=== PATIENT | female | born 1960 | race Caucasian/White ===

== ENCOUNTER → 2017-06-07 | Outpatient (CLI) | payer OTHER | LOC: FIMAGING 18:48 | PROVIDERS: ATTEND Psychiatry & Neurology Neurology | DX: R20.2 Paresthesia of skin (principal) ==

== ENCOUNTER 2017-09-16 11:00 | Day surgery (SDC) | payer OTHER ==
[2017-09-16 11:41] VITALS: PULSE 96
[2017-09-16] MEDS ORDERED: LR 1,000 ML IV ONE (11:52)
--- NOTE | 2017-09-16 12:06 | PDANEPAE ---
ANE History of Present Illness h/o polyps, diarrhea, here for colonoscopy ANE Past Medical History - Cardiovascular History Hx Hypertension: No Hx Arrhythmias: No Hx Chest Pain: No Hx Coronary Artery / Peripheral Vascular Disease: No Hx CHF / Valvular Disease: No Hx Palpitations: No - Pulmonary History Hx COPD: No Hx Asthma/Reactive Airway Disease: No Hx Recent Upper Respiratory Infection: No Hx Oxygen in Use at Home: No Hx Sleep Apnea: No Sleep Apnea Screening Result - Last Documented: Positive Pulmonary History Comment: PRONE TO BRONCHITIS WITH URIs - Neurologic History Hx Cerebrovascular Accident: No Hx Seizures: No Hx Dementia: No Neurologic History Comment: MIGRAINES OCCAS - Endocrine History Hx Diabetes: No Hypothyroid: Yes Obesity: moderate Endocrine History Comment: HYPOTHYROID - Renal History Hx Renal Disorders: No - Liver History Hx Hepatic Disorders: No Hepatic History Comment: CHOLECYSTECTOMY - Neurological & Psychiatric Hx Hx Neurological and Psychiatric Disorders: Yes Neurological / Psychiatric History Comment: CYMBALTA - Cancer History Hx Cancer: No - Congenital Disorder History Hx Congenital Disorders: No - GI History Hx Gastrointestinal Disorders: Yes Gastrointestinal History Comment: DIARRHEA. BLOOD TINGED. CRAMPING - Other Health History Other Health History: NEG. DRY SKIN W/OCCAS HIVES - Chronic Pain History Chronic Pain: Yes (L KNEE PAIN) - Surgical History Prior Surgeries: CHOLECYSTECTOMY 1998 ANE Review of Systems Review of Systems: - Exercise capacity Exercise capacity: >=4 METS ANE Patient History - Allergies Allergies/Adverse Reactions: aspirin Allergy (Verified 09/15/17 16:29) iodine Allergy (Verified 09/15/17 16:29) SOB FOLLOWING AN MRI W/CONTRAST NSAIDS (Non-Steroidal Anti-Inflamma Allergy (Verified 09/15/17 16:29) - Home Medications Home Medications: Clobetasol 0.05% 09/15/17 [Last Taken 1 Week Ago ~09/09/17] Cymbalta 09/15/17 [Last Taken 09/15/17] Hydrocodon-Acetaminophen 5-500 09/15/17 [Last Taken 1 Week Ago ~09/09/17] Imodium 2 mg (*) 09/15/17 [Last Taken Unknown] Lamotrigine 09/15/17 [Last Taken 09/15/17] Levothyroxine 09/15/17 [Last Taken 09/16/17] Zyrtec 09/15/17 [Last Taken 09/15/17] - NPO status NPO Status: no food or drink >8 hours NPO Since - Liquids (Date): 09/15/17 NPO Since - Liquids (Time): 11:30 NPO Since - Solids (Date): 09/15/17 NPO Since - Solids (Time): 11:30 - Anes Hx Anes Hx: post operative nausea - Smoking Hx Smoking Status: Never smoked - Alcohol Use Alcohol Use: Rarely - Family Anes Hx Family Anes Hx: none Family Hx Anesthesia Complications: NEG ANE Labs/Vital Signs - Vital Signs Blood Pressure: 138/86 Heart Rate: 96 Respiratory Rate: 16 O2 Sat (%): 94 Height: 162.56 cm Weight: 108.862 kg ANE Physical Exam - Airway Neck exam: FROM Mallampati Score: Class 2 Mouth exam: normal dental/mouth exam - Pulmonary Pulmonary: no respiratory distress, clear to auscultation - Cardiovascular Cardiovascular: regular rate and rhythym, no murmur, rub, or gallop - ASA Status ASA Status: III ANE Anesthesia Plan Anesthesia Plan: GA with mask Total IV Anesthesia: Yes
[2017-09-16] MEDS ORDERED: PROPOFOL/EMULSION 500 MG/50 ML BOTTLE IV ONE ×2 (12:09→12:34)
--- NOTE | 2017-09-16 12:14 | PDGENHP ---
History & Physical Chief Complaint: hematochezia, hx polyps, diarrhea History of Present Illness: see above Pertinent Past, Social, Family History: reviewed Relevant Physical Exam: nad Cardiorespiratory Assessment: RRR. ctab
[2017-09-16] MEDS ORDERED: ONDANSETRON 4 MG/2 ML VIAL IVP PRN (12:46)
[2017-09-16] MEDS ORDERED: ACETAMINOPHEN 500 MG TAB PO PRN (12:46)
[2017-09-16] MEDS ORDERED: NALOXONE HCL 0.4 MG/ML INJ IVP PRN (12:46)
--- NOTE | 2017-09-16 12:46 | POSTANESTH ---
Post Anesthetic Evaluation Cardiovascular Status: Normal, Stable, Similar to Pre-Op Cond Respiratory Status: Normal, Stable, Similar to Pre-op Cond. Level of Consciousness/Mental Status: Mildly Sleepy, Arousable Pain Control: Adequate, Prn Tx Ordered Nausea/Vomiting Control: Adequate, Prn Tx Ordered Complications Possibly Related to Anesthesia: None Noted
--- NOTE | 2017-09-16 12:46 | GIREPORT ---
[facility] Surgical Services - Endoscopy Department Patient Name: Lorena Darling Procedure Date: 09/16/2017 11:43 AM Patient Type: Outpatient Attending MD/ ER Physician: Lavelle Zabala MD Procedure: Colonoscopy Indications: Clinically significant diarrhea of unexplained origin, Hematochezia Providers: Lavelle Zabala MD Medicines: Propofol per Anesthesia Complications: No immediate complications. Description of Procedure: After obtaining informed consent, the scope was passed under direct vis ion. Throughout the procedure, the patient's blood pressure, pulse, and oxyg en saturations were monitored continuously. The Colonoscope with irrigatio n channel was introduced through the anus and advanced to the terminal il eum, with identification of the appendiceal orifice and IC valve. The colono scopy was performed without difficulty. The patient tolerated the procedure w ell. The quality of the bowel preparation was good. The terminal ileum, ileo cecal valve, appendiceal orifice, and rectum were photographed. Findings: The terminal ileum appeared normal. Normal mucosa was found in the entire colon. Biopsies for histology wer e taken with a cold forceps from the right colon, left colon and rectum f or evaluation of microscopic colitis. Many small and large-mouthed diverticula were found in the sigmoid colo n. Internal hemorrhoids were found. The hemorrhoids were small. Estimated Blood Loss: Estimated blood loss: none. Post Op Diagnosis: - No source of diarrhea was seen, pending biopsies for microscopic coli tis. Bleeding likely from hemorrhoids, and if continues could consider offic e visit to assess for banding. - The examined portion of the ileum was normal. - Normal mucosa in the entire examined colon. Biopsied. - Diverticulosis in the sigmoid colon. - Internal hemorrhoids. Recommendation: - Patient has a contact number available for emergencies. The signs and symptoms of potential delayed complications were discussed with the pat ient. Return to normal activities tomorrow. Written discharge instructions we re provided to the patient. - Resume previous diet. - Continue present medications. - Repeat colonoscopy in 5 years for surveillance. - Await pathology results. - Return to GI office in 1 month. - Thank you for allowing me to participate in the care of this patient. Attending Participation: I personally performed the entire procedure. I personally performed the entire procedure without the assistance of a fellow, resident or instructor adjunct surgical technician. Lavelle Zabala MD Lavelle Zabala MD 09/16/2017 12:45:24 PM This report has been signed electronicallyLavelle Zabala MD Number of Addenda: 0 Note Initiated On: 09/16/2017 11:43 AM Total Procedure Duration Time 0 hours 19 minutes 38 seconds [email or web address]
[2017-09-16 13:11] VITALS: RESP 13
[2017-09-16 14:34] VITALS: BP 140/91; O2SAT 94
[2017-09-16 14:36] VITALS: TEMP 97.9
== END 2017-09-16 14:40 | disposition home or self-care (01) ==
LOC: FSGY 11:00
PROVIDERS: ATTEND Internal Medicine Gastroenterology
PROC: 0DBE8ZX Excision of Large Intestine, Via Natural or Artificial Opening Endoscopic, Diagnostic (ICD-10-PCS; principal; 2017-09-16 12:45)
DX: K64.8 Other hemorrhoids (principal); K92.1 Melena; K57.30 Diverticulosis of large intestine without perforation or abscess without bleeding; E03.9 Hypothyroidism, unspecified; E66.9 Obesity, unspecified; Z86.010 Personal history of colon polyps
CPT/HCPCS: J2704

== ENCOUNTER 2018-02-12 11:28 | Emergency (ER) | payer OTHER ==
--- NOTE | 2018-02-12 12:15 | EDPHY ---
H & P Time Seen by Provider: 02/12/18 11:42 HPI/ROS: CHIEF COMPLAINT: Back pain HISTORY OF PRESENT ILLNESS: This is a 57-year-old female who reports injuring her back on Wednesday, 5 days ago. She did this while she was bending and trying to assist a large dog that was getting into her car. She has had persistent low back pain since that time. The pain is at the level of her waist and spreads bilaterally. She has no pain radiating into her buttocks or her legs. She denies numbness or tingling in her legs. She has not had lower extremity weakness. She denies bowel or bladder problems. She is allergic to NSAIDs and has been taking Tylenol along with an occasional Vicodin. She has had some pain relief, but continues with significant discomfort. She rates her pain as "9/10". This injury while she was working and she has been unable to see her workman's comp physician. REVIEW OF SYSTEMS: A ten point review of systems was performed and is negative with the exception of the items mentioned in the HPI. In addition, she notes that she had a prolonged cough last year, now resolved. Past medical history: 1. Currently on hypertension medication 2. Hypothyroid 3. Depression and anxiety 4. 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 Macular surgery on [id number] 2. 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 She does not use tobacco products. She drinks alcohol occasionally. She lives alone. General Appearance: Alert. Vital signs reviewed. Eyes: Pupils equal and round, no conjunctival injection, no discharge. Anicteric. Respiratory: Lungs are clear to auscultation; no wheezes, rales, or rhonchi. Cardiovascular: Regular rate and rhythm; no murmur, rub, or gallop. Gastrointestinal: Abdomen is obese, soft and nontender, no masses or organomegaly, bowel sounds normal. Skin: Warm and dry, no rashes on exposed skin, normal color. Back: Nontender to palpation over the thoracolumbar spine. No CVAT. No appreciable muscle spasm. Extremities: No lower extremity edema, no calf tenderness or swelling. Neurological: Alert and oriented. Moving all four extremities easily and equally. Strength is 5 over 5 bilaterally with testing of all major motor groups. Sensation is intact to light touch over all 4 extremities. Deep tendon reflexes are 2+ in the biceps and knees bilaterally. Gait is normal. Psychiatric: Normal affect. - Medical/Surgical History Hx Diabetes: No - Social History Smoking Status: Never smoked Constitutional: Initial Vital Signs Temperature (C) 37.1 C 02/12/18 11:35 Heart Rate 94 02/12/18 11:35 Respiratory Rate 16 02/12/18 11:35 Blood Pressure 115/83 H 02/12/18 11:35 O2 Sat (%) 95 02/12/18 11:35 O2 Delivery Mode Room Air Allergies/Adverse Reactions: aspirin Allergy (Verified 02/12/18 11:41) iodine Allergy (Verified 02/12/18 11:41) SOB FOLLOWING AN MRI W/CONTRAST NSAIDS (Non-Steroidal Anti-Inflamma Allergy (Verified 02/12/18 11:41) Home Medications: Medication Instructions Recorded Clobetasol 0.05% 09/15/17 Cymbalta 09/15/17 Lamotrigine 09/15/17 Levothyroxine 09/15/17 Zyrtec 09/15/17 2 Bp Meds? 02/12/18 Cyclobenzaprine [Flexeril 10 MG 10 mg PO TID #10 tab 02/12/18 (*)] Hydrocodone/APAP 5/325 [[place] 1 - 2 tab PO Q4 PRN #10 tab 02/12/18 5/325 (RX)] Multivitamins 02/12/18 methylPREDNISolone [Medrol Dose 4 mg PO DAILY #1 ea 02/12/18 Aravind] Medical Decision Making ED Course/Re-evaluation: Low back pain that began while bending and lifting. No neurologic findings on exam. I do not feel that imaging is warranted at this point in time. She is unable to take any NSAIDs due to allergy. She has taken Medrol in the past and a Medrol Dosepak as prescribed. In addition I am recommending lidocaine patches, which were applied in the emergency department. She will continue with Tylenol and with Vicodin for more severe pain. She understands that she should not take more than 3000 mg of Tylenol in a 24 hr time period and she also understands that Vicodin contains 325 mg of Tylenol per pill. She has also been given a prescription for Flexeril, along with precautions. She will follow-up with workman's compensation. We reviewed the neurologic danger signs that should prompt her to be re-evaluated immediately. She has no urinary complaints and I did not suspect urinary tract infection or pyelonephritis. There is no evidence of infection such as diskitis. She has had no trauma and I do not suspect fracture. She does not have abdominal pain. Differential Diagnosis: Back pain including but not limited to muscular pain, herniated disc, spine fracture, intra-abdominal causes and urinary tract infection. - Data Points Medications Given: Discontinued Medications Miscellaneous Medication (Icy Hot Lidocaine/Menthol 4%/1% Patch) 1 patch TD EDNOW ONE Stop: 02/12/18 12:24 Last Admin: 02/12/18 12:31 Dose: 1 patch Departure - Departure Disposition: Home, Routine, Self-Care Clinical Impression: Lumbar strain Qualifiers: Encounter type: initial encounter Qualified Code(s): S39.012A - Strain of muscle, fascia and tendon of lower back, initial encounter Condition: Good Instructions: Low Back Strain (ED), Lower Back Exercises (ED) Additional Instructions: Follow-up with workman's compensation as per your employer. Take the Medrol Dosepak as prescribed. I recommend that you continue taking Tylenol every 4-6 hours, take it on a regular basis. Remember that Vicodin has 325 mg of Tylenol in each dose. You can also continue with your Vicodin but do not take more than 3000 mg of Tylenol in a 24 hr time period. I am also prescribing Flexeril, a muscle relaxant to see if this will help. You can take this every 8 hours as needed. The Vicodin and the Flexeril will make you woozy and possibly off balance, sleepy and sometimes a bit confused. As you know, you cannot drive or work on these medications. In addition, you should use lidocaine patches as prescribed. You can buy 4% Lidocaine patches over the counter (any brand is fine). Use them according to the instructions on the packaging--ask the pharmacist about appropriate disposal of the patches. Referrals: Meeta Aponte MD [Primary Care Provider] - As per Instructions Stand Alone Forms: Narcotic Guidelines, Work Excuse Prescriptions: Cyclobenzaprine [Flexeril 10 MG (*)] 10 mg PO TID #10 tab Hydrocodone/APAP 5/325 [[place] 5/325 (RX)] 1 - 2 tab PO Q4 PRN #10 tab PRN Reason: pain methylPREDNISolone [Medrol Dose Aravind] 4 mg PO DAILY #1 ea
[2018-02-12] MEDS ORDERED: LIDOCAINE 4%/MENTHOL 1% PATCH TD ONE (12:23)
[2018-02-12] MEDS ORDERED: ACETAMINOPHEN 325 MG TAB PO ONE (12:33)
[2018-02-12] MEDS ORDERED: CYCLOBENZAPRINE 10 MG TAB PO ONE (12:52)
[2018-02-12] MEDS: predniSONE 20 MG TAB PO ONE ×2 (13:02→13:03)
[2018-02-12 13:11] VITALS: BP 131/83
[2018-02-12] MEDS ORDERED: PATCH REMOVAL 1 EA PATCH TD SCH (21:00)
== END 2018-02-12 13:08 | disposition home or self-care (01) ==
LOC: CED 11:28
DX: S39.012A Strain of muscle, fascia and tendon of lower back, initial encounter (principal); I10 Essential (primary) hypertension; X58.XXXA Exposure to other specified factors, initial encounter; Y92.69 Other specified industrial and construction area as the place of occurrence of the external cause; Y99.0 Civilian activity done for income or pay; Y93.89 Activity, other specified
CPT/HCPCS: J7512

== ENCOUNTER 2018-02-21 07:45 | Inpatient (IN) | payer OTHER ==
--- NOTE | 2018-02-21 08:33 | EDPHY ---
H & P Time Seen by Provider: 02/21/18 08:14 HPI/ROS: CHIEF COMPLAINT: Back pain HISTORY OF PRESENT ILLNESS: The patient is a 57-year-old female who returns to the emergency department ongoing back pain. Patient was seen in the emergency department on 01/26/2018 for an injury sustained at work 5 days earlier. 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 She was prescribed with NSAIDs, lidocaine patches and a Medrol Dosepak. Patient has subsequently followed up with her workman's Comp physician on . She finished her Medrol Dosepak. She is currently taking Vicodin and Flexeril. She states her pain is worsening. It is her lower back right greater than left. It radiates into her right buttock and her right posterior leg. She feels mild weakness in her right leg. She reports that her right leg gives out upon standing. No incontinence of urine or stool. No fevers or chills. Patient feels dehydrated because she is unable to take care of herself at home due to the pain. REVIEW OF SYSTEMS: My complete review of systems is negative except as mentioned in the HPI. 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 She drinks occasionally. Smoking Status: Never smoked Physical Exam: Vitals noted GENERAL: Mild acute distress, alert. HEENT: Eyes normal to inspection, normal pharynx, no signs of dehydration. NECK: [No thyromegaly, no lymphadenopathy, supple. RESPIRATORY: Clear to auscultation bilaterally, no rales, rhonchi or wheezing. CVS: Regular rate and rhythm, no rubs, murmurs, or gallops. ABDOMEN: Soft, nontender, nondistended, no organomegaly. BACK: Normal to inspection, no CVA tenderness. No rash. No spinal tenderness. The patient does have tenderness palpation over her right SI joint. Positive leg raise on the right. SKIN: Normal color, no rash, warm, dry. No pallor. EXTREMITIES: No pedal edema, no calf tenderness, no Homans sign or cords, no joint swelling. NEURO/PSYCH: Alert and oriented, normal mood and affect, normal motor sensory exam. Constitutional: Initial Vital Signs Temperature (C) 36.7 C 02/21/18 07:52 Heart Rate 130 H 02/21/18 07:52 Respiratory Rate 24 H 02/21/18 07:52 Blood Pressure 106/92 H 02/21/18 07:52 O2 Sat (%) 96 02/21/18 07:52 O2 Delivery Mode Room Air Allergies/Adverse Reactions: aspirin Allergy (Verified 02/21/18 07:50) iodine Allergy (Verified 02/21/18 07:50) SOB FOLLOWING AN MRI W/CONTRAST NSAIDS (Non-Steroidal Anti-Inflamma Allergy (Verified 02/21/18 07:50) Home Medications: Medication Instructions Recorded Cymbalta 09/15/17 Lamotrigine 09/15/17 Levothyroxine 09/15/17 Zyrtec 09/15/17 2 Bp Meds? 02/12/18 Cyclobenzaprine [Flexeril 10 MG 10 mg PO TID #10 tab 02/12/18 (*)] Hydrocodone/APAP 5/325 [[place] 1 - 2 tab PO Q4 PRN #10 tab 02/12/18 5/325 (RX)] Multivitamins 02/12/18 Medical Decision Making - Diagnostics Imaging Results: Imaging Impressions Lumbar Spine MRI 02/21/18 08:34 Impression: 1. Acute extruded right paracentral disk herniation at L4-L5 associated with an annular tear. There is also a mild compression deformity of the superior endplate of the L5 vertebral body with bone marrow edema. 2. Subacute mild compression deformity of L2 vertebral body with probable underlying hemangioma. 3. Left neural foraminal stenosis at L5-S1 secondary to broad-based left foraminal disk protrusion. Results called to Dr. Jewell Bustamante at 10:30 a.m. ED Course/Re-evaluation: In the emergency department I discussed possible etiologies with the patient. I answered all her questions. An IV was placed. Laboratory studies were obtained. Patient was given Solu-Medrol 125 mg IV, Valium 5 mg IV and morphine 4 mg IV MRI: Please refer the dictated report by the radiologist. The patient has noted stenosis and disc herniation. I discussed the results with Neurosurgery. I also admitted the patient to the hospitalist service. Dr. Beltre will admit. 1100: I discussed the case with Dr. Tello who was in the emergency department evaluated the patient. Differential Diagnosis: My differential includes but is not limited to musculoskeletal strain, disc herniation, ligamentous injury, mass, malignancy, cauda equina syndrome - Data Points Medications Given: Discontinued Medications Diazepam (Valium) 2.5 mg IVP EDNOW ONE Stop: 02/21/18 08:36 Last Admin: 02/21/18 09:00 Dose: 2.5 mg Hydromorphone HCl (Dilaudid) 0.5 mg IVP EDNOW ONE Stop: 02/21/18 08:36 Last Admin: 02/21/18 08:59 Dose: Not Given Sodium Chloride (Ns) 1,000 mls @ 0 mls/hr IV EDNOW ONE; Wide Open PRN Reason: Protocol Stop: 02/21/18 08:36 Last Admin: 02/21/18 09:00 Dose: 1,000 mls Methylprednisolone Sodium Succinate (Solu-Medrol) 125 mg IVP EDNOW ONE Stop: 02/21/18 08:37 Last Admin: 02/21/18 08:59 Dose: 125 mg Morphine Sulfate (Morphine) 4 mg IVP EDNOW ONE Stop: 02/21/18 09:03 Last Admin: 02/21/18 09:05 Dose: 4 mg Departure - Departure Disposition: Home, Routine, Self-Care Clinical Impression: Low back pain Qualifiers: Chronicity: acute Back pain laterality: bilateral Sciatica presence: with sciatica Sciatica laterality: sciatica of right side Qualified Code(s): M54.41 - Lumbago with sciatica, right side Condition: Good
[2018-02-21] MEDS ORDERED: HYDROmorphONE/DILAUDID 2 MG/ML INJ IVP ONE (08:35)
[2018-02-21] MEDS ORDERED: DIAZEPAM 5 MG/ML 1 ML SYR IVP ONE (08:35)
[2018-02-21] MEDS ORDERED: NS 1,000 ML IV ONE (08:35)
[2018-02-21] MEDS ORDERED: methylPREDNISolone SOD SUCC 125 MG/2 ML VIAL IVP ONE (08:36)
[2018-02-21 10:55] LABS: PLATELET COUNT 398 10^3/uL (150-400)
[2018-02-21] MEDS ORDERED: CARBOXYMETHYLCELLULOSE 1% 0.4 ML DROPERETTE EACHEYE PRN (12:33)
[2018-02-21] MEDS ORDERED: ONDANSETRON DISINTEGRATING 4 MG TAB PO PRN (12:49)
[2018-02-21] MEDS ORDERED: ONDANSETRON 4 MG/2 ML VIAL IVP PRN (12:49)
--- NOTE | 2018-02-21 13:14 | GCON ---
[f rep st] CONSULTATION DATE OF CONSULTATION: 02/21/2018 REASON FOR CONSULTATION: Low back pain with right lower extremity radiculopathy and weakness. HISTORY OF PRESENT ILLNESS: Ms. Darling is an otherwise fairly healthy 57- year-old woman who presents back to the emergency department today for progressive right lower extremity radiculopathy and weakness, as well as increasing low back pain. The patient states that she was lifting an approximately [id number]-phkoe dog from the ground into a car on January 21, 2018. At that time, she presented to the [facility] emergency department on January 26, 2018, at which point she was prescribed NSAIDs, lidocaine patches and Medrol dose pack. She was subsequently followed up with her Workman's Comp physician at [facility]. The patient finished her Medrol Dosepak just a few days ago and was also taking Vicodin and Flexeril and noted that her low back pain and right lower extremity pain were worsening, as well as some right hip flexion weakness. The pain is located into the right lower extremity with almost no left lower extremity radiculopathy. The pain goes in the right buttock, right posterior leg into her calf and foot. No loss of bowel or bladder function or incontinence. She does have a history of IBS, but denies any perineal or saddle anesthesia. Because of the inability to take care of herself, she presents emergency department today for further evaluation and management. MRI was completed, which demonstrated a large right-sided L4-5 disk herniation for which a neurosurgical consultation was requested. REVIEW OF SYSTEMS: A complete 10-point review of systems from the patient intake form were reviewed by myself, significant only for those noted above in the HPI. PAST SURGICAL HISTORY: 1. Cholecystectomy. 2. History of macular surgery. PAST MEDICAL HISTORY: 1. Depression. 2. Anxiety. 3. Hypothyroidism. 4. Hypertension. 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 She denies tobacco use or illicit drug use, but does utilize alcohol socially. ALLERGIES: 1. Aspirin. 2. Iodine. 3. NSAIDs. MEDICATIONS: 1. Cymbalta. 2. Lamotrigine. 3. Levothyroxine. 4. Zyrtec. 5. Cyclobenzaprine. 6. [place] 5/325. 7. Multivitamin. FAMILY HISTORY: Negative for any aneurysms or brain tumors. PHYSICAL EXAMINATION: VITAL SIGNS: Blood pressure 123/65, heart rate 89, O2 saturation 94% on room air, temperature 37.2. GENERAL: The patient is lying in gurney on her lateral side and appears to be somewhat uncomfortable, but in no acute distress. She is quite pleasant and cooperative with the examination. Affect appears to be appropriate. HEENT: Head is atraumatic, normocephalic. Pupils are normal to inspection, anicteric. Sclerae are clear. CARDIOVASCULAR : Deferred. PULMONARY: Deferred. MOTOR: Shows 5/5 strength with bilateral batch blender strength biceps, triceps, deltoid, left sided hip flexion, knee flexion, extensor, plantar dorsiflexion. Right hip flexor is 5-/5 and appears to be somewhat pain and effort limited. SENSORY: Shows intact sensation throughout all major dermatomes of the bilateral upper and lower extremities throughout. OTHER: Negative Forman's, negative Babinski. REFLEXES: 1+ reflexes at the bilateral brachioradialis and patellae. NEUROLOGIC: CN II-XII intact: PERRLS, face symmetric, tongue protrudes midline, uvula and palate elevate symmetrically , facial sensation is intact to light touch, shoulder shrug symmetric, intact hearing to light finger scratch, EOMI. MEDICAL DECISION MAKING: Patient underwent MRI of the lumbar spine without contrast completed at [facility] and reviewed by myself on the PACS system. There is an acute extruded right paracentral disc herniation L4- L5 associated with an annular tear. There is also a mild compression deformity of the superior endplate of the L5 vertebral body with bone marrow edema. There is subacute mild compression deformity of L2 with probable underlying hemangioma. There is left neural foraminal stenosis L5-S1 secondary to broad- based left foraminal disc extrusion ASSESSMENT/PLAN: Ms Darling is a 57-year-old woman who suffered acute onset of low back pain with right lower extremity radiculopathy which has progressed to right sided hip flexion weakness since a lifting injury on approximately January 21, 2018. The patient has been treated with Lidoderm patches, pain medications including oral steroids. I discussed with the patient her treatment options moving forward and reviewed her MRI scan with her in the emergency department today. I explained to her that this point her weakness was somewhat concerning to myself in that given the extruded fragment and herniation with the weakness, surgery would be indicated. Her other treatment options would include a possible spinal injection with PT to work on strengthening after her pain control. Discussed the pros and cons of these options and she at this time, would like to try a steroid injection for pain control. We will try to get this completed in the hospital and I have placed an order for IR to complete this during this hospitalization. I did explain to her that if she does not improve with any further interventions or develops worsening weakness or any red flag signs or symptoms, that she is going to require surgical intervention in the way of a right-sided L4-5 diskectomy with lateral recess decompression. She expressed understanding. I discussed this with the ER room physician as well as Dr. Beltre, who were in agreement. She will be admitted to the medicine service for pain control. Please note, the patient was seen in the emergency department at approximately 11:00 am on February 21, 2018. /[id number]/MODL MTDD
--- NOTE | 2018-02-21 13:14 | GHP ---
[f rep st] HISTORY AND PHYSICAL DATE OF ADMISSION: 02/21/2018 The patient is a 57-year-old female with a history of depression, anxiety, and recent eye surgery, wh o presents with a couple weeks of low back pain. 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 She has had lower extremity pain and weakness since then. Apparently, there was some relationship of this injury to work and going through her company's channels delayed her care, but she presents to the emergency department this morning with excruciating pain. She has not had fifi wel or bladder incontinence. She did have diarrhea this morning. She has had some subjective weakne ss in her leg. She has not fallen. She has not had fever, chills, cough, sputum, nausea, or vomitin g. She is able to walk 5 miles with her dogs without chest pain or other exertional symptoms. REVIEW OF SYSTEMS: Complete 10-point review of systems conducted, negative except as noted in the HP I. PAST MEDICAL HISTORY: 1. Depression. 2. Anxiety. 3. Irritable bowel syndrome. 4. Hypothyroidism. 5. Recent eye surgery. She was placed on antihypertensives in the postoperative period. ALLERGIES: Aspirin, iodine, NSAIDs. HOME MEDICATIONS: Amlodipine, Toponas, triamterene/hydrochlorothiazide, Refresh eye tears, cetirizine, cyclobenzaprine, duloxetine, lamotrigine, levothyroxine, loperamide. SOCIAL HISTORY: No tobacco. Occasional alcohol. FAMILY HISTORY: Mother had primary biliary cirrhosis and of that. PHYSICAL EXAMINATION: VITAL SIGNS: Temp 37, blood pressure 123/65, pulse 89, breathing 18 times a m inute, 94% on room air. GENERAL: No acute distress. HEENT: Sclerae anicteric. Oropharynx clear. Mucous membranes moist. NECK: Supple without lymphadenopathy or JVD. LUNGS: Clear to auscultatio n bilaterally. HEART: S1, S2. ABDOMEN: Soft, nontender, nondistended. LOWER EXTREMITIES: Without edema. Calves nontender. SKIN: Without rash. NEUROLOGIC: Lower extremity neurologic exam is not performed, given the patient's level of pain. DIAGNOSTICS: I discussed the case Dr. Austin Gusman. Lower extremity MRI shows acute disk herniation at L4-L5 associated with an annular tear, as well as mild compression deformity of the superior endplate. ASSESSMENT/PLAN: This 57-year-old female presents with severe lower extremity pain secondary to acut e L4-L5 disk tear. 1. L4-L5 disk tear. The patient is seen by Neurosurgery, offered surgery. She wishes to try an epi dural steroid injection first. I did discuss with the patient that an acute injury like this typical ly responds well to surgery. I have attempted to order an epidural steroid injection. 2. Low back pain with muscle spasm. She takes a muscle relaxant at home. I put her on Valium, oxyc odone, and steroids. 3. Depression. Will continue her medicines. 4. Anxiety. Will continue her Lamictal and Cymbalta. 5. Diarrhea. Will follow. 6. Prophylaxis. The patient is a candidate for pharmacologic venous thromboembolism prophylaxis. Jamel fernando, given need for upcoming spinal procedures, will hold and provide sequential compression devic es. 7. Disposition. Inpatient status. /[id number]/MODL
[2018-02-21] MEDS: oxyCODONE IR 5 MG TAB PO PRN (14:06)
[2018-02-21] MEDS: DIAZEPAM 5 MG TAB PO PRN (14:06)
[2018-02-21] MEDS: ACETAMINOPHEN 500 MG TAB PO SCH ×2 (14:07→22:51)
[2018-02-21] MEDS: NS 1,000 ML IV SCH (14:12)
[2018-02-21] MEDS: methylPREDNISolone SOD SUCC 125 MG/2 ML VIAL IVP SCH ×3 (14:15→22:52)
[2018-02-21] MEDS: lamoTRIgine 100 MG TAB PO SCH (14:20)
--- NOTE | 2018-02-21 14:32 | PDMN ---
Medical Necessity Medical necessity: Pt meets inpt criteria per MD order and MCG M-63, Back Pain, A-1 day. Pt admitted w/increasing lower back pain and progressive RLE radiculopathy, weakness, difficulty w/ADL's from L4-L5 disk tear, will have steroid injection for pain control with possibility of surgery if no improvement , med nec for on going inpt treatment and monitoring.
[2018-02-21] MEDS ORDERED: IOPAMIDOL (ISOVUE-M 300) 15 ML VIAL ONE (15:33)
[2018-02-21] MEDS ORDERED: TRIAMCINOLONE ACETONIDE 200 MG/5 ML MDV IM ONE (15:33)
[2018-02-21] MEDS ORDERED: LIDOCAINE 1% 300 MG/30 ML SDV ONE (15:34)
[2018-02-21] MEDS: CYCLOBENZAPRINE 10 MG TAB PO SCH ×2 (16:27→22:51)
[2018-02-21] MEDS: LOPERAMIDE HCL 2 MG CAP PO PRN (19:57)
[2018-02-22] MEDS: oxyCODONE IR 5 MG TAB PO PRN ×4 (04:36→21:25)
[2018-02-22 05:05] LABS: PLATELET COUNT 442 10^3/uL (150-400)
[2018-02-22 05:12] LABS: INR 1.02 (0.83-1.16); PROTIME(PATIENT) 13.6 SEC (12.0-15.0)
[2018-02-22] MEDS: LEVOTHYROXINE 200 MCG TAB PO SCH (05:23)
[2018-02-22] MEDS: ACETAMINOPHEN 500 MG TAB PO SCH ×3 (05:23→22:54)
[2018-02-22] MEDS: methylPREDNISolone SOD SUCC 125 MG/2 ML VIAL IVP SCH ×4 (05:23→23:49)
--- NOTE | 2018-02-22 07:12 | NEUSURGPN ---
Assessment/Plan: Assessment: 57 yo female that is admitted to with lower back pain and RLE pain that has a right sided HNP at L4/5 Plan: -right sided HNP at L4/5: pt underwent an injection yesterday and is better but not "100%", she has noticed some improvements -strength is better -PT/OT pending this am -pt will work with RN/PT/OT today and see how she does-if she is better we can dc and have her follow up in the office in 2-3 weeks for a recheck -if she is not improved to a satisfactory point and if not cleared from PT/OT then we can talk about surgery -if surgery indicated she will need a right L4/5 CYNTHIA -please call with any questions or concerns -warning signs given -pt understands and agrees -d/w Dr Gusman Subjective: Awake and alert. NAD. Eating/drinking and voiding. No f/c/n/v/d. No combs/neck/ chest/abd or gu complaints. Objective: AAO x 3, PERRLA/EOMI no droop CN 2-12 grossly intact +lt touch 5/5 BUE/BLE = Neuro Check Frequency: per routine Urinary Catheter in Place: No - Physician Discussed Patient with : Nase[facility] Neurosurgery Physical Exam - Vitals, I&O, Labs I and O 02/21/18 02/22/18 02/23/18 05:59 05:59 05:59 Intake Total 1400 Output Total 1200 Balance 200 Weight 97.522 kg Intake: Oral (ml) 400 IV Infused (ml) 1000 Output: Urine (ml) 1200 Toilet 1200 Other: Output Comment Toilet Diarrhea Number of Voids 1 Toilet 1 Vital Signs Temp Pulse Resp BP Pulse Ox 36.6 C 68 17 123/61 H 95 02/22/18 04:00 02/22/18 04:00 02/22/18 04:00 02/22/18 04:00 02/22/18 04:00 Laboratory Results 02/22/18 04:28 02/22/18 04:28 ICD10 Worksheet Patient Problems: Problems Problem Status Onset Low back pain Acute
[2018-02-22] MEDS: CETIRIZINE 10 MG TAB PO SCH (07:22)
[2018-02-22] MEDS: CYCLOBENZAPRINE 10 MG TAB PO SCH ×3 (07:23→22:54)
[2018-02-22] MEDS: lamoTRIgine 100 MG TAB PO SCH (07:23)
[2018-02-22] MEDS: DULoxetine 60 MG CAP PO SCH (07:23)
--- NOTE | 2018-02-22 08:45 | HOSPPROG ---
Hospitalist Progress Note Assessment/Plan: Patient is a 57-year-old female with history of depression, anxiety and recent eye surgery. She presented the emergency room with ongoing back pain for the past couple weeks. 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 She subsequently had a injection yesterday at L4-5. Today is my 1st encounter with the patient. Chart reviewed. * acute back pain, L4-L5 disc tear -status post injection -pain is slightly better -if she does not improve she will need surgery * depression and anxiety -home medications continued * diarrhea -no further complaints *leukocytosis -secondary to steroids *Obesity with a BMI of 36.9 -likely impacting the above -she's motivated to take better care of herself overall *Plan: suspect she will need surgery, pain is minimally controlled during my evaluation. To get evaluated by PT and OT. Subjective: Lorena says her pain is ongoing in the back and going down her leg. Objective: Vital Signs Temp Pulse Resp BP Pulse Ox 36.6 C 64 18 125/73 H 99 02/22/18 07:21 02/22/18 07:21 02/22/18 07:21 02/22/18 07:21 02/22/18 07:21 Laboratory Results 02/22/18 04:28 02/22/18 04:28 02/21/18 02/22/18 02/23/18 05:59 05:59 05:59 Intake Total 1400 Output Total 1200 Balance 200 PT 13.6 SEC (12.0-15.0) 02/22/18 04:28 INR 1.02 (0.83-1.16) 02/22/18 04:28 - Physical Exam Constitutional: appears nourished, obese, uncomfortable, No not in pain Eyes: PERRL Ears, Nose, Mouth, Throat: hearing normal Cardiovascular: regular rate and rhythym Respiratory: no respiratory distress Skin: warm Musculoskeletal: muscular tenderness Neurologic: AAOx3 Psychiatric: interacting appropriately ICD10 Worksheet Patient Problems: Problems Problem Status Onset Low back pain Acute
[2018-02-22] MEDS ORDERED: Herbals/Supplements -Info Only PO SCH (09:00)
[2018-02-22] MEDS: DIAZEPAM 5 MG TAB PO PRN (10:55)
--- NOTE | 2018-02-22 14:40 | ASMTCMCOM ---
CM Note CM Note Notes: Reviewed patient's chart for d/c planning purposes. Patient admitted with Lower Back Pain. Discussed with RN, patient scheduled for surgery tomorrow. Patient's d/c plan to be determined at this time. CM will follow-up post surgery. Current Plan: TBD Date Signed: 02/22/2018 02:39 PM Electronically Signed By:Liv Honeycutt RN
[2018-02-23] MEDS: LEVOTHYROXINE 200 MCG TAB PO SCH (05:18)
[2018-02-23] MEDS: methylPREDNISolone SOD SUCC 125 MG/2 ML VIAL IVP SCH ×2 (05:18→12:51)
[2018-02-23] MEDS: ACETAMINOPHEN 500 MG TAB PO SCH ×3 (05:18→22:15)
--- NOTE | 2018-02-23 06:07 | POSTANESTH ---
Post Anesthetic Evaluation Cardiovascular Status: Normal, Stable Respiratory Status: Requires Airway Assist Level of Consciousness/Mental Status: Moderately Sleepy Pain Control: Adequate, Prn Tx Ordered Nausea/Vomiting Control: Adequate, Prn Tx Ordered Complications Possibly Related to Anesthesia: None Noted
--- NOTE | 2018-02-23 06:10 | PDANEPAE ---
ANE History of Present Illness 57 you female with acute back injury about two weeks ago for L 4/5 CYNTHIA today. ANE Past Medical History - Cardiovascular History Hx Hypertension: Yes Hx Arrhythmias: No Hx Chest Pain: No Hx Coronary Artery / Peripheral Vascular Disease: No Hx CHF / Valvular Disease: No Hx Palpitations: No Cardiovascular History Comment: pt reports she was on diuretic and Ca channel katherine for macular detachment, not HTN. Unclear if she has HTN. - Pulmonary History Hx COPD: No Hx Asthma/Reactive Airway Disease: No Hx Recent Upper Respiratory Infection: No Hx Oxygen in Use at Home: No Hx Sleep Apnea: No Sleep Apnea Screening Result - Last Documented: Positive Pulmonary History Comment: PRONE TO BRONCHITIS WITH URIs - Neurologic History Hx Cerebrovascular Accident: No Hx Seizures: No Hx Dementia: No Neurologic History Comment: MIGRAINES OCCAS - Endocrine History Hx Diabetes: No Hypothyroid: Yes Obesity: moderate - Renal History Hx Renal Disorders: No - Liver History Hx Hepatic Disorders: No Hepatic History Comment: CHOLECYSTECTOMY - 1998 - PONV - Neurological & Psychiatric Hx Hx Neurological and Psychiatric Disorders: Yes Neurological / Psychiatric History Comment: anxiety/depression - on CYMBALTA - Cancer History Hx Cancer: No - Congenital Disorder History Hx Congenital Disorders: No - GI History Hx Gastrointestinal Disorders: Yes Gastrointestinal History Comment: DIARRHEA. BLOOD TINGED. CRAMPING - Other Health History Other Health History: dry eyes. DRY SKIN W/OCCAS HIVES - Chronic Pain History Chronic Pain: Yes (L KNEE PAIN) - Surgical History Prior Surgeries: CHOLECYSTECTOMY 1998 ANE Review of Systems Review of Systems: - Systems Cardiac: Reports: no symptoms Respiratory: Reports: no symptoms Muscolosketal: Reports: back pain ANE Patient History - Allergies Allergies/Adverse Reactions: aspirin Allergy (Verified 02/21/18 07:50) iodine Allergy (Verified 02/21/18 07:50) SOB FOLLOWING AN MRI W/CONTRAST NSAIDS (Non-Steroidal Anti-Inflamma Allergy (Verified 02/21/18 07:50) - Home Medications Home Medications: Acetaminophen [Tylenol 325mg (*)] 325 mg PO Q6 PRN 02/21/18 [Last Taken 02/20/18 ] Carboxymethylcellulose 1% [Refresh Celluvisc (*)] 1 drop EACHEYE PRN PRN [Last Taken 02/20/18] Cetirizine [ZyrTEC 10 mg (*)] 10 mg PO DAILY 02/21/18 [Last Taken 02/20/18] Duloxetine HCl [Duloxetine HCl] 60 mg PO DAILY 02/21/18 [Last Taken 02/21/18] Herbals/Supplements -Info Only 1 ea PO DAILY 02/21/18 [Last Taken Unknown] Levothyroxine Sodium [Levothyroxine Sodium] 200 mcg PO DAILY@06 02/21/18 [Last Taken 02/21/18] Loperamide HCl [Imodium 2 mg (*)] 2 mg PO PRN PRN 02/21/18 [Last Taken 02/20/18] Triamterene/Hctz 75/50 [Maxzide 75-50 mg Tab (*)] 1 tab PO DAILY 02/21/18 [Last Taken 02/17/18] amLODIPine BESYLATE [Amlodipine Besylate] 5 mg PO DAILY 02/21/18 [Last Taken 12/31] lamoTRIgine [Lamotrigine] 200 mg PO DAILY 02/21/18 [Last Taken 02/21/18] - NPO status NPO Since - Liquids (Date): 02/23/18 NPO Since - Liquids (Time): 00:00 NPO Since - Solids (Date): 02/23/18 NPO Since - Solids (Time): 00:00 - Anes Hx Anes Hx: post operative nausea and vomiting - Smoking Hx Smoking Status: Never smoked - Family Anes Hx Family Anes Hx: neg - N/A Family Hx Anesthesia Complications: NEG ANE Labs/Vital Signs - Labs Result Diagrams: 02/22/18 04:28 02/22/18 04:28 - Vital Signs Blood Pressure: 121/68 Heart Rate: 63 Respiratory Rate: 17 O2 Sat (%): 98 Height: 162.56 cm Weight: 97.522 kg ANE Physical Exam - Airway Neck exam: FROM Mallampati Score: Class 2 - Pulmonary Pulmonary: clear to auscultation - Cardiovascular Cardiovascular: regular rate and rhythym - ASA Status ASA Status: II ANE Anesthesia Plan Anesthesia Plan: general endotracheal anesthesia
[2018-02-23] MEDS ORDERED: LR 1,000 ML IV ONE (06:43)
[2018-02-23] MEDS ORDERED: CEFAZOLIN 2 GM/DEXTROSE/100 ML BAG IV ONE (06:44)
--- NOTE | 2018-02-23 06:45 | PDHPUP ---
History & Physical Update H&P update statement: This history and physical update is based on an assessment of the patient which was completed after admission or registration (within 24 hours), but prior to the surgery/procedure. H&P update: H&P reviewed & patient examined, changes noted (Patient has an improvement in her symptoms following the BRYANT but is still having issues with ambulation and transfer. Right hip flexor with 5-/5 everything else 5/5. Reviewed the risks and benefits with her and she wishes to proceed with surgery. Consents have been signed and site marked. All questions answered.)
[2018-02-23] MEDS ORDERED: EPINEPHrine 1 MG/ML INJ ONE (06:48)
[2018-02-23] MEDS ORDERED: THROMBIN (BOVINE) 20,000 UNIT VIAL TP ONE (06:48)
[2018-02-23] MEDS ORDERED: BUPIVACAINE 0.25% 30 ML SDV ONE (06:48)
[2018-02-23] MEDS ORDERED: CHLORHEXIDINE GLUC HIBICLENS 118 ML BTL TP ONE (06:48)
[2018-02-23] MEDS ORDERED: BACITRACIN 50,000 UNITS/10 ML SYR IRR ONE (06:49)
[2018-02-23] MEDS: DIAZEPAM 5 MG TAB PO PRN ×2 (06:55→22:15)
[2018-02-23] MEDS ORDERED: PROPOFOL/EMULSION 500 MG/50 ML BOTTLE IV ONE ×2 (07:03→08:32)
[2018-02-23] MEDS ORDERED: ROCURONIUM 50 MG/5 ML VIAL ONE (07:03)
[2018-02-23] MEDS ORDERED: LIDOCAINE 2% 5 ML SDV ONE (07:03)
[2018-02-23] MEDS ORDERED: DEXAMETHASONE 4 MG/ML VIAL ONE (07:03)
[2018-02-23] MEDS ORDERED: fentaNYL 250 MCG/5 ML INJ ONE (07:03)
[2018-02-23] MEDS ORDERED: PROPOFOL 200 MG/20 ML VIAL ONE (08:05)
[2018-02-23] MEDS ORDERED: ONDANSETRON 4 MG/2 ML VIAL ONE (08:42)
[2018-02-23] MEDS ORDERED: NALOXONE HCL 0.4 MG/ML INJ IVP PRN ×2 (08:45→10:06)
[2018-02-23] MEDS ORDERED: fentaNYL 100 MCG/2 ML INJ IVP PRN (08:45)
[2018-02-23] MEDS ORDERED: LR 500 ML IV PRN (08:45)
[2018-02-23] MEDS ORDERED: ALBUTEROL 3 ML DEYVIAL IH PRN (08:45)
[2018-02-23] MEDS ORDERED: oxyCODONE IR 5 MG TAB PO PRN (08:45)
[2018-02-23] MEDS ORDERED: PROMETHAZINE HCL 25 MG/ML INJ IVP PRN (08:45)
[2018-02-23] MEDS ORDERED: CYCLOBENZAPRINE 10 MG TAB PO ONE (09:00)
[2018-02-23] MEDS: CYCLOBENZAPRINE 10 MG TAB PO SCH ×3 (09:42→22:15)
[2018-02-23] MEDS: CETIRIZINE 10 MG TAB PO SCH (09:42)
--- NOTE | 2018-02-23 09:56 | POSTOPPROG ---
Post Op Note Date of Operation: 02/23/18 Surgeon: Austin Gusman Shipping Specialist: So Anesthesiologist: Marcelo Anesthesia: GET(General Endotracheal), Local (Specify) Pre-op Diagnosis: HNP right L4/5 Post-op Diagnosis: S/P CYNTHIA with LD placement for preexisting CSF leak discovered at surgery Indication: Lumbar stenosis Procedure: right sided L4/5 CYNTHIA, LD placement Findings: CSF leak noted Inf/Abcess present in the surg proc area at time of surgery?: Yes Depth: Deep Incisional (Fascial) EBL: 50-100 Total fluids administered: see anesthesia record Drains: Other (LD open continuous at 10-15 cc hr) Specimen(s): cultures sent for analysis surgery showed ?purulence vs steroid mixed with CSF fluid
--- NOTE | 2018-02-23 10:05 | SOAPPROG ---
SOAP Progress Note Assessment/Plan: Post Op Visit: S: Awake and alert. NAD. Pt with some expected lower back pain, RLE feels a bit better but tough to tell per pt as was present with ambulation as well. O: AFVSS/PERRLA/EOMI no droop CN 2-12 grossly intact +lt touch 5/5 BUE/BLE = with some continue right HF weakness at 5-/5 due to pain CDI LD in place and open at 10-15 cc/hr A/P: 57 yo female that is admitted to IM with lower back pain and RLE pain that has a right sided HNP at L4/5. Pt is s/p right L4/5 CYNTHIA with LD placement. CSF leak discovered during exposure prior to any contact with Dura by Dr Gusman (please see op note for details and further description). ?injection related or disc herniation related. Cloudy dc noted in CSF and will test for infection vs steroid from BRYANT. BC x 2 ordered -call with any questions or concerns -take medications as directed -d/w Pt the plan and need for lying flat/LD and reardon-she is in agreement -all questions and concerns answered -d/w Dr Gusman and update given Objective: Vital Signs Temp Pulse Resp BP Pulse Ox 36.4 C 64 20 132/67 H 100 02/23/18 09:00 02/23/18 09:45 02/23/18 09:45 02/23/18 09:45 02/23/18 09:45 Laboratory Results 02/22/18 04:28 02/22/18 04:28 02/22/18 02/23/18 02/24/18 05:59 05:59 05:59 Intake Total 1400 Output Total 1200 2200 Balance 200 -2200 PT 13.6 SEC (12.0-15.0) 02/22/18 04:28 INR 1.02 (0.83-1.16) 02/22/18 04:28 ICD10 Worksheet Patient Problems: Problems Problem Status Onset CSF leak Acute Herniated intervertebral disc of lumbar spine Acute Low back pain Acute Lumbar radicular pain Acute - ICD10 Problem Qualifiers (1) Herniated intervertebral disc of lumbar spine (2) CSF leak (3) Lumbar radicular pain
[2018-02-23] MEDS ORDERED: LACTULOSE 20 GM/30 ML UDCUP PO PRN (10:06)
[2018-02-23] MEDS ORDERED: POLYETHYLENE GLYCOL 3350 17 GM PKT PO PRN (10:06)
[2018-02-23] MEDS ORDERED: NS 500 ML IV PRN (10:06)
[2018-02-23] MEDS ORDERED: HYDROmorphONE/DILAUDID 6 MG/30 ML PCA IV PRN (10:06)
[2018-02-23] MEDS ORDERED: ZOLPIDEM TARTRATE 5 MG TAB PO PRN (10:06)
[2018-02-23] MEDS ORDERED: HYDROCODONE/APAP 5/325 TAB PO PRN (10:06)
[2018-02-23] MEDS ORDERED: HYDROmorphONE/DILAUDID 1 MG/ML INJ IVP PRN (10:06)
[2018-02-23] MEDS ORDERED: MAGNESIUM HYDROXIDE 30 ML UDCUP PO PRN (10:06)
[2018-02-23] MEDS ORDERED: BISACODYL 10 MG SUPP PR PRN (10:06)
[2018-02-23] MEDS ORDERED: DEXMEDETOMIDINE HCL 400 MCG in NS 100 ML IV SCH (10:30)
[2018-02-23] MEDS ORDERED: VANCOMYCIN 1.25 GM in D5W 250 ML IV SCH (10:30)
[2018-02-23] MEDS: NS 1,000 ML IV SCH (11:04)
--- NOTE | 2018-02-23 11:18 | GOP ---
[f rep st] OPERATIVE REPORT DATE OF OPERATION: 02/23/2018 SURGEON: Austin Gusman MD BEAM BUILDER HELPER: Wilfred Rizzo PA-C. PREOPERATIVE DIAGNOSIS: 1. Herniated nucleus pulposus with spinal stenosis, right side L4-L5, with progressive low back pain, right lower extremity radiculopathy and weakness. 2. Treatment refractory to nonoperative intervention. POSTOPERATIVE DIAGNOSIS: Lumbar spinal stenosis and radiculopathy with weakness secondary to lumbar spinal epidural abscess. PROCEDURE PERFORMED: 1. Right-sided L4-L5 hemilaminotomy with mesial facetectomy, microdiskectomy and evacuation of epidural abscess. 2. Use of intraoperative fluoroscopy, less than 1 hour physician time. 3. Use of operating microscope. 4. Lumbar drain placement. 5. Use of intraoperative neuromonitoring. FINDINGS: there was ventral epidural abscess with a ventral dural tear and CSF leak remote from our hemilaminotomy SPECIMENS: Cultures were sent to Microbiology from the epidural fluid collection. INDICATIONS: The patient is a 57-year-old woman who unfortunately suffered low back pain with right lower extremity radiculopathy after lifting a heavy dog 4 or 5 weeks prior to admission to the hospital. The patient presented for the second time to the emergency department with progressive right lower extremity weakness and progressive low back pain. Imaging demonstrated a right L4-L5 disk herniation with a ventral epidural fluid collection which was thought to be secondary to a hematoma. The patient underwent an injection but failed nonoperative management. At this point, we decided to proceed forth with surgical intervention. DESCRIPTION OF PROCEDURE: The patient was brought to the operating theater and underwent general endotracheal anesthesia without complications. She had Venodynes, HEATHER hose, and appropriate lines placed by Anesthesia. She was flipped prone on the Adrian frame, and all bony processes were inspected and padded. The lower lumbar region was then prepped and draped in usual sterile surgical fashion. A time-out was completed per protocol, and the patient received antibiotics within 1 hour of incision. Using lateral fluoroscopy and a spinal needle, we picked our entry point to the L4-L5 level. This was marked as a vertical incision at this level. The incision was infiltrated with Marcaine with epinephrine. The incision was taken down with the scalpel blade and then, using monopolar, taken down to the right side of the L4-L5 interlaminar space. Deep retractors were placed to maintain exposure, and we confirmed our level using lateral fluoroscopy. The microscope was brought in the field to assist with microscopic dissection and to maintain illumination and magnification. Using a combination of the bur tip on the drill and Kerrison punches, we completed right-sided L4-L5 hemilaminotomy with mesial facetectomy and lateral recess decompression. I then resected the ligamentum flavum. When I retracted the thecal sac and nerve root medially, she had immediate egress of cloudy-appearing purulent material from the ventral epidural space. I immediately cultured this material and sent it for stat Gram stain. Using the angled nerve hooks, I lifted up the nerve root and dura and noted that the purulent material was then followed by clear fluid which was suspicious for a CSF leak. It was not clear to me where this was emanating as this appeared to be on the ventral aspect of the thecal sac and more cranial and remote to where our surgical approach was. I then reached up more cranially and pulled out more purulent material and some disk material. We completed diskectomy at this level. I Valsalva'd the patient twice to 40 mmHg and she continued to have clear fluid emanating from the space , which appeared to be more suspicious for a CSF leak. I could not repair the leak primarily because I did not know where the leak was coming from. At this point I consulted Dr Vallecillo, my partner, who provided an intraoperative consult. We decided placement of a lumbar drain would be appropriate. Once I felt that everything was well decompressed, I irrigated and then closed this surgical wound in multiple layers, including Vicryl sutures for the deep layers and a running nylon stitch for the skin. I then took a large gauge needle and moved cranial to our incision and to approach the spinal canal at the L3-4 level, at which point we placed a lumbar drain at this level. There appeared to be slightly more cloudy fluid from the lumbar drain CSF that was emanating from the drain itself. We secured this to a drainage bag system. The patient's wounds were dressed sterilely. She was then flipped supine onto the transfer cart. She was awakened, extubated, and taken to the recovery room in stable condition. Please note, neuromonitoring improved from the beginning to the end of the case. COMPLICATIONS: A small CSF leak was identified and a lumbar drain placed. /[id number]/MODL MTDD
[2018-02-23] MEDS: oxyCODONE IR 5 MG TAB PO PRN ×2 (11:34→20:44)
[2018-02-23] MEDS: lamoTRIgine 100 MG TAB PO SCH (11:34)
--- NOTE | 2018-02-23 11:50 | HOSPPROG ---
Hospitalist Progress Note Assessment/Plan: Patient is a 57-year-old female with history of depression, anxiety and recent eye surgery. She presented to the emergency room with ongoing back pain for the past couple weeks. 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 She subsequently had a injection yesterday at L4-5 without improvement. Today she went to surgery and underwent a CYNTHIA with lumbar drain placement for a CSF leak identified during surgery. There was possible purulence in the epidural space and the patient was placed on Vancomycin. She was then transferred to ICU post operatively. Reviewed her care with Donte MCLEAN with neurosurgery and Dr Edmond. Appreciate both of their involvement. * Discitis, acute back pain, L4-L5 disc tear -s/p right L4/5 CYNTHIA -had positive CSF leak, concern for infection, blood cx ordered -will need to be in the ICU with a lumbar drain in place -started on vancomycin -dc steroids *pain due to the above -overall pain is well managed when I saw her today -does best with morphine (this is ordered, dc the IV Dilaudid) * depression and anxiety -home medications continued * diarrhea -no further complaints -takes Imodium prn at home *leukocytosis -secondary to steroids *Obesity with a BMI of 36.9 -likely impacting the above -she's motivated to take better care of herself overall *HTN -will hold on her diuretic therapy, will resume Amlodipine *Plan: continue iv fluids since taking in less intake, repeat labs in a.m.; resume Amlodipine Subjective: Misti is not having significant pain lying flat. Objective: Vital Signs Temp Pulse Resp BP Pulse Ox 36.4 C 61 20 152/79 H 98 02/23/18 09:00 02/23/18 11:00 02/23/18 11:00 02/23/18 11:00 02/23/18 11:00 Microbiology 02/23/18 08:16 Gram Stain - Final Vertebral Disc 02/23/18 08:16 Gram Stain - Final Other - Eswab Laboratory Results 02/22/18 04:28 02/22/18 04:28 02/22/18 02/23/18 02/24/18 05:59 05:59 05:59 Intake Total 1400 Output Total 1200 2200 39 Balance 200 -2200 -39 PT 13.6 SEC (12.0-15.0) 02/22/18 04:28 INR 1.02 (0.83-1.16) 02/22/18 04:28 - Physical Exam Constitutional: appears nourished, not in pain, obese Eyes: PERRL Ears, Nose, Mouth, Throat: hearing normal Cardiovascular: regular rate and rhythym Respiratory: no respiratory distress Gastrointestinal: normoactive bowel sounds Genitourinary: reardon in urethra Skin: warm Neurologic: AAOx3 Psychiatric: interacting appropriately ICD10 Worksheet Patient Problems: Problems Problem Status Onset Low back pain Acute Herniated intervertebral disc of lumbar spine Acute CSF leak Acute Lumbar radicular pain Acute
--- NOTE | 2018-02-23 12:08 | GCON ---
[f rep st] CONSULTATION INFECTIOUS DISEASE CONSULTATION DATE OF CONSULTATION: 02/23/2018 Provider requesting consultation is Wilfred Rizzo, and physician, Austin Gusman. REASON FOR CONSULTATION: Diskitis and epidural space infection. HISTORY OF PRESENT ILLNESS: A 57-year-old woman with minimal past medical problems, whose problems date back to February 08, when as a part of her job, she picked up 100 pound dog and strained her back. This patient was initially evaluated by ER then worker's compensation and was started on NSAIDs, lidocaine patches, and Medrol Dosepak. She finished her Dosepak a couple of days prior to admission and had increasing back pain with radiation down her right thigh. Therefore, she presented to the emergency room for further evaluation. She denied any loss of bowel or bladder function, and she had no fevers, chills, or night sweats. After admission, the patient had an non contrasted MRI of her back which showed a right paracentral disk herniation at L4-L5 with annular tear and L5 vertebral body edema. Patient underwent IR steroid injection at this level, but the symptoms were progressive and patient went to the OR today. In the OR, she underwent an CYNTHIA with LD placement for preexisting CSF leak identified during surgery. In addition, there was possible purulence at that site and samples were sent, both from the epidural space and L4-L5 disk, which were positive for GPCs. ID was consulted for management of infectious process and antibiotic management. Postoperatively, patient reports increased back pain and ongoing right groin pain. As above, a lumbar drain was left in place due to CSF leak and this fluid is clear in the drainage bag. PAST MEDICAL HISTORY: Positive for depression and anxiety, hypothyroidism, hypertension, and some macular process. PAST SURGICAL HISTORY: The patient recently had right eye surgery for repair of a tear and a cholecystectomy in 1998. ALLERGIES: iodine, ASA &NSAIDs (urticaria/throat swelling), erythromycin, azithromycin caused diarrhea. 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 She is originally from [place] but moved to [place] 30 years ago. Occasional alcohol and she has multiple dogs. No children. MEDICATIONS: The patient was given perioperative cefazolin and she is on Zyrtec , Flexeril, Valium, Benadryl, Cymbalta 60 mg daily, Neurontin 300 mg p.o. q.8 hours, Dilaudid as needed, lactulose, Lamictal, Synthroid, milk of magnesia, Robaxin, Solu-Medrol 60 mg IV q.6 hours, morphine, Narcan, Zofran, MiraLAX, oxycodone, Senokot. FAMILY HISTORY: Reviewed and noncontributory. REVIEW OF SYSTEMS: A complete 10-point review of systems was performed and is negative except as mentioned in the HPI. PHYSICAL EXAM: VITAL SIGNS: The patient has been afebrile throughout her hospitalization. T-max is 37.3, T current 36.4. Weight is 97 kg. GENERAL: This is a pleasant woman lying flat in bed in mild distress secondary to pain. HEENT: Her pupils are dilated but reactive. No conjunctival hemorrhages. Fair dentition. Dry mucous membranes. NECK: Supple. No lymphadenopathy. CARDIOVASCULAR: Distant heart sounds. Regular rate. No murmur. CHEST: Clear to auscultation bilaterally. ABDOMEN: Obese, soft, nontender. Bowel sounds are present. EXTREMITIES: Patient is able to move both lower extremities bilaterally. She has a lumbar drain in place with clear CSF fluid. She has a peripheral IV in her right antecubital. SKIN: Patient has multiple excoriations of her upper extremity, which she reports is chronic due to her underlying anxiety. LABORATORY: Initial white count 15.6, today 18.3; hematocrit 40; platelets of 442; 88% neutrophils; 8% lymphocytes. INR 1. Creatinine 0.7. Blood cultures were collected today, 02/23/2018, and are pending. OR Gram stain: As per HPI. Imaging: As per HPI. ASSESSMENT AND PLAN: 57-year-old woman who sustained a back injury on February 08 with progressive symptoms. She is admitted to the hospital on the , underwent a steroid injection, and still had progressive symptoms and went to the OR today for management of this, but in the OR unexpected finding of evidence of infection with a positive Gram stain at L4-L5, both with the epidural space and disk. Suspect spontaneous infection of the epidural space of L4-5 and steroid injection had nothing to do with infection. The patient has already undergone debridement and drainage. With Gram-positive cocci on Gram stain, would recommend IV vancomycin until further information. Will load patient with 1.25 g x1, then start the patient on continuous infusion, 35 mg/kg IV continuous infusion, or 3500 mg IV continuous infusion,. Will check a level with a goal between 20 and 30. Would recommend adding CRP and LFTs onto existing labs. Once blood cultures are negative for 48 hours, okay to place PICC line. Already discussed with patient, she will need prolonged IV antibiotic therapy. IF blood cultures are positive would also evaluate for endocarditis, although no peripheral stigmata. /[id number]/MODL MTDD
[2018-02-23] MEDS: D5W IV SCH (12:15)
[2018-02-23] MEDS: VANCOMYCIN IV SCH (12:15)
[2018-02-23] MEDS ORDERED: EUCERIN/HYDROCERIN CREAM 120GM JAR TP PRN (12:40)
[2018-02-23] MEDS: GABAPENTIN 300 MG CAP PO SCH ×2 (13:37→22:15)
[2018-02-23] MEDS: DULoxetine 60 MG CAP PO SCH (13:37)
--- NOTE | 2018-02-23 13:59 | GCON ---
[f rep st] CONSULTATION A PULMONARY/CRITICAL CARE CONSULTATION DATE OF CONSULTATION: 02/23/2018 REFERRING PHYSICIAN: Austin Gusman MD REASON FOR REFERRAL: Evaluation and management of back pain and diskitis. HISTORY OF PRESENT ILLNESS: The patient is a 57-year-old woman who was in her usual state of good he alth when about a month ago, she picked up 100 pounds, again strained her lower back. She was seen i n the emergency department at that time and started on NSAIDs, lidocaine patches, and Medrol. Despit e this therapy, she had increased back pain with radiation down her thigh. She presented to the [facility] on 02/21, with these symptoms. She had an MRI that showed a disk herniation at L4-5 and an cuate lar tear and some vertebral body edema. She underwent an IR steroid injection, but the symptoms pers isted, and she went to the OR this morning. Upon exposure, she was found to have a pre-existing CSF leak with some purulence. A lumbar drain was placed. Postoperatively, the patient reports significa nt back and groin pain. She denies other symptoms of nausea, vomiting, dyspnea, chest pain. PAST MEDICAL HISTORY: 1. Anxiety/depression. 2. Hypothyroid. 3. Hypertension. MEDICATIONS: At time of admission include Flexeril, [place], lamotrigine, levothyroxine, duloxetine, a mlodipine, cetirizine, and Maxzide. ALLERGIES: Aspirin, iodine, and nonsteroidals. 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 She drinks alcohol occasionally. FAMILY HISTORY: Unremarkable. REVIEW OF SYSTEMS: A 10-point review of systems adds nothing to the History of Present Illness. PHYSICAL EXAMINATION: GENERAL: The patient is awake, lying flat in bed, and in moderate pain. SHAMIR L SIGNS: Her blood pressure is 151/78 with a heart rate of 72. She is afebrile. Oxygen saturations are 98% on 2 L. HEENT: Normocephalic and atraumatic. No icterus. NECK: No adenopathy. Trachea is midline. CHEST: Clear to auscultation. CARDIAC: Regular rate and rhythm without murmur. ABDOM EN: Soft, nontender. Bowel sounds are present. EXTREMITIES: No clubbing, cyanosis, or edema. OSVALDO RO: She has symmetric motor strength in all extremities with no gross deficits. LABORATORY/IMAGING DATA: White blood count is 18.9, up from 15.6. Hemoglobin is 13.4. Platelet cou nt is 442. Chemistry group is normal. A C-reactive protein is 190.7. An MRI of the spine from 9 shows right paracentral disk herniation at L4-L5 with an annular tear and some compression deformit y to the superior endplate of L5 with bone marrow edema. There is some left foraminal stenosis at L5 -S1. Images reviewed by me. A Gram stain from today shows gram-positive cocci. ASSESSMENT: Diskitis with epidural space infection. The patient is growing gram-positive cocci. It is unclear if this was a hematogenous spread from another source, perhaps skin from some mild excori ations, or was from another source. The patient had been started empirically on cefazolin, which has now been discontinued, and she has been started on vancomycin. 1. Hypertension. This is likely related to the patient's pain, which is currently suboptimally cont rolled. Additionally, the patient has underlying hypertension for which she takes Maxzide. 2. Continue antibiotics as per Infectious Disease. 3. For pain management the patient will be started on patient-controlled analgesia Dilaudid. Preced ex can be started if she is continuing to have ongoing pain. 4. Will follow her blood pressure for now, possibly instituting oral antihypertensive therapy if she remains hypertensive despite improved pain control. 5. Await cultures. 6. The patient will be in the ICU for at least several days, lying flat due to the placement of a yosvany mbar drain. /[id number]/MODL
[2018-02-23] MEDS ORDERED: ceFAZolin 2 GM/DEXTROSE 100 ML IV ONE (14:00)
[2018-02-23] MEDS: FAMOTIDINE 20 MG TAB PO SCH (20:44)
[2018-02-23] MEDS: SENNOSIDES/DOCUSATE SODIUM TAB PO SCH (20:44)
[2018-02-24 05:30] LABS: PLATELET COUNT 415 10^3/uL (150-400)
[2018-02-24] MEDS: NS 1,000 ML IV SCH (05:40)
[2018-02-24] MEDS: GABAPENTIN 300 MG CAP PO SCH ×3 (05:41→22:09)
[2018-02-24] MEDS: oxyCODONE IR 5 MG TAB PO PRN ×4 (05:41→22:08)
[2018-02-24] MEDS: LEVOTHYROXINE 200 MCG TAB PO SCH (05:41)
[2018-02-24] MEDS: ACETAMINOPHEN 500 MG TAB PO SCH ×3 (06:00→22:09)
--- NOTE | 2018-02-24 08:07 | NEUSURGPN ---
Assessment/Plan: A/P: 57 yo female that is admitted to IM with lower back pain and RLE pain that has a right sided HNP at L4/5. Pt is s/p right L4/5 CYNTHIA with LD placement. CSF leak discovered during exposure prior to any contact with Dura by Dr Gusman (please see op note for details and further description). ?injection related or disc herniation related. Cloudy dc noted in CSF and will test for infection vs steroid from [facility]. BC x 2 ordered -Pain management -Send new CSF cultures today -Wound with gram + cocci - appreciate ID following -Blood cx pending -Continue lying flat/LD drain at 10-15cc/hr -Ruiz d/t immobility -all questions and concerns answered -d/w Dr Gusman. Pt seen by Dr Gusman as well this am. Subjective: Pt resting in bed, pain well managed and doing ok Objective: AAOx3 NAD VSS MAEx4 Motor 5/[address] +LT Urinary Catheter in Place: Yes Urinary Catheter Indication: Surgical Requirement Catheter Insertion Date: 02/23/18 - Physician Discussed Patient with : Naseem Patient Seen by : Naseem Neurosurgery Physical Exam - Vitals, I&O, Labs I and O 02/23/18 02/24/18 02/25/18 05:59 05:59 05:59 Intake Total 1996 Output Total 2199 2449 Balance -2200 -452 Weight 97.522 kg Intake: Oral (ml) 400 IV Infused (ml) 1597 Ns 1,000 ml @ 40 mls/hr 450 IV CONT ARAVIND Rx#: [id number] Vancomycin 3.5 gm In D5w 1147 500 ml @ 20.833 mls/hr IV DAILY@1200 [facility] Rx#: [id number] Output: Urine (ml) 2200 2300 Catheter 2300 Toilet 2200 CSF Drainage Amount 149 Lumbar Drain 149 Other: Intake Quantity Yes Sufficient Number of Voids Toilet 1 Microbiology 02/23/18 08:16 Mycobacterial Smear ([place]) - Final Vertebral Disc 02/23/18 08:16 Gram Stain - Final Vertebral Disc 02/23/18 08:16 Gram Stain - Final Other - Eswab Vital Signs Temp Pulse Resp BP Pulse Ox 36.8 C 86 16 156/74 H 98 02/24/18 05:00 02/24/18 06:00 02/24/18 06:00 02/24/18 06:00 02/24/18 06:00 Laboratory Results 02/24/18 05:00 02/24/18 05:00 ICD10 Worksheet Patient Problems: Problems Problem Status Onset CSF leak Acute Herniated intervertebral disc of lumbar spine Acute Low back pain Acute Lumbar radicular pain Acute
[2018-02-24] MEDS: lamoTRIgine 100 MG TAB PO SCH (08:44)
[2018-02-24] MEDS: DULoxetine 60 MG CAP PO SCH (08:44)
[2018-02-24] MEDS: FAMOTIDINE 20 MG TAB PO SCH ×2 (08:44→21:01)
[2018-02-24] MEDS: CYCLOBENZAPRINE 10 MG TAB PO SCH ×3 (08:45→22:09)
[2018-02-24] MEDS: CETIRIZINE 10 MG TAB PO SCH (08:45)
[2018-02-24] MEDS: SENNOSIDES/DOCUSATE SODIUM TAB PO SCH ×2 (08:45→21:01)
[2018-02-24] MEDS: amLODIPine BESYLATE 5 MG TAB PO SCH (08:45)
--- NOTE | 2018-02-24 11:54 | PCMIDPN ---
Assessment/Plan: # MSSA epidural abscess and L4-5 discitis s/p right right-sided L4-L5 tika laminotomy with mesial facetectomy and epidural abscess evacuation with LD placement following back injury. Source of infection of unclear, but patient with chronic skin trauma. Unlikely introduced by spinal injection. Initial MRI was performed w/o contrast therefore epidural abscess may not have been visible. CRP expectedly elevated at 190 --vancomycin level good and Cr normal today, but now with MSSA. Will switch to nafcillin 2gm IV [id number] for COPY HOLDER penetration. Tiny elevation ALT, will monitor when on nafcillin --PICC line when blood cultures negative 48hours Meds Vancomycin 3.5 gm IV continuous infusion #1 Microbiology 02/23/18 08:16 Vertebral Disc Staphylococcus Aureus 02/23/18 08:16 Other - Eswab of epidural space Staphylococcus Aureus 02/23/18 blood cx (2) pending Subjective: patients back pain is stable worried about constipation Objective: Vital Signs Temp Pulse Resp BP Pulse Ox 36.7 C 68 11 L 110/54 L 99 02/24/18 08:00 02/24/18 11:00 02/24/18 11:00 02/24/18 11:00 02/24/18 11:00 Microbiology 02/23/18 08:16 Gram Stain - Final Other - Eswab 02/23/18 08:16 Gram Stain - Final Vertebral Disc 02/24/18 08:17 Gram Stain - Final Cerebral Spinal Fluid 02/23/18 08:16 Mycobacterial Smear ([place]) - Final Vertebral Disc Laboratory Results 02/24/18 05:00 02/24/18 05:00 02/23/18 02/24/18 02/25/18 05:59 05:59 05:59 Intake Total 1996 Output Total 2200 2449 89 Balance -2200 -452 -89 C-Reactive Protein 190.7 mg/L (<10.0) H 02/23/18 04:28 - Physical Exam General Appearance: alert, no apparent distress, obese EENT: No scleral icterus, No thrush Respiratory: lungs clear, No accessory muscle use Neck: supple Cardiac/Chest: regular rate, rhythm Abdomen: non-tender, soft Skin: No rash Neuro/Psych: alert, normal mood/affect, oriented x 3 - Time Spent With Patient Time Spent with Patient: greater than 35 minutes (reviewed lab results and likely need for 8 weeks of IV therapy, PICC line risks and benefits) Time Spent with Patient: Greater than 35 minutes spent on this patients care, greater than 50% of time spent counseling, educating, and coordinating care regarding the above mentioned plan. ICD10 Worksheet Patient Problems: Problems Problem Status Onset CSF leak Acute Herniated intervertebral disc of lumbar spine Acute Low back pain Acute Lumbar radicular pain Acute
[2018-02-24] MEDS: VANCOMYCIN IV SCH (11:55)
[2018-02-24] MEDS: D5W IV SCH (11:55)
[2018-02-24] MEDS ORDERED: ALTEPLASE 2 MG VIAL IVP PRN (14:13)
--- NOTE | 2018-02-24 15:02 | HOSPPROG ---
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 Old records reviewed/summarized as above. Care plan reviewed with Dr. Vitale. High risk requiring ICU level care Subjective: no significant overnight events, patient somnolent this am but apin controlled Objective: Vital Signs Temp Pulse Resp BP Pulse Ox 36.7 C 72 17 140/69 H 97 02/24/18 12:00 02/24/18 13:00 02/24/18 13:00 02/24/18 13:00 02/24/18 13:00 Microbiology 02/23/18 08:16 Gram Stain - Final Vertebral Disc 02/23/18 08:16 Mycobacterial Smear ([place]) - Final Vertebral Disc 02/23/18 08:16 Gram Stain - Final Other - Eswab 02/24/18 08:17 Gram Stain - Final Cerebral Spinal Fluid Laboratory Results 02/24/18 05:00 02/24/18 05:00 02/23/18 02/24/18 02/25/18 05:59 05:59 05:59 Intake Total 1997 Output Total 2200 2449 1063 Balance -2200 -452 -1063 PT 13.6 SEC (12.0-15.0) 02/22/18 04:28 INR 1.02 (0.83-1.16) 02/22/18 04:28 somnolet arousable nad anicteric op clear rrr no rg cta b soft nt nd no cce warm dry well perfused somnolent ICD10 Worksheet Patient Problems: Problems Problem Status Onset CSF leak Acute Herniated intervertebral disc of lumbar spine Acute Low back pain Acute Lumbar radicular pain Acute
[2018-02-24] MEDS: DIAZEPAM 5 MG TAB PO PRN ×2 (15:26→22:09)
--- NOTE | 2018-02-24 16:27 | PDINTPN ---
Director Of Oncology Progress Note Assessment/Plan: Assessment: L4-5 discitis/epidural infection. Culture now with MSSA. Changed to nafcillin. 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 WBC falling, afebrile. Lumbar drain in place HTN: Hithgher 02/23? due to pain. Improved. On amlodipine, which she's on as an outpatient. Hyperkalemia:Mild Elevated AST. Mild Plan: Follow CBC, LFTs, K+. Pain control with dilaudid TOY MECHANIC, Precedex PRN. Continue lumbar drain per NS. 02/24/18 16:27 Objective: Vital Signs Temp Pulse Resp BP Pulse Ox 36.7 C 75 20 127/64 H 96 02/24/18 12:00 02/24/18 15:00 02/24/18 15:00 02/24/18 15:00 02/24/18 15:00 Microbiology 02/23/18 08:16 Gram Stain - Final Vertebral Disc 02/23/18 08:16 Mycobacterial Smear (BERNADETTE) - Final Vertebral Disc 02/23/18 08:16 Gram Stain - Final Other - Eswab 02/24/18 08:17 Gram Stain - Final Cerebral Spinal Fluid Laboratory Results 02/24/18 05:00 02/24/18 05:00 02/23/18 02/24/18 02/25/18 05:59 05:59 05:59 Intake Total 1996 Output Total 2204 2440 1089 Balance -2200 -452 -1089 PT 13.6 SEC (12.0-15.0) 02/22/18 04:28 INR 1.02 (0.83-1.16) 02/22/18 04:28 ICD10 Worksheet Patient Problems: Problems Problem Status Onset CSF leak Acute Herniated intervertebral disc of lumbar spine Acute Low back pain Acute Lumbar radicular pain Acute
--- NOTE | 2018-02-24 16:46 | ASMTCMCOM ---
CM Note CM Note Notes: Met with patient who is distressed about her circumstances. She states she has worked for [employer] for 16 years and they have not supported her getting treatment. Patient is worried about if her FMLA has been initiated and whether or not she will get the paid leave she is entitled to. Patient signed a release so CM can follow up with Ruth Ann. Patient also expressed concerns about worker's comp paying for her medical bills, since the injury happened at work. CM will request financial services visit with patient tomorrow to answer her questions. Patient states she does not have any family here. Both of her parents are . Patient has 3 sisters but is estranged from 2 of them. She has created distance as a result of one sister being a drug addict and one sister taking all of her father's estate instead of distributing it according to his wishes. The remaining sister lives in [place] and is 16 years older than she is. They are not close but she may contact her in her current circumstances. Patient does need emotional support and assist with whatever we might be able to help with. Patient did say she thinks her cat will be ok until Wednesday when her friend returns. Becca will be able to feed and check on the cat at that time. Patient spoke to her vet about it and patient has left enough food and water out to last the pet until Wednesday. CM will follow. Date Signed: 02/24/2018 04:46 PM Electronically Signed By:Naomi Johnson LCSW
[2018-02-24] MEDS: NAFCILLIN SODIUM 2 GM in D5W 100 ML IV SCH ×2 (18:25→22:07)
[2018-02-25] MEDS: NAFCILLIN SODIUM 2 GM in D5W 100 ML IV SCH ×6 (02:30→21:49)
[2018-02-25] MEDS: GABAPENTIN 300 MG CAP PO SCH ×3 (05:41→21:03)
[2018-02-25] MEDS: LEVOTHYROXINE 200 MCG TAB PO SCH (05:41)
[2018-02-25] MEDS: ACETAMINOPHEN 500 MG TAB PO SCH ×3 (06:00→22:17)
[2018-02-25] MEDS: DULoxetine 60 MG CAP PO SCH (08:23)
[2018-02-25] MEDS: oxyCODONE IR 5 MG TAB PO PRN ×4 (08:23→22:17)
[2018-02-25] MEDS: lamoTRIgine 100 MG TAB PO SCH (08:23)
[2018-02-25] MEDS: FAMOTIDINE 20 MG TAB PO SCH ×2 (08:23→21:03)
[2018-02-25] MEDS: CETIRIZINE 10 MG TAB PO SCH (08:23)
[2018-02-25] MEDS: SENNOSIDES/DOCUSATE SODIUM TAB PO SCH ×2 (08:23→21:03)
[2018-02-25] MEDS: DIAZEPAM 5 MG TAB PO PRN ×3 (08:23→22:16)
[2018-02-25] MEDS: amLODIPine BESYLATE 5 MG TAB PO SCH (08:24)
[2018-02-25] MEDS: CYCLOBENZAPRINE 10 MG TAB PO SCH ×3 (08:26→21:03)
--- NOTE | 2018-02-25 08:59 | NEUSURGPN ---
Assessment/Plan: A/P: 57 yo female that is admitted to IM with lower back pain and RLE pain that has a right sided HNP at L4/5. Pt is s/p right L4/5 CYNTHIA with LD placement. CSF leak discovered during exposure prior to any contact with Dura by Dr Gusman (please see op note for details and further description). ?injection related or disc herniation related. Cloudy dc noted in CSF and will test for infection vs steroid from [facility]. BC x 2 ordered -Pain management -CSF cultures from 02/24 are + for gram + cocci. Will send a new sample tomorrow for culture. -Wound with gram + cocci - appreciate ID following -Blood cx + for staph -Continue lying flat/LD drain at 10-15cc/hr -Ruiz d/t immobility -Call NS with any issues -d/w Dr Gusman. Subjective: Pt resting in bed, pain well managed at this time. C/o right groin pain that comes/goes. Objective: AAOx3 NAD VSS MAEx4 Motor 5/5 BLE Incision dressed CDI and LD site CDI straw colored fluid in LD bag Urinary Catheter in Place: Yes Urinary Catheter Indication: Surgical Requirement Catheter Insertion Date: 02/23/18 - Physician Discussed Patient with : Naseem Neurosurgery Physical Exam - Vitals, I&O, Labs I and O 02/24/18 02/25/18 02/26/18 05:59 05:59 05:59 Intake Total 1996 3517 Output Total 6 4213 27 Balance -452 -695 -27 Weight 97.522 kg Intake: Oral (ml) 400 2050 IV Infused (ml) 1597 1468 Ns 1,000 ml @ 40 mls/hr 450 1253 IV CONT [facility] Rx#: [id number] Vancomycin 3.5 gm In D5w 1147 215 500 ml @ 20.833 mls/hr IV DAILY@1200 [facility] Rx#: [id number] Output: Urine (ml) 2300 3900 Catheter 2300 3900 CSF Drainage Amount 149 313 27 Lumbar Drain 149 313 27 Other: Intake Quantity Yes Sufficient Microbiology 02/23/18 08:16 Gram Stain - Final Vertebral Disc 02/23/18 10:50 Blood Panel (PCR) - Final Blood S.aureus Methicillin Suscept. 02/23/18 08:16 Mycobacterial Smear (BERNA[place]TE) - Final Vertebral Disc 02/23/18 08:16 Gram Stain - Final Other - Eswab 02/24/18 08:17 Gram Stain - Final Cerebral Spinal Fluid Vital Signs Temp Pulse Resp BP Pulse Ox 37.3 C 79 16 116/58 L 94 02/25/18 08:00 02/25/18 08:00 02/25/18 08:00 02/25/18 08:24 02/25/18 08:00 Laboratory Results 02/24/18 05:00 02/24/18 05:00 ICD10 Worksheet Patient Problems: Problems Problem Status Onset CSF leak Acute Herniated intervertebral disc of lumbar spine Acute Low back pain Acute Lumbar radicular pain Acute
--- NOTE | 2018-02-25 11:38 | PDINTPN ---
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 Culture now with MSSA, growing from wound, blood, and CSF. On nafcillin. 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 WBC falling, afebrile. Lumbar drain in place HTN: Now normotensive on amlodipine, which she's on as an outpatient. Hyperkalemia:Mild Elevated AST. Mild Plan: Follow CBC, LFTs, K+. Pain control with dilaudid PUBLIC AREA ATTENDANT, Precedex PRN. Continue lumbar drain per NS. 02/25/18 11:38 Subjective: Slept well last night after being given medications for leg pain. Pain control improved today. Eating OK. Objective: Vital Signs Temp Pulse Resp BP Pulse Ox 37.3 C 69 10 L 110/55 L 94 02/25/18 08:00 02/25/18 11:00 02/25/18 11:00 02/25/18 11:00 02/25/18 11:00 Microbiology 02/23/18 08:16 Gram Stain - Final Other - Eswab 02/23/18 08:16 Gram Stain - Final Vertebral Disc 02/24/18 08:17 Gram Stain - Final Cerebral Spinal Fluid 02/23/18 10:50 Blood Panel (PCR) - Final Blood S.aureus Methicillin Suscept. 02/23/18 08:16 Mycobacterial Smear (BERNADETTE) - Final Vertebral Disc Laboratory Results 02/24/18 05:00 02/24/18 05:00 02/24/18 02/25/18 02/26/18 05:59 05:59 05:59 Intake Total 1996 2064 1000 Output Total 7466 4217 960 Balance -452 -695 40 PT 13.6 SEC (12.0-15.0) 02/22/18 04:28 INR 1.02 (0.83-1.16) 02/22/18 04:28 Physical Exam - Physical Exam General Appearance: alert, no apparent distress EENT: normal ENT inspection Neck: normal inspection Respiratory: lungs clear, normal breath sounds Cardiac/Chest: regular rate, rhythm, No edema Abdomen: normal bowel sounds, non-tender Skin: normal color, warm/dry Extremities: normal inspection Neuro/Psych: alert, normal mood/affect, oriented x 3 ICD10 Worksheet Patient Problems: Problems Problem Status Onset CSF leak Acute Herniated intervertebral disc of lumbar spine Acute Low back pain Acute Lumbar radicular pain Acute
[2018-02-25 12:11] LABS: PLATELET COUNT 387 10^3/uL (150-400)
--- NOTE | 2018-02-25 12:32 | ECHO ---
[email or web address] [address] [address] Main: [phone] Fax: Transthoracic Echocardiogram Name: RICK SYKES MR#: [id number] Study Date: 02/25/2018 Study Time: 08:21 AM Date of : 1960 Age: 57 year(s) Height: 162.6 cm (64 in.) Weight: 97.52 kg (215 lb.) BSA: 2.02 m2 Gender: Female Examination: Echo Indication: MSSA Bacteremia Image Quality: Contrast: Requested by: Petra Edmond BP: 116 mmHg/58 mmHg Heart Rate: Rhythm: Normal sinus rhythm Indication: MSSA Bacteremia Procedure Staff Director Translation: Moe Cee RDCS Reading Physician: Rosas Davidson MD Requesting Provider: Measurements: Chambers Valvular Assessment AV/MV Valvular Assessment TV/PV Normal Normal Normal Name Value Range Name Value Range Name Value Range Ao Dasha (MM): 3.0 cm (2.2 cm-3.7 AV Vmax: 1.56 m/s (1 m/s-1.7 PV Vmax: 1.15 m/s (0.6 m/s-0.9 cm) m/s) m/s) IVSd (2D): 1.0 cm (0.6 cm-1.1 AV maxP mmHg ( - ) PV PGmax: 5 mmHg ( - ) cm) LVOT Vmax: 1.15 m/s (0.7 m/s-1.1 LVDd (2D): 4.9 cm (3.9 cm-5.3 m/s) cm) AR (PHT): 468 ms ( - ) LVDs (2D): 3.0 cm (2.1 cm-4 MV E Vmax: 0.93 m/s ( - ) cm) MV A Vmax: 1.24 m/s ( - ) LVPWd (2D): 1.1 cm ( - ) MV E/A: 0.75 ( - ) LVEF (2D): 69 (>=54 %) Continued Measurements: Chambers Valvular Assessment AV/MV Name Value Name Value LADs Lon.2 cm MV E' Septal: 0.06 m/s LA Area: 16.2 cm2 MV E/E' Septal: 15.70 MV E/E' Lateral: 15.70 AR Vmax: 4.14 cm/s Findings: Left Ventricle: Normal size left ventricle. No LV hypertrophy. Normal global systolic LV function. EF is 69 %. No regional wall motion abnormality. Diastolic dysfunction is present. . Right Ventricle: Patient: RICK SYKES Study Date: 02/25/2018 Page 1 of 2 08:21 AM Normal size right ventricle. Normal RV function. Left Atrium: The left atrium is normal in size. Right Atrium: The right atrium is normal in size. Mitral Valve: The mitral valve is normal in appearance and function. Trivial mitral valve regurgitation. There is no mitral valve vegetation. Aortic Valve: The aortic valve is tri-leaflet. Trivial to mild aortic valve regurgitation. There is no aortic valve vegetation. Tricuspid Valve: The tricuspid valve appears normal. Trivial tricuspid valve regurgitation. The pulmonary artery pressure is normal. Pulmonic Valve: The pulmonic valve is normal in appearance and function. Aorta: The aorta is normal. Pericardium: Trivial pericardial effusion. Exam Comments: There is no obvious valve vegetation noted.. (No Signature Object) Patient: RICK SYKES Study Date: 02/25/2018 Page 2 of 2 08:21 AM [id number]
--- NOTE | 2018-02-25 14:26 | PCMIDPN ---
Assessment/Plan: Assessment: MSSA bacteremia with epidural abscess. Patient is status post epidural abscess debridement. Currently she is in good spirits and resting comfortably in her hospital bed. Awaiting PICC line placement to redraw blood cultures. In the meantime patient will continue on IV nafcillin. Will continue to watch the creatinine levels as we treat. Plan: 1. Continue IV nafcillin at present dose. 2. Monitor laboratories. 3. Follow up on blood cultures to be drawn later today. 02/25/18 14:24 Subjective: Patient is resting in her hospital bed. She has no new complaints. Her pain is well controlled. She denies any fevers or chills. Objective: Nafcillin # 1 Vital Signs Temp Pulse Resp BP Pulse Ox 37.0 C 78 11 L 122/66 H 94 02/25/18 12:00 02/25/18 12:00 02/25/18 12:00 02/25/18 12:00 02/25/18 12:00 Microbiology 02/24/18 08:17 Gram Stain - Final Cerebral Spinal Fluid 02/23/18 08:16 Gram Stain - Final Other - Eswab 02/23/18 08:16 Gram Stain - Final Vertebral Disc 02/23/18 10:50 Blood Panel (PCR) - Final Blood S.aureus Methicillin Suscept. 02/23/18 08:16 Mycobacterial Smear (BERNAEDTTE) - Final Vertebral Disc Laboratory Results 02/25/18 12:00 02/25/18 12:00 02/24/18 02/25/18 02/26/18 05:59 05:59 05:59 Intake Total 1996 3517 1000 Output Total 5259 4213 973 [facility]577 -057 27 C-Reactive Protein 190.7 mg/L (<10.0) H 02/23/18 04:28 - Physical Exam General Appearance: WD/WN, alert, no apparent distress, non-toxic Respiratory: lungs clear, normal breath sounds, No respiratory distress Cardiac/Chest: regular rate, rhythm, No tachycardia Skin: normal color, warm/dry, rash (Chronic upper extremities) Neuro/Psych: alert, normal mood/affect, oriented x 3 ICD10 Worksheet Patient Problems: Problems Problem Status Onset CSF leak Acute Herniated intervertebral disc of lumbar spine Acute Low back pain Acute Lumbar radicular pain Acute
[2018-02-25] MEDS: METHOCARBAMOL 750 MG TAB PO PRN (14:47)
--- NOTE | 2018-02-25 15:59 | ASMTCMCOM ---
CM Note CM Note Notes: Met with patient and gave her the name and number of the worker's comp field automobile adjuster who can confirm payment for her medical bills. (Breanna [phone]) Awaiting a call back from [employer] regarding confirmation of patient's FMLA. Patient got a PICC line today. D/C plan TBD. CM will follow. Date Signed: 02/25/2018 03:58 PM Electronically Signed By:Naomi Johnson LCSW
--- NOTE | 2018-02-25 16:08 | HOSPPROG ---
Hospitalist Progress Note Assessment/Plan: Patient is a 57-year-old female with history of depression, anxiety and recent eye surgery presenting with acute back pain and found to have csf leak, discitis # Discitis, L4-L5 disc tear, MSSA epidural abscess -s/p right L4/5 CYNTHIA with spontaneous csf leak now with lumbar drain in place -appreciate ID input, continue nafcillin -source of infection unclear, echo without vegetation -pain control improved and patient more alert today # MSSA bacteremia: as above, cultures positive from 02/23, repeat from 02/25 with ngtd # depression and anxiety -home medications continued # diarrhea -no further complaints -takes Imodium prn at home # leukocytosis -secondary to steroids and acute infection, stable # Obesity with a BMI of 36.9 -likely impacting the above -she's motivated to take better care of herself overall # HTN - Amlodipine, reasonably well controlled IP status Care plan reviewed with Dr. Vitale. High risk requiring ICU level care Subjective: no significant overnight events, patient currently feeling better, pain is controlled, doing well with the lying flat Objective: Vital Signs Temp Pulse Resp BP Pulse Ox 37.0 C 88 22 H 127/65 H 98 02/25/18 12:00 02/25/18 15:00 02/25/18 14:00 02/25/18 14:00 02/25/18 14:00 Microbiology 02/24/18 08:17 Gram Stain - Final Cerebral Spinal Fluid 02/23/18 08:16 Gram Stain - Final Other - Eswab 02/23/18 08:16 Gram Stain - Final Vertebral Disc 02/23/18 10:50 Blood Panel (PCR) - Final Blood S.aureus Methicillin Suscept. 02/23/18 08:16 Mycobacterial Smear (BERNADETTE) - Final Vertebral Disc Laboratory Results 02/25/18 12:00 02/25/18 12:00 02/24/18 02/25/18 02/26/18 05:59 05:59 05:59 Intake Total 1996 3518 1000 Output Total 8662 4213 1006 Balance -452 -695 -6 PT 13.6 SEC (12.0-15.0) 02/22/18 04:28 INR 1.02 (0.83-1.16) 02/22/18 04:28 awake alert nad anicteric op clear rrr no rg cta b soft nt nd no cce warm dry well perfused ICD10 Worksheet Patient Problems: Problems Problem Status Onset CSF leak Acute Herniated intervertebral disc of lumbar spine Acute Low back pain Acute Lumbar radicular pain Acute
[2018-02-26] MEDS: METHOCARBAMOL 750 MG TAB PO PRN (02:15)
[2018-02-26] MEDS: NAFCILLIN SODIUM 2 GM in D5W 100 ML IV SCH ×6 (02:15→21:15)
[2018-02-26] MEDS: oxyCODONE IR 5 MG TAB PO PRN ×4 (02:15→18:38)
[2018-02-26] MEDS: ACETAMINOPHEN 500 MG TAB PO SCH ×3 (06:20→22:28)
[2018-02-26] MEDS: LEVOTHYROXINE 200 MCG TAB PO SCH (06:20)
[2018-02-26] MEDS: GABAPENTIN 300 MG CAP PO SCH (06:21)
--- NOTE | 2018-02-26 07:36 | NEUSURGPN ---
Assessment/Plan: A/P: 57 yo female that is admitted to IM with lower back pain and RLE pain that has a right sided HNP at L4/5. Pt is s/p right L4/5 CYNTHIA with LD placement. CSF leak discovered during exposure prior to any contact with Dura by Dr Gusman (please see op note for details and further description). -Pain management - will increase gabapentin for right groin pain. resume precedex -CSF cultures from today + for gram + cocci. Will check cell count. -MRI L spine w/wo ordered for Wednesday per Dr Gusman -Wound with gram + cocci - appreciate ID following -Blood cx + for staph, cultures taken yesterday are still pending -Continue lying flat/LD drain at 10-15cc/hr -Ruiz d/t immobility -Call NS with any issues -d/w Dr Gusman. Subjective: Pt resting in bed, pain currently well managed Objective: AAOx3 NAD VSS MAEx4 Motor 5/5 BLE +LT Incisoin dressed cdi LD with straw colored drainage in bag Urinary Catheter in Place: Yes Urinary Catheter Indication: Surgical Requirement Catheter Insertion Date: 02/23/18 - Physician Discussed Patient with : Naseem Neurosurgery Physical Exam - Vitals, I&O, Labs I and O 02/25/18 02/26/18 02/27/18 05:59 05:59 05:59 Intake Total 3518 3692 Output Total 4216 4589 14 Balance -695 -897 -14 Intake: Oral (ml) 2050 3000 IV Intake (ml) 492 IV Infused (ml) 1468 200 Nafcillin Sodium 2 gm In 200 D5w 100 ml @ 100 mls/hr IV Q4HRS [facility] Rx#: [id number] Ns 1,000 ml @ 40 mls/hr 1253 IV CONT ARAVIND Rx#: [id number] Vancomycin 3.5 gm In D5w 215 500 ml @ 20.833 mls/hr IV DAILY@1200 [facility] Rx#: [id number] Output: Urine (ml) 3900 4300 Catheter 3900 4300 CSF Drainage Amount 313 289 14 Lumbar Drain 313 289 14 Other: Intake Quantity Yes Sufficient Microbiology 02/26/18 06:30 Gram Stain - Final Cerebral Spinal Fluid 02/24/18 08:17 Gram Stain - Final Cerebral Spinal Fluid 02/23/18 08:16 Gram Stain - Final Other - Eswab 02/23/18 08:16 Gram Stain - Final Vertebral Disc 02/23/18 10:50 Blood Panel (PCR) - Final Blood S.aureus Methicillin Suscept. Vital Signs Temp Pulse Resp BP Pulse Ox 37.2 C 70 20 151/78 H 100 02/26/18 04:00 02/26/18 06:00 02/26/18 06:00 02/26/18 06:00 02/26/18 06:00 Laboratory Results 02/25/18 12:00 02/25/18 12:00 ICD10 Worksheet Patient Problems: Problems Problem Status Onset CSF leak Acute Herniated intervertebral disc of lumbar spine Acute Low back pain Acute Lumbar radicular pain Acute
[2018-02-26] MEDS ORDERED: DEXMEDETOMIDINE HCL 400 MCG in NS 100 ML IV SCH (09:00)
[2018-02-26] MEDS: FAMOTIDINE 20 MG TAB PO SCH ×2 (09:13→21:13)
[2018-02-26] MEDS: CETIRIZINE 10 MG TAB PO SCH (09:13)
[2018-02-26] MEDS: DULoxetine 60 MG CAP PO SCH (09:13)
[2018-02-26] MEDS: lamoTRIgine 100 MG TAB PO SCH (09:13)
[2018-02-26] MEDS: GABAPENTIN 400 MG CAP PO SCH ×3 (09:13→21:14)
[2018-02-26] MEDS: amLODIPine BESYLATE 5 MG TAB PO SCH (09:14)
[2018-02-26] MEDS: CYCLOBENZAPRINE 10 MG TAB PO SCH ×3 (09:14→21:14)
[2018-02-26] MEDS: SENNOSIDES/DOCUSATE SODIUM TAB PO SCH ×2 (09:14→21:13)
--- NOTE | 2018-02-26 10:02 | HOSPPROG ---
Hospitalist Progress Note Assessment/Plan: #MSSA bacteremia with epidural abscess -LD drain in place; must be flat until it comes out -blood culture 02/25 NGTD -nafcillin gtt #Right groin pain: increase gabapentin, valium. Spoke with NSGY and pain not c/ w level of herniation. Check MRI #Depression/anxiety: cont home meds #Constipation: no BM since Wednesday, bowel regimen #Obesity #HTN: home meds #Leukocytosis: trending down #Diet: regular #DVT ppx: SCDs #Disp:cont inpatient admission for lumbar drain, IV abx Subjective: sharp 10/10 right groin Objective: Vital Signs Temp Pulse Resp BP Pulse Ox 36.4 C 80 21 H 149/75 H 100 02/26/18 07:00 02/26/18 09:00 02/26/18 09:00 02/26/18 09:14 02/26/18 09:00 Microbiology 02/24/18 08:17 Gram Stain - Final Cerebral Spinal Fluid 02/23/18 08:16 Gram Stain - Final Vertebral Disc 02/26/18 06:30 Gram Stain - Final Cerebral Spinal Fluid 02/23/18 08:16 Gram Stain - Final Other - Eswab 02/23/18 10:50 Blood Panel (PCR) - Final Blood S.aureus Methicillin Suscept. Laboratory Results 02/25/18 12:00 02/25/18 12:00 02/25/18 02/26/18 02/27/18 05:59 05:59 05:59 Intake Total 3518 3692 Output Total 4213 4589 54 Balance -695 -897 -54 PT 13.6 SEC (12.0-15.0) 02/22/18 04:28 INR 1.02 (0.83-1.16) 02/22/18 04:28 - Time Spent With Patient Time Spent with Patient: greater than 35 minutes Time Spent with Patient: Greater than 35 minutes spent on this patients care, greater than 50% of time spent counseling, educating, and coordinating care regarding the above mentioned plan. - Physical Exam Constitutional: uncomfortable Eyes: PERRL Ears, Nose, Mouth, Throat: moist mucous membranes, hearing normal Cardiovascular: regular rate and rhythym Gastrointestinal: normoactive bowel sounds Genitourinary: reardon in urethra Skin: warm Musculoskeletal: full muscle strength Neurologic: AAOx3, CN II-XII Intact Psychiatric: interacting appropriately ICD10 Worksheet Patient Problems: Problems Problem Status Onset CSF leak Acute Herniated intervertebral disc of lumbar spine Acute Low back pain Acute Lumbar radicular pain Acute
[2018-02-26] MEDS: ENOXAPARIN 40 MG/0.4 ML SYR SC SCH (12:03)
--- NOTE | 2018-02-26 12:16 | PCMIDPN ---
Assessment/Plan: Assessment: MSSA bacteremia with epidural abscess. Patient is status post epidural abscess debridement. She is being managed on IV nafcillin and appears to be tolerating the antibiotic without clinical issue. No labs available from today at present. Requested that a CBC and chemistry panel be sent presently. Plan: 1. Continue IV nafcillin at present dose. 2. Monitor laboratories. 3. Follow up on blood cultures. 02/25/18 14:24 02/26/18 12:10 Subjective: Patient is resting comfortably in her ICU bed. She relates that she is able to roll over without significant discomfort which is an improvement. She continues to have right groin pain which seems to be shooting down her right leg. No fevers or chills. Objective: Nafcillin # 2 Vital Signs Temp Pulse Resp BP Pulse Ox 36.6 C 69 11 L 102/64 98 02/26/18 12:00 02/26/18 12:00 02/26/18 12:00 02/26/18 12:00 02/26/18 12:00 Microbiology 02/24/18 08:17 Gram Stain - Final Cerebral Spinal Fluid 02/23/18 08:16 Gram Stain - Final Other - Eswab 02/23/18 08:16 Gram Stain - Final Vertebral Disc 02/23/18 10:50 Blood Panel (PCR) - Final Blood S.aureus Methicillin Suscept. 02/26/18 06:30 Gram Stain - Final Cerebral Spinal Fluid Laboratory Results 02/25/18 12:00 02/25/18 12:00 02/25/18 02/26/18 02/27/18 05:59 05:59 05:59 Intake Total 3514 9062 Output Total 1241 4586 87 Balance -695 -897 -87 C-Reactive Protein 190.7 mg/L (<10.0) H 02/23/18 04:28 - Physical Exam General Appearance: WD/WN, alert, no apparent distress, non-toxic Respiratory: lungs clear, normal breath sounds, No respiratory distress Cardiac/Chest: regular rate, rhythm, No tachycardia, No systolic murmur, No irregularly irregular Extremities: non-tender, normal inspection Skin: normal color, warm/dry, No rash Neuro/Psych: alert, normal mood/affect, oriented x 3 ICD10 Worksheet Patient Problems: Problems Problem Status Onset CSF leak Acute Herniated intervertebral disc of lumbar spine Acute Low back pain Acute Lumbar radicular pain Acute
--- NOTE | 2018-02-26 12:25 | PDINTPN ---
Manager Gyn Progress Note Assessment/Plan: Assessment: L4-5 discitis/epidural infection. Culture now with MSSA, growing from wound, blood, and CSF. Repeat blood Cx and CSF Pending. On nafcillin. WBC falling, afebrile. Lumbar drain in place HTN: Now normotensive on amlodipine, which she's on as an outpatient. Hyperkalemia: Normalized Elevated ALT. Mild Plan: Follow CBC, LFTs. Pain control with PRN narcotics PO and IV. Precedex and night PRN. Continue lumbar drain/lay flat per NS. 02/26/18 12:26 Subjective: Still with waxing and waning groin-leg pain, but controlled with narcotics PO and IV PRN. Appetite fairly good. Objective: Vital Signs Temp Pulse Resp BP Pulse Ox 36.6 C 69 11 L 102/64 98 02/26/18 12:00 02/26/18 12:00 02/26/18 12:00 02/26/18 12:00 02/26/18 12:00 Microbiology 02/24/18 08:17 Gram Stain - Final Cerebral Spinal Fluid 02/23/18 08:16 Gram Stain - Final Other - Eswab 02/23/18 08:16 Gram Stain - Final Vertebral Disc 02/23/18 10:50 Blood Panel (PCR) - Final Blood S.aureus Methicillin Suscept. 02/26/18 06:30 Gram Stain - Final Cerebral Spinal Fluid Laboratory Results 02/25/18 12:00 02/25/18 12:00 02/25/18 02/26/18 02/27/18 05:59 05:59 05:59 Intake Total 3518 3692 Output Total 6899 0849 87 Balance -695 -897 -87 PT 13.6 SEC (12.0-15.0) 02/22/18 04:28 INR 1.02 (0.83-1.16) 02/22/18 04:28 Microbiology 02/24/18 08:17 Cerebral Spinal Fluid Gram Stain - Final 02/24/18 08:17 Cerebral Spinal Fluid Gram Stain - Final 02/24/18 08:17 Cerebral Spinal Fluid CSF Culture - Preliminary Staphylococcus Aureus 02/24/18 08:17 Cerebral Spinal Fluid CSF Culture - Preliminary Staphylococcus Aureus 02/23/18 11:00 Blood Blood Culture - Preliminary Staphylococcus Aureus 02/23/18 11:00 Blood Blood Culture - Preliminary Gram Positive Cocci Clusters Physical Exam - Physical Exam General Appearance: alert, no apparent distress EENT: pharynx normal Neck: normal inspection Respiratory: lungs clear Cardiac/Chest: regular rate, rhythm, edema Abdomen: normal bowel sounds, non-tender Skin: normal color, warm/dry Extremities: normal inspection Neuro/Psych: alert, normal mood/affect ICD10 Worksheet Patient Problems: Problems Problem Status Onset CSF leak Acute Herniated intervertebral disc of lumbar spine Acute Low back pain Acute Lumbar radicular pain Acute
[2018-02-26] MEDS: DIAZEPAM 5 MG TAB PO PRN ×2 (13:37→19:28)
[2018-02-26] MEDS ORDERED: HYDROmorphONE/DILAUDID 1 MG/ML INJ IVP PRN (14:33)
[2018-02-26] MEDS ORDERED: GADOBUTROL 10 ML VIAL IVP ONE (15:09)
[2018-02-26] MEDS: DEXMEDETOMIDINE IN 0.9 % NACL 100 ML IV SCH (19:28)
[2018-02-27] MEDS: oxyCODONE IR 5 MG TAB PO PRN ×5 (01:06→21:04)
[2018-02-27] MEDS: NAFCILLIN SODIUM 2 GM in D5W 100 ML IV SCH ×6 (02:11→21:03)
[2018-02-27] MEDS: DEXMEDETOMIDINE IN 0.9 % NACL 100 ML IV SCH (04:56)
[2018-02-27] MEDS: DIAZEPAM 5 MG TAB PO PRN ×3 (04:59→19:54)
[2018-02-27] MEDS: LEVOTHYROXINE 200 MCG TAB PO SCH (06:03)
[2018-02-27] MEDS: ACETAMINOPHEN 500 MG TAB PO SCH ×3 (06:31→21:39)
--- NOTE | 2018-02-27 06:55 | NEUSURGPN ---
Assessment/Plan: A/P: 57 yo female that is admitted to IM with lower back pain and RLE pain that has a right sided HNP at L4/5. Pt is s/p right L4/5 CYNTHIA with LD placement. CSF leak discovered during exposure prior to any contact with Dura by Dr Gusman (please see op note for details and further description). -Pain management - increased gabapentin for right groin pain. resume precedex -MRI hip w/o joint involvement but shows myositis/fascitis which helps explain pt's right groin pain. Continue with pain management and muscle relaxants -CSF + for gram + cocci. WBC count in CSF very elevated as well. Will send new CSF sample for culture tomorrow. -MRI L spine w/wo ordered for Wednesday per Dr Gusman -Wound with gram + cocci - appreciate ID following -Blood cx + for staph, cultures from 02/25 are still pending -Continue lying flat/LD drain at 10-15cc/hr -Ruiz d/t immobility -Call NS with any issues -d/w Dr Gusman. Subjective: Pt resting in bed, states she was able to sleep all night. Had continued groin pain yesterday. Objective: AAOx3 NAD VSS MAEx4 Motor 5/5 BLE Incision dressed LD with clear/straw colored fluid in line +LT Urinary Catheter in Place: Yes Urinary Catheter Indication: Surgical Requirement Catheter Insertion Date: 02/23/18 - Physician Discussed Patient with Dr.: Gusman Neurosurgery Physical Exam - Vitals, I&O, Labs I and O 02/26/18 02/27/18 02/28/18 05:59 05:59 05:59 Intake Total 3692 3344.4 Output Total 4589 5179 15 Balance -897 -1834.6 -15 Intake: Oral (ml) 3000 2500 IV Intake (ml) 492 750 IV Infused (ml) 200 94.4 Dexmedetomidine HCl 400 94.4 mcg In Ns 100 ml @ Titrate IV CONT ARAVIND Rx#: [id number] Nafcillin Sodium 2 gm In 200 D5w 100 ml @ 100 mls/hr IV Q4HRS ARAVIND Rx#: [id number] Output: Urine (ml) 4300 4900 Catheter 4300 4900 CSF Drainage Amount 289 279 15 Lumbar Drain 289 279 15 Other: Intake Quantity Yes Sufficient Number of Stools Catheter 0 Microbiology 02/24/18 08:17 Gram Stain - Final Cerebral Spinal Fluid 02/23/18 08:16 Gram Stain - Final Other - Eswab 02/23/18 08:16 Gram Stain - Final Vertebral Disc 02/23/18 10:50 Blood Panel (PCR) - Final Blood S.aureus Methicillin Suscept. 02/26/18 06:30 Gram Stain - Final Cerebral Spinal Fluid Vital Signs Temp Pulse Resp BP Pulse Ox 36.8 C 61 12 139/82 H 93 02/27/18 05:00 02/27/18 06:00 02/27/18 06:00 02/27/18 06:00 02/27/18 06:00 Laboratory Results 02/26/18 12:17 02/26/18 12:17 ICD10 Worksheet Patient Problems: Problems Problem Status Onset CSF leak Acute Herniated intervertebral disc of lumbar spine Acute Low back pain Acute Lumbar radicular pain Acute
[2018-02-27] MEDS: GABAPENTIN 400 MG CAP PO SCH ×3 (08:08→21:03)
[2018-02-27] MEDS: CYCLOBENZAPRINE 10 MG TAB PO SCH ×3 (08:08→21:04)
[2018-02-27] MEDS: amLODIPine BESYLATE 5 MG TAB PO SCH (08:08)
[2018-02-27] MEDS: CETIRIZINE 10 MG TAB PO SCH (08:09)
[2018-02-27] MEDS: DULoxetine 60 MG CAP PO SCH (08:09)
[2018-02-27] MEDS: SENNOSIDES/DOCUSATE SODIUM TAB PO SCH ×2 (08:09→21:04)
[2018-02-27] MEDS: ENOXAPARIN 40 MG/0.4 ML SYR SC SCH (08:09)
[2018-02-27] MEDS: FAMOTIDINE 20 MG TAB PO SCH ×2 (08:09→21:39)
[2018-02-27] MEDS: lamoTRIgine 100 MG TAB PO SCH (08:09)
--- NOTE | 2018-02-27 11:19 | HOSPPROG ---
Hospitalist Progress Note Assessment/Plan: #MSSA bacteremia with epidural abscess -LD drain in place. Blood culture 02/25 MSSA positive. Spoke with Dr. Clark, who says hip not likely source. Re-image spine tomorrow to determine if repeat drainage needed. Repeat blood cultures today. Cont nafcillin gtt #Right groin pain: increase gabapentin, valium. Spoke with NSGY and pain not c/ w level of herniation. MRI shows myositis/fascitis rectus femoris, no abscess. Plan to cont IV abx. PRN Precedex at night #Depression/anxiety: cont home meds #Constipation: had BM. Cont bowel regimen #Obesity #HTN: home meds #Leukocytosis: trending down #Diet: regular #DVT ppx: SCDs #Disp:cont inpatient admission for lumbar drain, IV abx Subjective: had BM last night. Pain in right groin controlled Objective: Vital Signs Temp Pulse Resp BP Pulse Ox 36.6 C 72 10 L 125/67 H 100 02/27/18 08:00 02/27/18 11:00 02/27/18 11:00 02/27/18 11:00 02/27/18 11:00 Microbiology 02/26/18 06:30 Gram Stain - Final Cerebral Spinal Fluid 02/24/18 08:17 Gram Stain - Final Cerebral Spinal Fluid 02/23/18 10:50 Blood Panel (PCR) - Final Blood S.aureus Methicillin Suscept. 02/23/18 08:16 Gram Stain - Final Other - Eswab 02/23/18 08:16 Gram Stain - Final Vertebral Disc Laboratory Results 02/26/18 12:17 02/26/18 12:17 02/26/18 02/27/18 02/28/18 05:59 05:59 05:59 Intake Total 3692 3344.4 Output Total 4589 5179 70 Balance -897 -1834.6 -70 PT 13.6 SEC (12.0-15.0) 02/22/18 04:28 INR 1.02 (0.83-1.16) 02/22/18 04:28 - Time Spent With Patient Time Spent with Patient: greater than 35 minutes Time Spent with Patient: Greater than 35 minutes spent on this patients care, greater than 50% of time spent counseling, educating, and coordinating care regarding the above mentioned plan. - Physical Exam Constitutional: no apparent distress Eyes: PERRL Ears, Nose, Mouth, Throat: moist mucous membranes Cardiovascular: regular rate and rhythym Respiratory: no respiratory distress Gastrointestinal: normoactive bowel sounds Genitourinary: reardon in urethra Skin: warm Musculoskeletal: other (TTP right groin. No overlying erythema or swelling ) Psychiatric: interacting appropriately ICD10 Worksheet Patient Problems: Problems Problem Status Onset CSF leak Acute Herniated intervertebral disc of lumbar spine Acute Low back pain Acute Lumbar radicular pain Acute
--- NOTE | 2018-02-27 11:25 | PCMIDPN ---
Assessment/Plan: Assessment: MSSA bacteremia with epidural abscess. Patient is status post epidural abscess debridement. She is being managed on IV nafcillin and appears to be tolerating the antibiotic without clinical issue. Blood cultures from 2 days ago are continuing to grow MSSA. MRI imaging of the right lower extremity revealed mild myositis and mild focal fasciitis of the proximal rectus femoris. This was without drainable abscess or collection. At this point I think that this manifestation although likely due to MSSA is going to be taken care of in the course of treatment. I am anticipating the MRI of the lumbar spine in followup tomorrow to be instructive as to whether there are residual foci of infected collections within the epidural space that need to be addressed again surgically. Plan: 1. Continue IV nafcillin at present dose. 2. Monitor laboratories. 3. Follow up on blood cultures. 4. MRI of lumbar spine tomorrow. Subjective: Patient is resting comfortably in her hospital bed. Clinically she is stable. Objective: Nafcillin # 3 Vital Signs Temp Pulse Resp BP Pulse Ox 36.6 C 72 10 L 125/67 H 100 02/27/18 08:00 02/27/18 11:00 02/27/18 11:00 02/27/18 11:00 02/27/18 11:00 Microbiology 02/26/18 06:30 Gram Stain - Final Cerebral Spinal Fluid 02/24/18 08:17 Gram Stain - Final Cerebral Spinal Fluid 02/23/18 10:50 Blood Panel (PCR) - Final Blood S.aureus Methicillin Suscept. 02/23/18 08:16 Gram Stain - Final Other - Eswab 02/23/18 08:16 Gram Stain - Final Vertebral Disc Laboratory Results 02/26/18 12:17 02/26/18 12:17 02/26/18 02/27/18 02/28/18 05:59 05:59 05:59 Intake Total 3692 3344.4 Output Total 4589 5179 70 Balance -897 -1834.6 -70 C-Reactive Protein 190.7 mg/L (<10.0) H 02/23/18 04:28 - Physical Exam General Appearance: WD/WN, alert, no apparent distress, non-toxic Respiratory: lungs clear, normal breath sounds, No respiratory distress Cardiac/Chest: regular rate, rhythm, No tachycardia Skin: normal color, warm/dry, rash Neuro/Psych: alert ICD10 Worksheet Patient Problems: Problems Problem Status Onset CSF leak Acute Herniated intervertebral disc of lumbar spine Acute Low back pain Acute Lumbar radicular pain Acute
--- NOTE | 2018-02-27 12:45 | PDINTPN ---
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 MRI shows a non-adjacent area moyositis/ fasciitis right rectus femoris. Culture now with MSSA, growing from wound, blood , and CSF. Repeat blood Cx and CSF continue to grow MSSA. On nafcillin. WBC still mildly elevated, afebrile. Lumbar drain in place HTN: Now normotensive on amlodipine, which she's on as an outpatient. Hyperkalemia: Normalized Elevated ALT. Mild, persists Plan: Follow CBC, LFTs. Pain control with PRN narcotics PO and IV. Precedex and night PRN. Continue lumbar drain/lay flat per NS, nafcillin per ID. Repeat L-spine MRI tomorrow. 02/26/18 12:26 02/27/18 12:43 Subjective: Feels better after pain made sleep difficult last night. Pain control better today.+BM Objective: Vital Signs Temp Pulse Resp BP Pulse Ox 36.5 C 69 13 110/94 H 100 02/27/18 12:00 02/27/18 12:00 02/27/18 12:00 02/27/18 12:00 02/27/18 12:00 Microbiology 02/26/18 06:30 Gram Stain - Final Cerebral Spinal Fluid 02/24/18 08:17 Gram Stain - Final Cerebral Spinal Fluid 02/23/18 10:50 Blood Panel (PCR) - Final Blood S.aureus Methicillin Suscept. 02/23/18 08:16 Gram Stain - Final Other - Eswab 02/23/18 08:16 Gram Stain - Final Vertebral Disc Laboratory Results 02/26/18 12:17 02/26/18 12:17 02/26/18 02/27/18 02/28/18 05:59 05:59 05:59 Intake Total 3692 3344.4 Output Total 4589 5179 1658 Balance -897 -1834.6 -1658 PT 13.6 SEC (12.0-15.0) 02/22/18 04:28 INR 1.02 (0.83-1.16) 02/22/18 04:28 MRI: Myositis right rectus femoris. Images reviiewed by me. Microbiology 02/26/18 06:30 Cerebral Spinal Fluid Gram Stain - Final 02/26/18 06:30 Cerebral Spinal Fluid CSF Culture - Preliminary Staphylococcus Aureus 02/25/18 16:12 Blood Blood Culture - Preliminary Gram Positive Cocci Clusters Physical Exam - Physical Exam General Appearance: alert, no apparent distress EENT: normal ENT inspection Neck: normal inspection Respiratory: lungs clear, normal breath sounds Cardiac/Chest: regular rate, rhythm, edema Abdomen: normal bowel sounds, non-tender Skin: normal color, warm/dry Extremities: normal inspection Neuro/Psych: alert, normal mood/affect, oriented x 3 ICD10 Worksheet Patient Problems: Problems Problem Status Onset CSF leak Acute Herniated intervertebral disc of lumbar spine Acute Low back pain Acute Lumbar radicular pain Acute
[2018-02-28] MEDS: NAFCILLIN SODIUM 2 GM in D5W 100 ML IV SCH ×6 (01:49→20:53)
[2018-02-28] MEDS: LEVOTHYROXINE 200 MCG TAB PO SCH (05:29)
[2018-02-28] MEDS: DEXMEDETOMIDINE IN 0.9 % NACL 100 ML IV SCH ×2 (05:30→08:09)
[2018-02-28] MEDS: ACETAMINOPHEN 500 MG TAB PO SCH ×3 (05:30→22:17)
--- NOTE | 2018-02-28 07:50 | NEUSURGPN ---
Date of Surgery: 02/23/18 Post Op Day: 5 Assessment/Plan: A/P: 57 yo female that is admitted to IM with lower back pain and RLE pain that has a right sided HNP at L4/5. Pt is s/p right L4/5 CYNTHIA with LD placement. CSF leak discovered during exposure prior to any contact with Dura by Dr Gusman (please see op note for details and further description). -Pain management - increased gabapentin for right groin pain. resume precedex- patient states she was comfortable last night with current regimen -MRI hip w/o joint involvement but shows myositis/fascitis which helps explain pt's right groin pain. Continue with pain management and muscle relaxants -CSF + for gram + cocci. WBC count in CSF elevated as well. Will send new CSF fluid for culture this am -MRI L spine w/wo today -Wound with gram + cocci - appreciate ID following -Blood cx + for staph, cultures from 02/25 are still pending -Continue lying flat/LD drain at 10-15cc/hr -Ruiz d/t immobility -Please call neurosurgery with any questions/concerns -Discussed patient with Dr Gusman. Subjective: Patient is comfortable, understands the plan Objective: AxO x3 MAEx4 5/5 BLE Incision dressed LD with clear/straw colored fluid in line Sensation intact to light touch BLE Neuro Check Frequency: per routine Urinary Catheter Indication: Other (Use Comment) (Not ambulating, laying flat with lumbar drain) Catheter Insertion Date: 02/23/18 - Physician Discussed Patient with Dr.: Gusman Neurosurgery Physical Exam - Vitals, I&O, Labs I and O 02/27/18 02/28/18 03/01/18 05:59 05:59 05:59 Intake Total 3344.4 4549 Output Total 5179 4925 16 Balance -1834.6 -376 -16 Intake: Oral (ml) 2500 3700 IV Intake (ml) 750 649 IV Infused (ml) 94.4 200 Dexmedetomidine HCl 400 94.4 200 mcg In Ns 100 ml @ Titrate IV CONT ARAVIND Rx#: [id number] Output: Urine (ml) 4900 4625 Catheter 4900 4625 CSF Drainage Amount 279 300 16 Lumbar Drain 279 300 16 Other: Intake Quantity Yes Yes Sufficient Number of Stools Catheter 0 1 Microbiology 02/26/18 06:30 Gram Stain - Final Cerebral Spinal Fluid 02/24/18 08:17 Gram Stain - Final Cerebral Spinal Fluid CSF Culture - Final Staphylococcus Aureus 02/23/18 10:50 Blood Panel (PCR) - Final Blood S.aureus Methicillin Suscept. Vital Signs Temp Pulse Resp BP Pulse Ox 37.0 C 63 17 103/67 97 02/28/18 04:00 02/28/18 07:00 02/28/18 07:00 02/28/18 07:00 02/28/18 07:00 Laboratory Results 02/28/18 04:20 02/28/18 04:20 ICD10 Worksheet Patient Problems: Problems Problem Status Onset CSF leak Acute Herniated intervertebral disc of lumbar spine Acute Low back pain Acute Lumbar radicular pain Acute
[2018-02-28] MEDS: DULoxetine 60 MG CAP PO SCH (09:04)
[2018-02-28] MEDS: lamoTRIgine 100 MG TAB PO SCH (09:04)
[2018-02-28] MEDS: GABAPENTIN 400 MG CAP PO SCH ×3 (09:05→20:51)
[2018-02-28] MEDS: SENNOSIDES/DOCUSATE SODIUM TAB PO SCH ×2 (09:05→20:50)
[2018-02-28] MEDS: CETIRIZINE 10 MG TAB PO SCH (09:05)
[2018-02-28] MEDS: FAMOTIDINE 20 MG TAB PO SCH ×2 (09:05→20:51)
[2018-02-28] MEDS: CYCLOBENZAPRINE 10 MG TAB PO SCH ×3 (09:05→20:51)
[2018-02-28] MEDS: ENOXAPARIN 40 MG/0.4 ML SYR SC SCH (09:05)
[2018-02-28] MEDS: amLODIPine BESYLATE 5 MG TAB PO SCH (09:05)
--- NOTE | 2018-02-28 09:40 | PDINTPN ---
Exceptional Needs Teacher Progress Note Assessment/Plan: Assessment/plan: * L4-5 discitis/epidural infection. MRI shows a non-adjacent area myositis/ fasciitis right rectus femoris. Culture now with MSSA, growing from wound, blood , and CSF. Repeat blood Cx and CSF continue to grow MSSA. On nafcillin. WBC still mildly elevated, afebrile. Lumbar drain in place * HTN: Now normotensive on amlodipine, which she's on as an outpatient. * Hyperkalemia: Normalized * Pain-well controlled * Elevated ALT. Mild, persists * VT prophylaxis * Stress ulcer prophylaxis * Nutrition-adequate * PT/OT-on hold Subjective: Lying flat. Pain well controlled. In good spirits. Objective: Vital Signs Temp Pulse Resp BP Pulse Ox 36.6 C 73 20 120/62 97 02/28/18 08:00 02/28/18 08:00 02/28/18 08:00 02/28/18 09:05 02/28/18 08:00 Microbiology 02/28/18 07:30 Gram Stain - Final Cerebral Spinal Fluid 02/26/18 06:30 Gram Stain - Final Cerebral Spinal Fluid 02/24/18 08:17 Gram Stain - Final Cerebral Spinal Fluid CSF Culture - Final Staphylococcus Aureus 02/23/18 10:50 Blood Panel (PCR) - Final Blood S.aureus Methicillin Suscept. Laboratory Results 02/28/18 04:20 02/28/18 04:20 02/27/18 02/28/18 03/01/18 05:59 05:59 05:59 Intake Total 3344.4 4549 Output Total 5179 4925 30 Balance -1834.6 -376 -30 PT 13.6 SEC (12.0-15.0) 02/22/18 04:28 INR 1.02 (0.83-1.16) 02/22/18 04:28 - Time Spent With Patient Time Spent With Patient: 25 min of time spent with patient, over 1/2 involved with coordination of care or counseling Physical Exam - Physical Exam General Appearance: WD/WN, alert, no apparent distress EENT: PERRL/EOMI Neck: non-tender Respiratory: chest non-tender, lungs clear, normal breath sounds Cardiac/Chest: normal peripheral pulses, regular rate, rhythm Peripheral Pulses: 2+: carotid (R), carotid (L), femoral (R), femoral (L), dorsalis-pedis (R), dorsalis-pedis (L) Abdomen: normal bowel sounds, non-tender, soft Pelvic Exam: deferred Rectal: deferred Skin: normal color, warm/dry Extremities: normal range of motion, non-tender, normal inspection, normal capillary refill Neuro/Psych: alert ICD10 Worksheet Patient Problems: Problems Problem Status Onset CSF leak Acute Herniated intervertebral disc of lumbar spine Acute Low back pain Acute Lumbar radicular pain Acute
[2018-02-28] MEDS ORDERED: CEPACOL LOZENGE PO PRN (09:57)
--- NOTE | 2018-02-28 10:16 | HOSPPROG ---
Hospitalist Progress Note Assessment/Plan: #MSSA bacteremia with epidural abscess -LD drain in place. Blood culture 02/25 MSSA positive. Spoke with Dr. Clark, who says hip not likely source. L-spine MRI today Repeat blood cultures 02/27. Cont nafcillin gtt #Right groin pain: increase gabapentin, valium. Spoke with NSGY and pain not c/ w level of herniation. MRI shows myositis/fascitis rectus femoris, no abscess. Plan to cont IV abx. PRN Precedex at night #Depression/anxiety: cont home meds #Constipation: had BM. Cont bowel regimen #Obesity #HTN: home meds #Leukocytosis: trending down #Diet: regular #DVT ppx: SCDs #Disp:cont inpatient admission for lumbar drain, IV abx Subjective: right groin pain oout of control last night; better with Precedex Objective: Vital Signs Temp Pulse Resp BP Pulse Ox 36.6 C 65 12 106/58 L 94 02/28/18 08:00 02/28/18 10:00 02/28/18 10:00 02/28/18 10:00 02/28/18 10:00 Microbiology 02/28/18 07:30 Gram Stain - Final Cerebral Spinal Fluid 02/26/18 06:30 Gram Stain - Final Cerebral Spinal Fluid 02/24/18 08:17 Gram Stain - Final Cerebral Spinal Fluid CSF Culture - Final Staphylococcus Aureus 02/23/18 10:50 Blood Panel (PCR) - Final Blood S.aureus Methicillin Suscept. Laboratory Results 02/28/18 04:20 02/28/18 04:20 02/27/18 02/28/18 03/01/18 05:59 05:59 05:59 Intake Total 3344.4 4549 Output Total 5179 4925 49 Balance -1834.6 -376 -49 PT 13.6 SEC (12.0-15.0) 02/22/18 04:28 INR 1.02 (0.83-1.16) 02/22/18 04:28 - Physical Exam Constitutional: obese Eyes: PERRL Ears, Nose, Mouth, Throat: moist mucous membranes Cardiovascular: regular rate and rhythym Respiratory: no respiratory distress Gastrointestinal: normoactive bowel sounds, soft, non-tender abdomen Genitourinary: reardon in urethra Musculoskeletal: other (right pubic TTP ) Neurologic: AAOx3, CN II-XII Intact Psychiatric: interacting appropriately ICD10 Worksheet Patient Problems: Problems Problem Status Onset CSF leak Acute Herniated intervertebral disc of lumbar spine Acute Low back pain Acute Lumbar radicular pain Acute
[2018-02-28] MEDS ORDERED: GADOBUTROL 10 ML VIAL IVP ONE (11:39)
[2018-02-28] MEDS: oxyCODONE IR 5 MG TAB PO PRN ×3 (12:34→21:05)
[2018-02-28] MEDS: DIAZEPAM 5 MG TAB PO PRN ×2 (14:20→20:50)
--- NOTE | 2018-02-28 16:55 | ASMTCMCOM ---
CM Note CM Note Notes: Patient very upset. Feels that after working for [employer] for the past 16yrs they are treating her injuries with no compassion and it has been very difficult for her to get her supervisors assist in need for Workman's Comp. She does not want anyone at the local [place] level to know anything about her condition, especially Riana Ambrosio. She is interested in knowing if Feng Nicole has authorized her stay at [facility]-message left with out [employer]. She is also interested in if she is being paid through [employer] and asked if Lorrie Morin could be contacted. This CM will continue to see what progress has been made on Wednesday. Date Signed: 02/28/2018 04:54 PM Electronically Signed By:Nae Torres LCSW
[2018-02-28] MEDS: LIDOCAINE 4%/MENTHOL 1% PATCH TD SCH (17:59)
--- NOTE | 2018-02-28 19:39 | PCMIDPN ---
Assessment/Plan: Assessment/Plan: * MSSA bacteremia with epidural abscess and CSF leak with positive CSF cultures for MSSA: CSF repeated today shows significant decrease in pleocytosis with gram stain being negative. Prior two samples showed positive Gram stain and culture both for MSSA. Repeat MRI of lumbar spine shows possible component of arachnoiditis which may be contributing to patient's persisting pain in addition to presence of myositis. Continue nafcillin 2 g IV q.4 hours. Follow up repeat blood and CSF cultures as available. If fails to clear bacteremia or CSF remains culture positive, may ultimately require repeat incision and drainage. 02/28/18 19:35 Subjective: Patient with right thigh, hip and inguinal pain. Pain radiates to foot. Low back pain markedly decreased. Objective: Vital Signs Temp Pulse Resp BP Pulse Ox 37.1 C 71 14 132/63 H 94 02/28/18 12:00 02/28/18 18:00 02/28/18 18:00 02/28/18 18:00 02/28/18 18:00 Microbiology 02/23/18 08:16 Gram Stain - Final Other - Eswab 02/23/18 08:16 Gram Stain - Final Vertebral Disc 02/23/18 11:00 Blood Culture - Final Blood Staphylococcus Aureus 02/23/18 10:50 Blood Culture - Final Blood Staphylococcus Aureus Blood Panel (PCR) - Final S.aureus Methicillin Suscept. 02/26/18 06:30 Gram Stain - Final Cerebral Spinal Fluid 02/28/18 07:30 Gram Stain - Final Cerebral Spinal Fluid 02/24/18 08:17 Gram Stain - Final Cerebral Spinal Fluid CSF Culture - Final Staphylococcus Aureus Laboratory Results 02/28/18 04:20 02/28/18 04:20 02/27/18 02/28/18 03/01/18 05:59 05:59 05:59 Intake Total 3344.4 4549 2600 Output Total 7919 6221 2963 Balance -1834.6 -376 -363 C-Reactive Protein 190.7 mg/L (<10.0) H 02/23/18 04:28 Blood cultures 02/27/2018 pending CSF Gram stain negative with culture pending MRI of lumbosacral spine showing thin residual fluid collection with clumping of the cauda equina consistent with possible arachnoiditis; bone marrow edema of L5 present consistent with osteomyelitis Laboratory Tests 02/27/18 06:40 Total Bilirubin 0.6 AST 13 L ALT 96 H Alkaline Phosphatase 100 Laboratory Tests 02/28/18 07:30 CSF WBC 228 H CSF RBC 314 H CSF Neutrophils % 56 H CSF Lymphocytes % 37 CSF Glucose 44 L CSF Total Protein 126 H - Physical Exam General Appearance: alert, no apparent distress, non-toxic EENT: No scleral icterus, No thrush, No conjunctival petechiae Respiratory: lungs clear, No respiratory distress Cardiac/Chest: regular rate, rhythm Extremities: other (No pain with range of motion of right hip) Abdomen: non-tender, No distended Skin: No embolic lesions Neuro/Psych: other (Yellow tinged CSF present) - Line/s RUE PICC Lines: No drainage, No erythema - Time Spent With Patient Time Spent with Patient: greater than 35 minutes Time Spent with Patient: Greater than 35 minutes spent on this patients care, greater than 50% of time spent counseling, educating, and coordinating care regarding the above mentioned plan. ICD10 Worksheet Patient Problems: Problems Problem Status Onset CSF leak Acute Herniated intervertebral disc of lumbar spine Acute Low back pain Acute Lumbar radicular pain Acute
[2018-02-28] MEDS: PATCH REMOVAL 1 EA PATCH TD SCH (22:18)
[2018-03-01] MEDS: DEXMEDETOMIDINE IN 0.9 % NACL 50 ML IV SCH ×2 (01:16→05:26)
[2018-03-01] MEDS: NAFCILLIN SODIUM 2 GM in D5W 100 ML IV SCH ×4 (01:16→14:10)
[2018-03-01] MEDS: oxyCODONE IR 5 MG TAB PO PRN ×5 (01:42→20:35)
[2018-03-01] MEDS: LEVOTHYROXINE 200 MCG TAB PO SCH (05:26)
[2018-03-01] MEDS: ACETAMINOPHEN 500 MG TAB PO SCH ×3 (05:26→22:41)
[2018-03-01] MEDS: DIAZEPAM 5 MG TAB PO PRN ×3 (07:41→20:36)
--- NOTE | 2018-03-01 07:58 | NEUSURGPN ---
Assessment/Plan: A/P: 57 yo female that is admitted to IM with lower back pain and RLE pain that has a right sided HNP at L4/5. Pt is s/p right L4/5 CYNTHIA with LD placement. CSF leak discovered during exposure prior to any contact with Dura by Dr Gusman (please see op note for details and further description). -Pain management - increased gabapentin for right groin pain. resume precedex- patient states she was comfortable last night with current regimen. Can increase strength of oxycodone today. -MRI hip w/o joint involvement but shows myositis/fascitis which helps explain pt's right groin pain. Continue with pain management and muscle relaxants -CSF culture from yesterday is still pending, the gram stain was negative. -MRI L spine w/wo reviewed with Dr Gusman - shows improvement compared to pre op -Wound with gram + cocci - appreciate ID following -Blood cx + for staph, cultures from 02/25 are still pending -LD is clamped, ok to advance activity - pt was unable tolerate being up yesterday due to severe groin pain. Will reassess today -PT/OT -Lovenox held in anticipation of possibly pulling drain today -Ruiz d/t immobility - can dc once up. -Please call neurosurgery with any questions/concerns -Discussed patient with Dr Gusman. Subjective: Pt resting in bed, c/o groin pain with elevated HOB. Has low grade headache that she woke up with this morning. Objective: AAOx3 NAD VSS MAEx4 Motor 5/[address] - clamped Urinary Catheter in Place: Yes Urinary Catheter Indication: Surgical Requirement Catheter Insertion Date: 02/23/18 - Physician Discussed Patient with : Naseem Neurosurgery Physical Exam - Vitals, I&O, Labs I and O 02/28/18 03/01/18 03/02/18 05:59 05:59 05:59 Intake Total 4549 4014 Output Total 4553 4063 Balance -376 -49 Intake: Oral (ml) 3700 3100 IV Intake (ml) 649 756 IV Infused (ml) 200 158 Dexmedetomidine HCl 400 200 mcg In Ns 100 ml @ Titrate IV CONT ARAVIND Rx#: [id number] Dexmedetomidine in 0.9 % 158 NaCl 100 ml @ Titrate IV CONT ARAVIND Rx#:[id number] Output: Urine (ml) 4625 4000 Catheter 4625 4000 CSF Drainage Amount 300 63 Lumbar Drain 300 63 Other: Intake Quantity Yes Yes Sufficient Output Comment Catheter notified Number of Stools Catheter 1 Microbiology 02/23/18 08:16 Gram Stain - Final Other - Eswab 02/23/18 08:16 Gram Stain - Final Vertebral Disc 02/23/18 11:00 Blood Culture - Final Blood Staphylococcus Aureus 02/23/18 10:50 Blood Culture - Final Blood Staphylococcus Aureus Blood Panel (PCR) - Final S.aureus Methicillin Suscept. 02/26/18 06:30 Gram Stain - Final Cerebral Spinal Fluid 02/28/18 07:30 Gram Stain - Final Cerebral Spinal Fluid Vital Signs Temp Pulse Resp BP Pulse Ox 37.0 C 63 12 108/56 L 94 03/01/18 04:00 03/01/18 06:00 03/01/18 06:00 03/01/18 06:00 03/01/18 06:00 Laboratory Results 02/28/18 04:20 02/28/18 04:20 ICD10 Worksheet Patient Problems: Problems Problem Status Onset CSF leak Acute Herniated intervertebral disc of lumbar spine Acute Low back pain Acute Lumbar radicular pain Acute
--- NOTE | 2018-03-01 08:47 | PDINTPN ---
Strategy Planning Consultant Progress Note Assessment/Plan: Assessment/plan: * L4-5 discitis/epidural infection. MRI shows a non-adjacent area myositis/ fasciitis right rectus femoris. Culture now with MSSA, growing from wound, blood , and CSF. Repeat blood Cx and CSF continue to grow MSSA. On nafcillin. WBC still mildly elevated, afebrile. Lumbar drain in place -head of bed elevated slightly * Bacteremia-MSSA. Antibiotics per Infectious Disease * HTN: Now normotensive on amlodipine, which she's on as an outpatient. * Hyperkalemia: Normalized * Pain-well controlled -continue Precedex * Elevated ALT. Mild, persists * VT prophylaxis * Stress ulcer prophylaxis * Nutrition-adequate * PT/OT-on hold 03/01/18 08:46 Subjective: Resting comfortably. No current complaints. Objective: Vital Signs Temp Pulse Resp BP Pulse Ox 37.1 C 85 17 123/55 H 95 03/01/18 08:00 03/01/18 08:00 03/01/18 08:00 03/01/18 08:00 03/01/18 08:00 Microbiology 02/26/18 06:30 Gram Stain - Final Cerebral Spinal Fluid 02/23/18 08:16 Gram Stain - Final Other - Eswab 02/23/18 08:16 Gram Stain - Final Vertebral Disc 02/23/18 11:00 Blood Culture - Final Blood Staphylococcus Aureus 02/23/18 10:50 Blood Culture - Final Blood Staphylococcus Aureus Blood Panel (PCR) - Final S.aureus Methicillin Suscept. 02/28/18 07:30 Gram Stain - Final Cerebral Spinal Fluid Laboratory Results 02/28/18 04:20 02/28/18 04:20 02/28/18 03/01/18 03/02/18 05:59 05:59 05:59 Intake Total 4549 4014 Output Total 4923 4063 Balance -376 -49 PT 13.6 SEC (12.0-15.0) 02/22/18 04:28 INR 1.02 (0.83-1.16) 02/22/18 04:28 Laboratory Results 02/28/18 04:20 02/28/18 04:20 02/28/18 07:30 CSF Tube Number 1 CSF Appearance SL. HAZY H CSF Color COLORLESS CSF WBC 228 /mm3 H /mm3 (0 - 5) CSF RBC 314 /mm3 H /mm3 (0 - 0) CSF Neutrophils % 56 % H % (0 - 6) CSF Lymphocytes % 37 % % (0 - 100) CSF Monos/Macrophage % 7 % % (0 - 45) CSF Glucose 44 mg/dL L mg/dL (50 - 75) CSF Total Protein 126 mg/dL H mg/dL (12 - 60) 02/26/18 06:30 Gram Stain - Final Cerebral Spinal Fluid CSF Culture - Preliminary Staphylococcus Aureus Staphylococcus Aureus#2 02/26/18 06:30 Gram Stain - Final Cerebral Spinal Fluid CSF Culture - Preliminary Staphylococcus Aureus 02/25/18 16:12 Blood Culture - Preliminary Blood Staphylococcus Aureus 02/25/18 16:12 Blood Culture - Preliminary Blood Gram Positive Cocci Clusters 02/23/18 11:00 Blood Culture - Final Blood Staphylococcus Aureus 02/23/18 10:50 Blood Culture - Final Blood Blood Panel (PCR) - Final Staphylococcus Aureus S.aureus Methicillin Suscept. 02/23/18 08:16 Gram Stain - Final Vertebral Disc Anaerobic Culture - Preliminary Staphylococcus Aureus 02/23/18 08:16 Gram Stain - Final Other - Eswab Anaerobic Culture - Preliminary Staphylococcus Aureus - Time Spent With Patient Time Spent With Patient: 25 min of time spent with patient, over 1/2 involved with coordination of care or counseling Physical Exam - Physical Exam General Appearance: alert, no apparent distress EENT: PERRL/EOMI Neck: non-tender Respiratory: chest non-tender, lungs clear Cardiac/Chest: normal peripheral pulses, regular rate, rhythm Peripheral Pulses: 2+: carotid (R), carotid (L), femoral (R), femoral (L), dorsalis-pedis (R), dorsalis-pedis (L) Abdomen: normal bowel sounds, non-tender, soft Pelvic Exam: deferred Rectal: deferred Extremities: non-tender Neuro/Psych: alert ICD10 Worksheet Patient Problems: Problems Problem Status Onset CSF leak Acute Herniated intervertebral disc of lumbar spine Acute Low back pain Acute Lumbar radicular pain Acute
--- NOTE | 2018-03-01 09:25 | PCMIDPN ---
Assessment/Plan: # MSSA epidural abscess and L4-5 discitis s/p right right-sided L4-L5 tika laminotomy with mesial facetectomy and epidural abscess evacuation with LD placement following back injury. Source of infection of unclear, but suspect chr skin picking. CSF also positive for MSSA. Blood cx 02/27 showing clearance. WBC and Cr normal yesterday --management of lumbar drain per neurosurg --continue nafcillin. Will need 8 weeks of therapy Meds nafcillin 2gm IV q4h #5 Microbiology 02/23/18 08:16 Vertebral Disc MSSA 02/23/18 08:16 Other - Eswab of epidural space MSSA 02/23/18 blood cx (2/2) MSSA 02/24/18 08:17 Cerebral Spinal Fluid CSF Culture -MSSA 02/26/18 06:30 Cerebral Spinal Fluid Staphylococcus Aureus, Staphylococcus Aureus#2 02/25/18 16:12 Blood Cx 1/2 Staphylococcus Aureus 02/27/18 14:15 Blood Cx 2 sets: NGTD 02/28/18 07:30 Cerebral Spinal Fluid CSF gram stain neg; Cx pending Subjective: back pain still challenging to control remains on Precedex Still c/o R groin pain Objective: Vital Signs Temp Pulse Resp BP Pulse Ox 37.1 C 85 17 123/55 H 95 03/01/18 08:00 03/01/18 08:00 03/01/18 08:00 03/01/18 08:00 03/01/18 08:00 Microbiology 02/26/18 06:30 Gram Stain - Final Cerebral Spinal Fluid 02/23/18 08:16 Gram Stain - Final Other - Eswab 02/23/18 08:16 Gram Stain - Final Vertebral Disc 02/23/18 11:00 Blood Culture - Final Blood Staphylococcus Aureus 02/23/18 10:50 Blood Culture - Final Blood Staphylococcus Aureus Blood Panel (PCR) - Final S.aureus Methicillin Suscept. 02/28/18 07:30 Gram Stain - Final Cerebral Spinal Fluid Laboratory Results 02/28/18 04:20 02/28/18 04:20 02/28/18 03/01/18 03/02/18 05:59 05:59 05:59 Intake Total 4545 4010 Output Total 4022 4855 Balance -376 -49 C-Reactive Protein 190.7 mg/L (<10.0) H 02/23/18 04:28 - Physical Exam General Appearance: alert, no apparent distress, other (sitting up in chair) EENT: poor dentition Respiratory: other (decrease bs bases), No accessory muscle use Neck: supple Cardiac/Chest: regular rate, rhythm, other (distant HS) Abdomen: non-tender, soft Skin: pallor, other (scattered healed excoriations), No rash Neuro/Psych: alert, normal mood/affect, oriented x 3 - Line/s RUE PICC Lines: No drainage, No erythema - Time Spent With Patient Time Spent with Patient: greater than 35 minutes Time Spent with Patient: Greater than 35 minutes spent on this patients care, greater than 50% of time spent counseling, educating, and coordinating care regarding the above mentioned plan. ICD10 Worksheet Patient Problems: Problems Problem Status Onset CSF leak Acute Herniated intervertebral disc of lumbar spine Acute Low back pain Acute Lumbar radicular pain Acute
[2018-03-01] MEDS: SENNOSIDES/DOCUSATE SODIUM TAB PO SCH ×2 (09:32→20:33)
[2018-03-01] MEDS: lamoTRIgine 100 MG TAB PO SCH (09:33)
[2018-03-01] MEDS: DULoxetine 60 MG CAP PO SCH (09:33)
[2018-03-01] MEDS: CYCLOBENZAPRINE 10 MG TAB PO SCH ×3 (09:33→22:42)
[2018-03-01] MEDS: FAMOTIDINE 20 MG TAB PO SCH ×2 (09:33→20:36)
[2018-03-01] MEDS: CETIRIZINE 10 MG TAB PO SCH (09:33)
[2018-03-01] MEDS: GABAPENTIN 400 MG CAP PO SCH ×3 (09:33→22:42)
[2018-03-01] MEDS: amLODIPine BESYLATE 5 MG TAB PO SCH (09:33)
[2018-03-01] MEDS: LIDOCAINE 4%/MENTHOL 1% PATCH TD SCH (09:33)
[2018-03-01] MEDS ORDERED: ENOXAPARIN 40 MG/0.4 ML SYR SC ONE (11:15)
--- NOTE | 2018-03-01 12:52 | HOSPPROG ---
Hospitalist Progress Note Assessment/Plan: #MSSA bacteremia with epidural abscess -LD drain in place. Blood culture 02/25, CSF today MSSA positive. LD thought to be colonized, drained removed today. Cont nafcillin gtt, 8 wks. #Right groin pain: increase gabapentin, valium. Myositis/fascitis rectus femoris , no abscess. Plan to cont IV abx. PRN Precedex at night #Depression/anxiety: cont home meds #Constipation: had BM. Cont bowel regimen #Obesity #HTN: home meds #Leukocytosis: trending down #Diet: regular #DVT ppx: SCDs, #Disp:cont inpatient admission for lumbar drain, IV abx Subjective: sitting in chair, pain persists in groin Objective: Vital Signs Temp Pulse Resp BP Pulse Ox 36.4 C 60 15 125/65 H 96 03/01/18 12:28 03/01/18 12:28 03/01/18 12:28 03/01/18 12:28 03/01/18 12:28 Microbiology 02/28/18 07:30 Gram Stain - Final Cerebral Spinal Fluid 02/26/18 06:30 Gram Stain - Final Cerebral Spinal Fluid CSF Culture - Final Staphylococcus Aureus 02/23/18 08:16 Gram Stain - Final Other - Eswab 02/23/18 08:16 Gram Stain - Final Vertebral Disc 02/23/18 11:00 Blood Culture - Final Blood Staphylococcus Aureus 02/23/18 10:50 Blood Culture - Final Blood Staphylococcus Aureus Blood Panel (PCR) - Final S.aureus Methicillin Suscept. Laboratory Results 02/28/18 04:20 03/01/18 10:38 02/28/18 03/01/18 03/02/18 05:59 05:59 05:59 Intake Total 4549 4014 400 Output Total 4925 4063 Balance -376 -49 400 PT 13.6 SEC (12.0-15.0) 02/22/18 04:28 INR 1.02 (0.83-1.16) 02/22/18 04:28 - Time Spent With Patient Time Spent with Patient: greater than 25 minutes Time Spent with Patient: Greater than 25 minutes spent on this patients care, greater than 50% of time spent counseling, educating, and coordinating care regarding the above mentioned plan. - Physical Exam Constitutional: no apparent distress, other (sitting up in bed) Eyes: PERRL Ears, Nose, Mouth, Throat: moist mucous membranes Cardiovascular: regular rate and rhythym Respiratory: no respiratory distress Gastrointestinal: normoactive bowel sounds Genitourinary: reardon in urethra Skin: warm Musculoskeletal: other (lumbar drain) Neurologic: AAOx3, CN II-XII Intact Psychiatric: interacting appropriately ICD10 Worksheet Patient Problems: Problems Problem Status Onset CSF leak Acute Herniated intervertebral disc of lumbar spine Acute Low back pain Acute Lumbar radicular pain Acute
--- NOTE | 2018-03-01 15:48 | ASMTCMCOM ---
CM Note CM Note Notes: Patient wondered if [employer] for [facility] was gooing to pay for her hospitalization. [facility] financial reports that [employer] is in the investigative stage and [facility] won't know this answer. Financial says that if [employer] does not pay patient's [facility] leana be the payor. Gave that info to patient. Patient also interested in getting [facility] paperwork to complete. This CM left message x2 for Lorrie Morin in HR, to fax the paperwork to [facility]. Have not received as yet or heard from her. Patient may need rehab and might be interested in [facility]. Date Signed: 03/01/2018 03:47 PM Electronically Signed By:Nae Torres LCSW
[2018-03-01] MEDS: NAFCILLIN SODIUM 2 GM in NS 100 ML IV SCH ×2 (18:08→22:42)
[2018-03-01] MEDS: PATCH REMOVAL 1 EA PATCH TD SCH (20:41)
[2018-03-02] MEDS: oxyCODONE IR 5 MG TAB PO PRN ×6 (00:51→20:56)
[2018-03-02] MEDS: NAFCILLIN SODIUM 2 GM in NS 100 ML IV SCH ×6 (02:47→22:54)
[2018-03-02] MEDS: LEVOTHYROXINE 200 MCG TAB PO SCH (05:31)
[2018-03-02] MEDS: ACETAMINOPHEN 500 MG TAB PO SCH ×3 (05:40→22:54)
[2018-03-02] MEDS: DIAZEPAM 5 MG TAB PO PRN ×3 (05:45→21:00)
--- NOTE | 2018-03-02 08:12 | SOAPPROG ---
SOAP Progress Note Assessment/Plan: Assessment: Ongoing right groin pain. no new weakness or tingling. MSSA bacteremia with epidural abscess, status post I&D LD drain removed. Blood culture 02/25, CSF today MSSA positive. LD thought to be colonized, drained removed today. Cont nafcillin gtt, 8 wks. Right groin pain likely due to myositis seen on right hip MRI. Using gabapentin , valium. MRI Lspine shows arachnoiditis and post op changes. Plan: Ok to transfer to floor from our standpoint IV Nafcillin x 8 weeks PT/OT as tolerated Monitor drain site - currently dry. Subjective: Lying in bed, c/o right groin pain. Slept fairly well. Objective: Vital Signs Temp Pulse Resp BP Pulse Ox 36.8 C 70 19 143/70 H 93 03/01/18 20:00 03/02/18 04:00 03/02/18 04:00 03/02/18 04:00 03/02/18 04:00 Microbiology 02/28/18 07:30 Gram Stain - Final Cerebral Spinal Fluid 02/23/18 08:16 Gram Stain - Final Other - Eswab 02/23/18 08:16 Gram Stain - Final Vertebral Disc 02/23/18 08:16 Mycobacterial Smear (BERNADETTE) - Final Vertebral Disc 02/26/18 06:30 Gram Stain - Final Cerebral Spinal Fluid CSF Culture - Final Staphylococcus Aureus Laboratory Results 02/28/18 04:20 03/01/18 10:38 03/01/18 03/02/18 03/03/18 05:59 05:59 05:59 Intake Total 4014 2563 Output Total 4063 2300 Balance -49 263 PT 13.6 SEC (12.0-15.0) 02/22/18 04:28 INR 1.02 (0.83-1.16) 02/22/18 04:28 Neuro: TATE, sens +LT incision: glued, no leakage, no redness or tenderness. ICD10 Worksheet Patient Problems: Problems Problem Status Onset CSF leak Acute Herniated intervertebral disc of lumbar spine Acute Low back pain Acute Lumbar radicular pain Acute
[2018-03-02] MEDS: lamoTRIgine 100 MG TAB PO SCH (08:46)
[2018-03-02] MEDS: DULoxetine 60 MG CAP PO SCH (08:46)
[2018-03-02] MEDS: FAMOTIDINE 20 MG TAB PO SCH ×2 (08:46→20:56)
[2018-03-02] MEDS: CETIRIZINE 10 MG TAB PO SCH (08:46)
[2018-03-02] MEDS: GABAPENTIN 400 MG CAP PO SCH ×3 (08:46→22:54)
[2018-03-02] MEDS: CYCLOBENZAPRINE 10 MG TAB PO SCH ×3 (08:46→22:54)
[2018-03-02] MEDS: amLODIPine BESYLATE 5 MG TAB PO SCH (08:47)
[2018-03-02] MEDS: LIDOCAINE 4%/MENTHOL 1% PATCH TD SCH (08:49)
[2018-03-02] MEDS: SENNOSIDES/DOCUSATE SODIUM TAB PO SCH ×2 (08:52→21:16)
--- NOTE | 2018-03-02 08:57 | PDINTPN ---
Insurance Sales Manager Progress Note Assessment/Plan: Assessment/plan: * L4-5 discitis/epidural infection. MRI shows a non-adjacent area myositis/ fasciitis right rectus femoris. Culture now with MSSA, growing from wound, blood , and CSF. Repeat blood Cx and CSF continue to grow MSSA. On nafcillin. WBC still mildly elevated, afebrile. Lumbar drain removed * Bacteremia-MSSA. Antibiotics per Infectious Disease * HTN: Now normotensive on amlodipine, which she's on as an outpatient. * Hyperkalemia: Normalized * Pain-well controlled -continue Precedex * Elevated ALT. Mild, persists * VT prophylaxis * Stress ulcer prophylaxis * Nutrition-adequate * PT/OT-on hold * Disposition-okay for floor from neurosurgical standpoint Subjective: Resting comfortably. No current complaints. Objective: Vital Signs Temp Pulse Resp BP Pulse Ox 37 C 76 21 H 123/66 H 96 03/02/18 08:00 03/02/18 08:00 03/02/18 08:00 03/02/18 08:00 03/02/18 08:00 Microbiology 02/28/18 07:30 Gram Stain - Final Cerebral Spinal Fluid 02/23/18 08:16 Gram Stain - Final Other - Eswab 02/23/18 08:16 Gram Stain - Final Vertebral Disc 02/23/18 08:16 Mycobacterial Smear ([place]) - Final Vertebral Disc 02/26/18 06:30 Gram Stain - Final Cerebral Spinal Fluid CSF Culture - Final Staphylococcus Aureus Laboratory Results 02/28/18 04:20 03/01/18 10:38 03/01/18 03/02/18 03/03/18 05:59 05:59 05:59 Intake Total 4014 2563 Output Total 4063 2300 Balance -49 263 PT 13.6 SEC (12.0-15.0) 02/22/18 04:28 INR 1.02 (0.83-1.16) 02/22/18 04:28 - Time Spent With Patient Time Spent With Patient: 25 min of time spent with patient, over 1/2 involved with coordination of care or counseling Physical Exam - Physical Exam General Appearance: no apparent distress, No alert EENT: PERRL/EOMI Neck: non-tender Respiratory: chest non-tender Cardiac/Chest: normal peripheral pulses, regular rate, rhythm Peripheral Pulses: 2+: carotid (R), carotid (L), femoral (R), femoral (L), dorsalis-pedis (R), dorsalis-pedis (L) Abdomen: normal bowel sounds, non-tender, soft Pelvic Exam: deferred Rectal: deferred Skin: normal color, warm/dry Extremities: non-tender Neuro/Psych: alert ICD10 Worksheet Patient Problems: Problems Problem Status Onset CSF leak Acute Herniated intervertebral disc of lumbar spine Acute Low back pain Acute Lumbar radicular pain Acute
[2018-03-02] MEDS: LOPERAMIDE HCL 2 MG CAP PO PRN ×2 (09:24→13:53)
--- NOTE | 2018-03-02 11:23 | PCMIDPN ---
Assessment/Plan: # MSSA bacteremia and epidural abscess and L4-5 discitis s/p right right-sided L4-L5 tika laminotomy with mesial facetectomy and epidural abscess evacuation s/ p LD. LD removed yesterday. Source of infection of unclear, but suspect chr skin picking. CSF also positive for MSSA. Blood cx 02/27 showing clearance. --to completely eval valves rec MILTON, discuss w cards --continue nafcillin --CMP and CBC tomorrow to monitor for antibiotic toxicity --PICC placed 02/25, will need exchange bc placed during bacteremia, but not emergency. Meds nafcillin 2gm IV q4h #6 Microbiology 02/23/18 08:16 Vertebral Disc MSSA 02/23/18 08:16 Other - Eswab of epidural space MSSA 02/23/18 blood cx (2/2) MSSA 02/24/18 08:17 Cerebral Spinal Fluid CSF Culture -MSSA 02/26/18 06:30 Cerebral Spinal Fluid Staphylococcus Aureus, Staphylococcus Aureus#2 02/25/18 16:12 Blood Cx 1/2 Staphylococcus Aureus 02/27/18 14:15 Blood Cx 2 sets: NGTD 02/28/18 07:30 Cerebral Spinal Fluid CSF gram stain neg; Cx SA Subjective: less back pain today still with right inguinal pain Objective: Vital Signs Temp Pulse Resp BP Pulse Ox 37 C 76 21 H 123/66 H 96 03/02/18 08:00 03/02/18 08:00 03/02/18 08:00 03/02/18 08:00 03/02/18 08:00 Microbiology 02/28/18 07:30 Gram Stain - Final Cerebral Spinal Fluid 02/23/18 08:16 Gram Stain - Final Other - Eswab 02/23/18 08:16 Gram Stain - Final Vertebral Disc 02/23/18 08:16 Mycobacterial Smear ([place]) - Final Vertebral Disc 02/26/18 06:30 Gram Stain - Final Cerebral Spinal Fluid CSF Culture - Final Staphylococcus Aureus Laboratory Results 02/28/18 04:20 03/01/18 10:38 03/01/18 03/02/18 03/03/18 05:59 05:59 05:59 Intake Total 4014 2563 Output Total 4063 2300 Balance -49 263 C-Reactive Protein 190.7 mg/L (<10.0) H 02/23/18 04:28 - Physical Exam General Appearance: alert, no apparent distress EENT: No thrush Respiratory: lungs clear, No accessory muscle use Neck: supple, No meningismus Cardiac/Chest: regular rate, rhythm, No systolic murmur Extremities: pedal edema Abdomen: non-tender, soft Skin: warm/dry, pallor, other (multiple healed excoriations) Neuro/Psych: alert, normal mood/affect, oriented x 3 - Line/s RUE PICC Lines: No drainage, No erythema - Time Spent With Patient Time Spent with Patient: greater than 35 minutes Time Spent with Patient: Greater than 35 minutes spent on this patients care, greater than 50% of time spent counseling, educating, and coordinating care regarding the above mentioned plan. ICD10 Worksheet Patient Problems: Problems Problem Status Onset CSF leak Acute Herniated intervertebral disc of lumbar spine Acute Low back pain Acute Lumbar radicular pain Acute
--- NOTE | 2018-03-02 14:50 | HOSPPROG ---
Hospitalist Progress Note Assessment/Plan: #MSSA bacteremia with epidural abscess: suspect from skin-picking -blood cultures 02/27 clear. CSF drain likely colonization. Cont nafcillin gtt, 8 wks. -PICC line needs to be exchanged in next few days since placed during bacteremia #Right groin pain: increase gabapentin, valium. Myositis/fascitis rectus femoris , no abscess. Plan to cont IV abx. #Depression/anxiety: cont home meds #Constipation: had BM. Cont bowel regimen #Obesity #HTN: home meds #Leukocytosis: trending down #Diet: regular #DVT ppx: SCDs, #Disp:cont inpatient admission for lumbar drain, IV abx. Transfer to floor Subjective: groin pain stable Objective: Vital Signs Temp Pulse Resp BP Pulse Ox 37 C 77 21 H 124/107 H 96 03/02/18 08:00 03/02/18 09:30 03/02/18 08:00 03/02/18 09:30 03/02/18 08:00 Microbiology 02/23/18 08:16 Gram Stain - Final Other - Eswab 02/23/18 08:16 Gram Stain - Final Vertebral Disc 02/25/18 12:00 Blood Culture - Final Blood 02/28/18 07:30 Gram Stain - Final Cerebral Spinal Fluid 02/23/18 08:16 Mycobacterial Smear ([place]) - Final Vertebral Disc 02/26/18 06:30 Gram Stain - Final Cerebral Spinal Fluid CSF Culture - Final Staphylococcus Aureus Laboratory Results 02/28/18 04:20 03/01/18 10:38 03/01/18 03/02/18 03/03/18 05:59 05:59 05:59 Intake Total 4014 2563 Output Total 4063 2300 Balance -49 263 PT 13.6 SEC (12.0-15.0) 02/22/18 04:28 INR 1.02 (0.83-1.16) 02/22/18 04:28 - Time Spent With Patient Time Spent with Patient: greater than 25 minutes Time Spent with Patient: Greater than 25 minutes spent on this patients care, greater than 50% of time spent counseling, educating, and coordinating care regarding the above mentioned plan. - Physical Exam Constitutional: no apparent distress, obese Eyes: PERRL Ears, Nose, Mouth, Throat: moist mucous membranes Cardiovascular: regular rate and rhythym Respiratory: no respiratory distress Gastrointestinal: normoactive bowel sounds Skin: warm Musculoskeletal: full muscle strength Neurologic: AAOx3, CN II-XII Intact Psychiatric: interacting appropriately ICD10 Worksheet Patient Problems: Problems Problem Status Onset CSF leak Acute Herniated intervertebral disc of lumbar spine Acute Low back pain Acute Lumbar radicular pain Acute
[2018-03-02] MEDS: diphenhydrAMINE 25 MG CAP PO PRN (16:36)
[2018-03-02] MEDS ORDERED: NS 1,000 ML IV ONE (16:55)
[2018-03-02] MEDS: PATCH REMOVAL 1 EA PATCH TD SCH (20:57)
[2018-03-03] MEDS: NAFCILLIN SODIUM 2 GM in NS 100 ML IV SCH ×6 (02:06→21:04)
[2018-03-03] MEDS: oxyCODONE IR 5 MG TAB PO PRN ×5 (02:06→21:04)
[2018-03-03 05:35] LABS: PLATELET COUNT 378 10^3/uL (150-400)
[2018-03-03] MEDS: LEVOTHYROXINE 200 MCG TAB PO SCH (05:58)
[2018-03-03] MEDS: ACETAMINOPHEN 500 MG TAB PO SCH ×3 (05:58→23:00)
--- NOTE | 2018-03-03 07:04 | NEUSURGPN ---
Assessment/Plan: Assessment: Ongoing right groin pain - stat. no new weakness or tingling. MSSA bacteremia with epidural abscess, status post I&D Plan: -LD drain removed on 03/01 -Most recent blood cx are NGTD -Cont nafcillin gtt, 8 wks. -Right groin pain likely due to myositis seen on right hip MRI. Using gabapentin, valium. Pt states this is improved somewhat -MRI Lspine shows arachnoiditis and post op changes. -Med surg status -PT/OT as tolerated -Monitor drain site - currently dry. -Will need post op visit with Dr Gusman in 2-3 weeks for suture removal -NPO for MILTON today -D/w Dr Gusman -Call NS with any issues Subjective: Pt resting in bed, states she didn't sleep well overnight, was restless. Pt states that her groin pain better yesterday Objective: AAOx3 NAD VSS MAEx4 Motor 5/5 BLE Wound dressed cdi +LT Urinary Catheter in Place: No Catheter Insertion Date: 02/23/18 - Physician Discussed Patient with : Naseem Neurosurgery Physical Exam - Vitals, I&O, Labs I and O 03/02/18 03/03/18 03/04/18 05:59 05:59 05:59 Intake Total 2863 3250 Output Total 2300 1000 Balance 563 2250 Intake: Oral (ml) 2100 2700 IV Intake (ml) 725 550 IV Infused (ml) 38 Dexmedetomidine in 0.9 % 38 NaCl 100 ml @ Titrate IV CONT ARAVIND Rx#:[id number] Output: Urine (ml) 2300 1000 Catheter 1600 Toilet 700 1000 Other: Intake Quantity Yes Sufficient Number of Voids Toilet 2 2 Number of Stools Toilet 1 2 Microbiology 02/25/18 16:12 Blood Culture - Final Blood Staphylococcus Aureus 02/23/18 08:16 Gram Stain - Final Other - Eswab 02/23/18 08:16 Gram Stain - Final Vertebral Disc 02/25/18 12:00 Blood Culture - Final Blood 02/28/18 07:30 Gram Stain - Final Cerebral Spinal Fluid Vital Signs Temp Pulse Resp BP Pulse Ox 36.8 C 77 17 121/68 H 93 03/03/18 00:00 03/03/18 00:00 03/03/18 00:00 03/03/18 00:00 03/03/18 00:00 Laboratory Results 03/03/18 05:20 03/03/18 05:20 ICD10 Worksheet Patient Problems: Problems Problem Status Onset CSF leak Acute Herniated intervertebral disc of lumbar spine Acute Low back pain Acute Lumbar radicular pain Acute
[2018-03-03] MEDS: lamoTRIgine 100 MG TAB PO SCH (07:33)
[2018-03-03] MEDS: DULoxetine 60 MG CAP PO SCH (07:34)
[2018-03-03] MEDS: CETIRIZINE 10 MG TAB PO SCH (07:34)
[2018-03-03] MEDS: GABAPENTIN 400 MG CAP PO SCH ×3 (07:34→21:04)
[2018-03-03] MEDS: FAMOTIDINE 20 MG TAB PO SCH ×2 (07:34→21:03)
[2018-03-03] MEDS: CYCLOBENZAPRINE 10 MG TAB PO SCH ×3 (07:35→21:04)
[2018-03-03] MEDS: amLODIPine BESYLATE 5 MG TAB PO SCH (07:35)
[2018-03-03] MEDS: LOPERAMIDE HCL 2 MG CAP PO PRN ×2 (07:41→21:16)
[2018-03-03] MEDS: SENNOSIDES/DOCUSATE SODIUM TAB PO SCH ×2 (07:49→23:42)
[2018-03-03] MEDS: LIDOCAINE 4%/MENTHOL 1% PATCH TD SCH (08:35)
[2018-03-03] MEDS: ENOXAPARIN 40 MG/0.4 ML SYR SC SCH (08:36)
[2018-03-03] MEDS: DIAZEPAM 5 MG TAB PO PRN ×2 (08:47→21:16)
--- NOTE | 2018-03-03 10:56 | PCMIDPN ---
Assessment/Plan: 1. Epidural abscess with L4/5 diskitis secondary to MSSA with concomitant bacteremia. Status post L4-L5 right-sided laminotomy with drainage of abscess complicated by CSF leak/Staph aureus meningitis: Patient will have a MILTON today for completeness sake. Blood cultures have sterilized, and patient is afebrile. Continue nafcillin as is; safety labs have been stable. Please see below regarding the rash on her back and right lower extremity pain. As noted by my colleagues, the patient will need her PICC line changed at some point in the future. I will likely address this tomorrow. 2. Rash: This is isolated to her back. I am hoping this is a contact dermatitis related to sheets/sweat dermatitis and not the beginnings of a drug eruption. No eosinophilia; liver function tests and creatinine are stable. Will continue to follow. The patient will shower today and continue Zyrtec. 3. Right lower extremity discomfort: Etiology unclear.? Secondary to myositis of the rectus femoris seen radiographically on MRI February 26, verses postoperative. No worrisome alarm symptoms, such as weakness, or tingling/numbness. Afebrile. Depending on clinical course, may need another MRI moving forward to ensure she does not have extension of the abscess requiring repeat washout. Check CK. Over 25 min was spent with this patient today. 03/03/18 11:10 Subjective: Complaining of ongoing right hip discomfort, and discomfort down her right leg. Is able to bear weight; no weakness, or radicular symptoms. MRI 3 days ago showed some myositis of the rectus femoris with no evidence of septic arthritis. Also has an itchy rash on her back that started this morning. Objective: Nafcillin 2 g IV q.4 hours day 7 Afebrile Vital Signs Temp Pulse Resp BP Pulse Ox 36.5 C 58 L 18 141/65 H 95 03/03/18 07:29 03/03/18 07:29 03/03/18 07:29 03/03/18 07:29 03/03/18 07:29 Microbiology 02/28/18 07:30 Gram Stain - Final Cerebral Spinal Fluid CSF Culture - Final Staphylococcus Aureus 02/25/18 16:12 Blood Culture - Final Blood Staphylococcus Aureus 02/23/18 08:16 Gram Stain - Final Other - Eswab 02/23/18 08:16 Gram Stain - Final Vertebral Disc 02/25/18 12:00 Blood Culture - Final Blood Laboratory Results 03/03/18 05:20 03/03/18 05:20 03/02/18 03/03/18 03/04/18 05:59 05:59 05:59 Intake Total 2863 3250 Output Total 2300 1000 Balance 563 2250 C-Reactive Protein 190.7 mg/L (<10.0) H 02/23/18 04:28 Blood cultures February 27 no growth so far February 28 CSF 1+ MSSA - Physical Exam General Appearance: alert, no apparent distress EENT: pharynx normal, No scleral icterus, No thrush Respiratory: lungs clear Cardiac/Chest: regular rate, rhythm, No systolic murmur Extremities: other (PICC line right upper extremity looks fine. Patient has full range of motion of her right hip with no pain.) Abdomen: non-tender, soft Skin: other (Erythematous blanching macular papular rash on her back. No bullae or blisters. Pruritic. The rash is isolated to her back and is no where else on exam today.) ICD10 Worksheet Patient Problems: Problems Problem Status Onset CSF leak Acute Herniated intervertebral disc of lumbar spine Acute Low back pain Acute Lumbar radicular pain Acute
[2018-03-03] MEDS ORDERED: MIDAZOLAM 2 MG/2 ML VIAL ONE (11:46)
[2018-03-03] MEDS ORDERED: fentaNYL 100 MCG/2 ML INJ ONE (11:47)
--- NOTE | 2018-03-03 12:33 | PDPROPOC ---
Sedation Plan of Care Sedation Plan of Care: vital signs stable, mental status noted, patient educated of risks, benefits, alternatives, patient can tolerate sedation ASA Classification: ASA 1 Planned drugs: fentanyl, midazolam Mallampati Score: Class 1 Mallampati Reference Image: Patient passed 3-3-2 rule?: Yes
--- NOTE | 2018-03-03 12:33 | PDHPUP ---
History & Physical Update H&P update statement: This history and physical update is based on an assessment of the patient which was completed after admission or registration (within 24 hours), but prior to the surgery/procedure. H&P update: H&P reviewed & patient examined, no change in patient's condition since H&P completed
[2018-03-03] MEDS ORDERED: PROPOFOL 200 MG/20 ML VIAL ONE (12:57)
--- NOTE | 2018-03-03 13:17 | POSTANESTH ---
Post Anesthetic Evaluation Cardiovascular Status: Similar to Pre-Op Cond Respiratory Status: Similar to Pre-op Cond. Level of Consciousness/Mental Status: Mildly Sleepy, Arousable Pain Control: Adequate, Prn Tx Ordered Nausea/Vomiting Control: Adequate, Prn Tx Ordered Complications Possibly Related to Anesthesia: None Noted
--- NOTE | 2018-03-03 13:17 | PDANEPAE ---
DAR History of Present Illness Patient presents for MILTON ANE Past Medical History - Cardiovascular History Hx Hypertension: Yes Hx Arrhythmias: No Hx Chest Pain: No Hx Coronary Artery / Peripheral Vascular Disease: No Hx CHF / Valvular Disease: No Hx Palpitations: No Cardiovascular History Comment: pt reports she was on diuretic and Ca channel katherine for macular detachment, not HTN. Unclear if she has HTN. - Pulmonary History Hx COPD: No Hx Asthma/Reactive Airway Disease: No Hx Recent Upper Respiratory Infection: No Hx Oxygen in Use at Home: No Hx Sleep Apnea: No Sleep Apnea Screening Result - Last Documented: Positive Pulmonary History Comment: PRONE TO BRONCHITIS WITH URIs - Neurologic History Hx Cerebrovascular Accident: No Hx Seizures: No Hx Dementia: No Neurologic History Comment: MIGRAINES OCCAS - Endocrine History Hx Diabetes: No Hypothyroid: Yes Obesity: moderate Endocrine History Comment: HYPOTHYROID - Renal History Hx Renal Disorders: No - Liver History Hx Hepatic Disorders: No Hepatic History Comment: CHOLECYSTECTOMY - 1998 - PONV - Neurological & Psychiatric Hx Hx Neurological and Psychiatric Disorders: Yes Neurological / Psychiatric History Comment: anxiety/depression - on CYMBALTA - Cancer History Hx Cancer: No - Congenital Disorder History Hx Congenital Disorders: No - GI History Hx Gastrointestinal Disorders: Yes Gastrointestinal History Comment: DIARRHEA. BLOOD TINGED. CRAMPING - Other Health History Other Health History: dry eyes. DRY SKIN W/OCCAS HIVES - Chronic Pain History Chronic Pain: Yes (L KNEE PAIN) - Surgical History Prior Surgeries: CHOLECYSTECTOMY 1998 DAR Review of Systems Review of Systems: ANE Patient History - Allergies Allergies/Adverse Reactions: aspirin Allergy (Verified 02/21/18 07:50) iodine Allergy (Verified 02/21/18 07:50) SOB FOLLOWING AN MRI W/CONTRAST NSAIDS (Non-Steroidal Anti-Inflamma Allergy (Verified 02/21/18 07:50) - Home Medications Home medications: home medication list seen and reviewed Home Medications: Acetaminophen [Tylenol 325mg (*)] 325 mg PO Q6 PRN 02/21/18 [Last Taken 02/20/18 ] Carboxymethylcellulose 1% [Refresh Celluvisc (*)] 1 drop EACHEYE PRN PRN [Last Taken 02/20/18] Cetirizine [ZyrTEC 10 mg (*)] 10 mg PO DAILY 02/21/18 [Last Taken 02/20/18] Duloxetine HCl [Duloxetine HCl] 60 mg PO DAILY 02/21/18 [Last Taken 02/21/18] Herbals/Supplements -Info Only 1 ea PO DAILY 02/21/18 [Last Taken Unknown] Levothyroxine Sodium [Levothyroxine Sodium] 200 mcg PO DAILY@02/21/18 [Last Taken 02/21/18] Loperamide HCl [Imodium 2 mg (*)] 2 mg PO PRN PRN 02/21/18 [Last Taken 02/20/18] Triamterene/Hctz 75/50 [Maxzide 75-50 mg Tab (*)] 1 tab PO DAILY 02/21/18 [Last Taken 02/17/18] amLODIPine BESYLATE [Amlodipine Besylate] 5 mg PO DAILY 02/21/18 [Last Taken 12/31] lamoTRIgine [Lamotrigine] 200 mg PO DAILY 02/21/18 [Last Taken 02/21/18] - NPO status NPO Status: no food or drink >8 hours NPO Since - Liquids (Date): 02/23/18 NPO Since - Liquids (Time): 00:00 NPO Since - Solids (Date): 02/23/18 NPO Since - Solids (Time): 00:00 - Anes Hx Anes Hx: no prior problems - Smoking Hx Smoking Status: Never smoked - Family Anes Hx Family Hx Anesthesia Complications: NEG ANE Labs/Vital Signs - Labs Result Diagrams: 03/03/18 05:20 03/03/18 05:20 - Vital Signs Blood Pressure: 137/86 Heart Rate: 72 Respiratory Rate: 14 O2 Sat (%): 97 Height: 162.56 cm Weight: 97.522 kg ANE Physical Exam - Airway Neck exam: decreased ROM Mallampati Score: Unable to assesss - Pulmonary Pulmonary: no respiratory distress - Cardiovascular Cardiovascular: regular rate and rhythym - ASA Status ASA Status: II ANE Anesthesia Plan Anesthesia Plan: GA with mask (rba discussed)
--- NOTE | 2018-03-03 13:48 | PDCARTEE ---
CAR MILTON CAR MILTON: PROCEDURE: MILTON INDICATIONS: Rule out vegetation with recent bacteremia PROCEDURE DETAILS: After initial consents for sedation and MILTON were obtained, we attempted combination of fentanyl and versed (25/3 mg) without success given the degree of gag response noted. Rather than simply increasing the IV fentanyl/versed, we contacted anesthesia (while patient was still moderately coherent), and discussed the use of propofol for sedation. The patient was able to voice her desire to have this sedation performed. This was felt to be a safer option for the patient with closer monitoring of vitals (given anesthesia presence) with a deeper, acute, degree of sedation achieved. Consent for sedation was already signed, but anesthesia cosigned this consent after speaking with the patient. After induction of propofol, the MILTON probe was placed without difficulty and standard views were obtained. Preliminary report: (1) Normal LVEF was noted (2) No wall motion abnormalities were noted (3) Grossly normal atrial dimensions (4) Mild to moderate mitral regurgitation was noted - there was thickening of the posterior leaflet of the mitral valve, but no clear vegetation was appreciated (5) Mild aortic insufficiency with mild sclerosis, but no stenosis (6) Mild tricuspid regurgitation (7) Grossly normal pulmonic valve (8) Bubble contrast injection without right to left shunting noted (9) There was an echodensity to the mid atrial septal wall. This did not appear to be a vegetation, but it's presence raises concerns with the history the patient has. (10) There was "smoke" to the left atrium (consistent with slower flow) (11) No thrombus was noted to the left atrial appendage (12) No atheroma was noted to the aorta no complications were appreciated with this procedure the patient recovered without incident
--- NOTE | 2018-03-03 15:25 | HOSPPROG ---
Hospitalist Progress Note Assessment/Plan: #MSSA bacteremia with epidural abscess: suspect from skin-picking -blood cultures 02/27 clear. CSF drain likely colonization. Cont nafcillin gtt, 8 wks. -PICC line needs to be exchanged in next few days since placed during bacteremia -ID following -Will have MILTON today to r/o vegetations #Right groin pain: gabapentin, valium. Myositis/fascitis rectus femoris, no abscess. #Depression/anxiety: cont home meds #Constipation: had BM. Cont bowel regimen #Obesity #HTN: home meds #Leukocytosis: trending down #Diet: regular #DVT ppx: SCDs, #Disp:cont inpatient admission for lumbar drain, IV abx. Plan: -cont Nafcillin -MILTON today -pain mgmt -ok to transfer to floor new patient to this provider. records reviewed. Labs unremarkable today. Subjective: will have MILTON today. no cp or sob. no n/v. Objective: Vital Signs Temp Pulse Resp BP Pulse Ox 36.4 C 76 14 133/64 H 93 03/03/18 11:36 03/03/18 14:39 03/03/18 14:39 03/03/18 14:39 03/03/18 14:39 Microbiology 02/23/18 08:16 Gram Stain - Final Other - Eswab 02/23/18 08:16 Gram Stain - Final Vertebral Disc 02/28/18 07:30 Gram Stain - Final Cerebral Spinal Fluid CSF Culture - Final Staphylococcus Aureus 02/25/18 16:12 Blood Culture - Final Blood Staphylococcus Aureus 02/25/18 12:00 Blood Culture - Final Blood Laboratory Results 03/03/18 05:20 03/03/18 05:20 03/02/18 03/03/18 03/04/18 05:59 05:59 05:59 Intake Total 2863 3250 60 Output Total 2300 1000 Balance 563 2250 60 PT 13.6 SEC (12.0-15.0) 02/22/18 04:28 INR 1.02 (0.83-1.16) 02/22/18 04:28 - Physical Exam Constitutional: no apparent distress Eyes: PERRL, EOMI Ears, Nose, Mouth, Throat: moist mucous membranes, hearing normal Cardiovascular: regular rate and rhythym, No edema Respiratory: no respiratory distress, no rales or rhonchi, clear to auscultation Gastrointestinal: normoactive bowel sounds Skin: warm Neurologic: AAOx3 Psychiatric: interacting appropriately, not anxious, not encephalopathic Lymph, Heme, Immunologic: No petechiae ICD10 Worksheet Patient Problems: Problems Problem Status Onset CSF leak Acute Herniated intervertebral disc of lumbar spine Acute Low back pain Acute Lumbar radicular pain Acute
[2018-03-03 15:54] LABS: CREATINE KINASE < 20 IU/L (0-156)
--- NOTE | 2018-03-03 16:09 | ASMTCMCOM ---
CM Note CM Note Notes: Pt does not qualify for inpatient rehab, referral sent to [facility] in [facility]. CM to follow. Date Signed: 03/03/2018 04:09 PM Electronically Signed By:VALERIE Franco
[2018-03-03] MEDS: diphenhydrAMINE 25 MG CAP PO PRN (21:04)
[2018-03-03] MEDS: PATCH REMOVAL 1 EA PATCH TD SCH (23:41)
[2018-03-04] MEDS: NAFCILLIN SODIUM 2 GM in NS 100 ML IV SCH ×3 (01:15→10:43)
[2018-03-04] MEDS: oxyCODONE IR 5 MG TAB PO PRN (01:30)
[2018-03-04] MEDS: ACETAMINOPHEN 500 MG TAB PO SCH ×3 (06:31→23:00)
[2018-03-04] MEDS: diphenhydrAMINE 25 MG CAP PO PRN ×3 (06:33→21:17)
[2018-03-04] MEDS: LEVOTHYROXINE 200 MCG TAB PO SCH (06:33)
--- NOTE | 2018-03-04 08:16 | NEUSURGPN ---
Assessment/Plan: Assessment: Ongoing right groin pain - stat. no new weakness or tingling. MSSA bacteremia with epidural abscess, status post I&D Plan: -LD drain removed on 03/01 -Most recent blood cx are NGTD x 36 hours -Cont nafcillin gtt, 8 wks. -Right groin pain likely due to myositis seen on right hip MRI. Using gabapentin, valium. Pt states this is improved somewhat and has shifted to outer hip. Discussed could be related to nerve irritation, musculoskeletal, bursitis. Continue to monitor. -MRI Lspine shows arachnoiditis and post op changes. -PT/OT as tolerated -Monitor drain site - currently dry. daily dressing changes -Will need post op visit with Dr Gusman in 2 weeks for suture removal -MILTON done with no clear e/o vegitation -Dispo: ok to for DC from NS standpoint -NS will sign off and follow peripherally if OK with primary team. Please call NS with any issues. -D/w Dr Gusman -Call NS with any issues Subjective: Pt resting in bed, walked a lot yesterday. C/o outer hip pain with movement that is new. Groin pain improved. Objective: AAOx3 NAD VSS MAEx4 Motor 5/5 BLE +LT Incision dressed cdi Urinary Catheter in Place: No Catheter Insertion Date: 02/23/18 - Physician Discussed Patient with Dr.: Gusman Neurosurgery Physical Exam - Vitals, I&O, Labs I and O 03/03/18 03/04/18 03/05/18 05:59 05:59 05:59 Intake Total 3250 461 1336 Output Total 1000 Balance 2250 461 1336 Weight 97.522 kg Intake: Oral (ml) 2700 360 600 IV Intake (ml) 550 511 IV Infused (ml) 101 225 Nafcillin Sodium 2 gm In 101 225 Ns 100 ml @ 100 mls/hr IV Q4HRS [facility] Rx#:[id number] Output: Urine (ml) 1000 Toilet 1000 Other: Intake Quantity Yes Sufficient Number of Voids Toilet 2 2 1 Number of Stools Toilet 2 Microbiology 02/23/18 08:16 Gram Stain - Final Other - Eswab 02/23/18 08:16 Gram Stain - Final Vertebral Disc 02/28/18 07:30 Gram Stain - Final Cerebral Spinal Fluid CSF Culture - Final Staphylococcus Aureus Vital Signs Temp Pulse Resp BP Pulse Ox 36.5 C 60 18 114/66 95 03/04/18 07:27 03/04/18 07:27 03/04/18 07:27 03/04/18 07:27 03/04/18 07:27 Laboratory Results 03/03/18 05:20 03/03/18 05:20 ICD10 Worksheet Patient Problems: Problems Problem Status Onset CSF leak Acute Herniated intervertebral disc of lumbar spine Acute Low back pain Acute Lumbar radicular pain Acute
[2018-03-04] MEDS: CETIRIZINE 10 MG TAB PO SCH (08:30)
[2018-03-04] MEDS: DULoxetine 60 MG CAP PO SCH (08:30)
[2018-03-04] MEDS: lamoTRIgine 100 MG TAB PO SCH (08:30)
[2018-03-04] MEDS: FAMOTIDINE 20 MG TAB PO SCH ×2 (08:30→21:17)
[2018-03-04] MEDS: amLODIPine BESYLATE 5 MG TAB PO SCH (08:31)
[2018-03-04] MEDS: SENNOSIDES/DOCUSATE SODIUM TAB PO SCH ×2 (08:31→23:33)
[2018-03-04] MEDS: GABAPENTIN 400 MG CAP PO SCH ×3 (08:31→21:17)
[2018-03-04] MEDS: CYCLOBENZAPRINE 10 MG TAB PO SCH ×3 (08:31→21:17)
[2018-03-04] MEDS: LIDOCAINE 4%/MENTHOL 1% PATCH TD SCH (08:32)
[2018-03-04] MEDS: ENOXAPARIN 40 MG/0.4 ML SYR SC SCH (08:35)
--- NOTE | 2018-03-04 09:05 | ECHO ---
[email or web address] [address] [address] Main: [phone] Fax: Transesophageal Echocardiography Name: RICK SYKES MR#: [id number] Study Date: 03/03/2018 Study Time: 12:19 PM Date of : 1960 Age: 57 year(s) Height: ( ) Weight: ( ) BSA: Gender: Female Examination: MILTON Indication: Eval for vegetation Image Quality: Contrast: Requested by: Rich Christiansen Heart Rate: Rhythm: BP: 143 mmHg/83 mmHg Procedure Staff [place] Nurse: Brandi Ordaz RDCS Reading Physician: Rich Christiansen MD Requesting Provider: MILTON Exam Details Conclusions: An agitated saline study was performed and was negative for intracardiac shunting. The mitral valve is normal in appearance. Mild mitral valve regurgitation is present. The aortic valve is tri-leaflet. Mild aortic valve regurgitation is present. The tricuspid valve appears normal. The pulmonic valve is normal in appearance. Hyperechoic structure visualized on the atrial septal wall.. Measurements: Chambers Valvular Assessment AV/MV Valvular Assessment TV/PV Normal Normal Normal Name Value Range Name Value Range Name Value Range Additional Measurements: Findings: Left Atrium: An agitated saline study was performed and was negative for intracardiac shunting. Mitral Valve: The mitral valve is normal in appearance. Mild mitral valve regurgitation is present. Aortic Valve: Patient: RICK SYKES Study Date: 03/03/2018 Page 1 of 2 12:19 PM The aortic valve is tri-leaflet. Mild aortic valve regurgitation is present. Tricuspid Valve: The tricuspid valve appears normal. Pulmonic Valve: The pulmonic valve is normal in appearance. Exam Comments: Hyperechoic structure visualized on the atrial septal wall.. l1n (No Signature Object) Patient: RICK SYKES Study Date: 03/03/2018 Page 2 of 2 12:19 PM [id number]
[2018-03-04] MEDS ORDERED: ALTEPLASE 2 MG VIAL IVP PRN (11:39)
--- NOTE | 2018-03-04 12:01 | PCMIDPN ---
Assessment/Plan: 1. Epidural abscess with L4/5 diskitis secondary to MSSA with concomitant bacteremia. Status post L4-L5 right-sided laminotomy with drainage of abscess complicated by CSF leak/Staph aureus meningitis: Unfortunately, development of drug eruption as outlined below requires change in antibiotics. 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 Hopefully, can treat her Staph aureus meningitis with 14 days of vancomycin therapy (potential antibiotic switch date March 14 given recent positive CSF culture on February 28) , then change to intravenous cefazolin, 2 g IV q.8 hours for ongoing treatment of epidural abscess and diskitis. She will need 8 weeks of therapy in total, tentative stop date April 20. Change PICC line today. 2. Rash: Patient clearly has a spreading morbilliform rash consistent with drug eruption from nafcillin. No evidence of systemic hypersensitivity at this point in time. Discontinue nafcillin and changed to vancomycin as outlined above. 3. Right lower extremity/hip discomfort: Much better today. Continue to follow clinically. No need for repeat imaging right now. Case discussed with hospitalist today, and case management. Patient will not be discharged this weekend. Over 35 min spent with this patient today. Subjective: Says her right lower extremity and hip pain is much better. States"I am having a good day." Unfortunately, her rash is worsening and is extremely pruritic. She now has extension of the rash to her sides of her abdomen and neck. No lesions in her mucous membranes. Objective: Nafcillin 2 g IV q.4 hours day 8 Afebrile Vital Signs Temp Pulse Resp BP Pulse Ox 36.5 C 60 18 114/66 95 03/04/18 07:27 03/04/18 07:27 03/04/18 07:27 03/04/18 08:31 03/04/18 07:27 Microbiology 02/23/18 08:16 Gram Stain - Final Other - Eswab 02/23/18 08:16 Gram Stain - Final Vertebral Disc 02/28/18 07:30 Gram Stain - Final Cerebral Spinal Fluid CSF Culture - Final Staphylococcus Aureus Laboratory Results 03/03/18 05:20 03/03/18 05:20 07/19/18 07/20/18 07/21/18 05:59 05:59 05:59 Intake Total 3250 461 1336 Output Total 1000 250 Balance 2250 461 1086 C-Reactive Protein 190.7 mg/L (<10.0) H 02/23/18 04:28 Blood cultures February 27 no growth CSF February 28 Staph aureus - Physical Exam General Appearance: alert, no apparent distress EENT: pharynx normal, No thrush Respiratory: lungs clear Cardiac/Chest: regular rate, rhythm Extremities: other (PICC line right upper extremity looks fine) Abdomen: non-tender, soft Skin: other (Diffuse erythematous morbilliform rash with areas of confluence that are blanching across her back with now extension to the buttocks and abdomen as well as the sides of her neck. No urticaria. No bullae.) ICD10 Worksheet Patient Problems: Problems Problem Status Onset CSF leak Acute Herniated intervertebral disc of lumbar spine Acute Low back pain Acute Lumbar radicular pain Acute
[2018-03-04] MEDS ORDERED: VANCOMYCIN 1.5 GM in NS 250 ML IV SCH (13:00)
[2018-03-04] MEDS: LOPERAMIDE HCL 2 MG CAP PO PRN (13:05)
[2018-03-04] MEDS: DIAZEPAM 5 MG TAB PO PRN (13:53)
--- NOTE | 2018-03-04 14:05 | WOCRNPDOC ---
WOCRN Advanced Assessment Note - Skin Integrity Problem, Advanced Assess Left Thigh Pressure Injury Dressing Type: Open to Air Exudate Amount: None Annie Wound Tissue: Blanching Wound Bed Constitution: Red/[place] - Non Granular Tissue (90%), De-roofed Serous Blister (10%) Site Odor: None Site Measurement - Head-to-Toe Length X Width X Depth (cm): Area of non- blanching erythema 21x1.5x0.1. De-roofed blister is 2x1x0.1 Pressure Injury Stage: Stage 2 Pressure Injury Present on Admit: No Skin Integrity Problem Comment: Stage 2 pressure injury from HEATHER hose that runs from the left medial thigh posteriorally to the left lateral thigh. There is a deroofed blister on the medial end of the wound that patient states "popped" while she was taking a shower. Patient is not wearing HEATHER hose at this time. Wound care will not be following this patient. Please reconsult PRN.
--- NOTE | 2018-03-04 14:09 | ASMTCMCOM ---
CM Note CM Note Notes: Spoke with pt at length she is very distressed about current circumstances with employer/work comp. 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 [facility] is pt SNF choice, they are assessing if they can take pt. Annabelle with [facility] reports work comp is active and they would be the payer for SNF, Annabelle met with pt today. [facility] would not have been able to accept pt on Nafcillin IV antibiotic due to cost but today the Nafcillin was d/c as pt is allergic. Pt also considering going home. Today PT does rec home, OT still rec SNF. Pt will need 6-8 weeks of IV antibiotics. 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 Pt wants to see how she progresses over the next few days to see if she can go home. CM will continue to follow. D/c plan of care: [facility] vs. Home with IV infusion co and [facility] Date Signed: 03/04/2018 02:09 PM Electronically Signed By:VALERIE Franco
[2018-03-04] MEDS ORDERED: VANCOMYCIN 1.25 GM in D5W 250 ML IV ONE (15:00)
--- NOTE | 2018-03-04 15:30 | HOSPPROG ---
Hospitalist Progress Note Assessment/Plan: Patient is a 57-year-old female with history of depression, anxiety and recent eye surgery presenting with acute back pain and found to have csf leak, discitis /epidural abscess and MSSA bacteremia #MSSA bacteremia with epidural abscess: suspect from skin-picking -blood cultures 02/27 clear. CSF drain likely colonization, sp I&D and drain out. Has been on nafcillin but today noted to have drug rash and changed to vancomycin. -PICC line needs to be exchanged in next few days since placed during bacteremia -ID following -MILTON without clear vegetation but echodensity to mid atrial septal wall #Right groin pain: gabapentin, valium. Myositis/fascitis rectus femoris, no abscess. #Depression/anxiety: cont home meds #Constipation: had BM. Cont bowel regimen #Obesity #HTN: home meds #Leukocytosis: trending down #Diet: regular #DVT ppx: SCDs, IP status. Care plan reviewed with ID including changing abx. Subjective: no significant overnight events, patient currently feeling well, has rash all over her back Objective: Vital Signs Temp Pulse Resp BP Pulse Ox 36.5 C 60 18 114/66 95 03/04/18 07:27 03/04/18 07:27 03/04/18 07:27 03/04/18 08:31 03/04/18 07:27 Microbiology 02/23/18 08:16 Gram Stain - Final Other - Eswab 02/23/18 08:16 Gram Stain - Final Vertebral Disc 02/28/18 07:30 Gram Stain - Final Cerebral Spinal Fluid CSF Culture - Final Staphylococcus Aureus Laboratory Results 03/03/18 05:20 03/03/18 05:20 03/03/18 03/04/18 03/05/18 05:59 05:59 05:59 Intake Total 3250 461 2336 Output Total 1000 250 Balance 2250 461 2086 PT 13.6 SEC (12.0-15.0) 02/22/18 04:28 INR 1.02 (0.83-1.16) 02/22/18 04:28 awake alert anicteric op clear rrr no mrg cta b soft nt nd no cce warm dry diffuse maculopapular rash on his back/buttocks/wrapping around to abdomen oriented ICD10 Worksheet Patient Problems: Problems Problem Status Onset Low back pain Acute Herniated intervertebral disc of lumbar spine Acute CSF leak Acute Lumbar radicular pain Acute
[2018-03-04] MEDS: VANCOMYCIN IV SCH (17:15)
[2018-03-04] MEDS: D5W IV SCH (17:15)
[2018-03-04] MEDS: PATCH REMOVAL 1 EA PATCH TD SCH (23:33)
[2018-03-05] MEDS: LEVOTHYROXINE 200 MCG TAB PO SCH (06:13)
[2018-03-05] MEDS: ACETAMINOPHEN 500 MG TAB PO SCH ×3 (06:13→22:12)
--- NOTE | 2018-03-05 08:20 | HOSPPROG ---
Hospitalist Progress Note Assessment/Plan: Patient is a 57-year-old female with history of depression, anxiety and recent eye surgery presenting with acute back pain and found to have csf leak, discitis /epidural abscess and MSSA bacteremia #MSSA bacteremia with epidural abscess with L4/5 discitis: suspect from skin- picking -s/p right sided laminotomy w drainage of abscess complicated by a CSF leak -blood cultures 02/27 clear. CSF drain likely colonization, sp I&D and drain out. Has been on nafcillin but today noted to have drug rash and changed to vancomycin. -PICC was changed on 03/04/18 -MILTON without clear vegetation but echodensity to mid atrial septal wall *Rash -secondary to nafcillin -improving, on Benadryl. #Right groin pain: gabapentin, Valium. Myositis/fascitis rectus femoris, no abscess. #left toe pain -bumped her toe earlier during her admission, no redness, able to bend #Depression/anxiety: cont home meds #Constipation: had BM. Cont bowel regimen #Obesity #HTN: home meds #Leukocytosis: trending down #Diet: regular #DVT ppx: SCDs, LMWH (patient has been declining this) #plan: to stay in hospital through the weekend, may need SNF Subjective: Misti is c/o some toe pain, left great toe, bumped it during her hospital stay. Objective: Vital Signs Temp Pulse Resp BP Pulse Ox 36.3 C 65 15 134/63 H 96 03/05/18 07:23 03/05/18 07:23 03/05/18 07:23 03/05/18 07:23 03/05/18 07:23 Microbiology 02/27/18 14:15 Blood Culture - Final Blood 02/27/18 11:35 Blood Culture - Final Blood 02/23/18 08:16 Gram Stain - Final Other - Eswab 02/23/18 08:16 Gram Stain - Final Vertebral Disc Laboratory Results 03/03/18 05:20 03/03/18 05:20 03/04/18 03/05/18 03/06/18 05:59 05:59 05:59 Intake Total 461 3636 Output Total 250 Balance 461 3386 PT 13.6 SEC (12.0-15.0) 02/22/18 04:28 INR 1.02 (0.83-1.16) 02/22/18 04:28 - Physical Exam Constitutional: obese, uncomfortable Eyes: PERRL Ears, Nose, Mouth, Throat: hearing normal Cardiovascular: regular rate and rhythym Respiratory: no respiratory distress Gastrointestinal: normoactive bowel sounds Skin: warm, other (rash on back area-reddened, warm) Musculoskeletal: generalized weakness Neurologic: AAOx3 Psychiatric: interacting appropriately, not anxious ICD10 Worksheet Patient Problems: Problems Problem Status Onset CSF leak Acute Herniated intervertebral disc of lumbar spine Acute Low back pain Acute Lumbar radicular pain Acute
[2018-03-05] MEDS: DULoxetine 60 MG CAP PO SCH (08:52)
[2018-03-05] MEDS: diphenhydrAMINE 25 MG CAP PO PRN (08:52)
[2018-03-05] MEDS: FAMOTIDINE 20 MG TAB PO SCH ×2 (08:52→20:31)
[2018-03-05] MEDS: amLODIPine BESYLATE 5 MG TAB PO SCH (08:52)
[2018-03-05] MEDS: GABAPENTIN 400 MG CAP PO SCH ×3 (08:52→22:12)
[2018-03-05] MEDS: CYCLOBENZAPRINE 10 MG TAB PO SCH ×3 (08:52→22:12)
[2018-03-05] MEDS: lamoTRIgine 100 MG TAB PO SCH (08:52)
[2018-03-05] MEDS: CETIRIZINE 10 MG TAB PO SCH (08:53)
[2018-03-05] MEDS: LOPERAMIDE HCL 2 MG CAP PO PRN ×2 (08:53→12:38)
[2018-03-05] MEDS: ENOXAPARIN 40 MG/0.4 ML SYR SC SCH (08:59)
[2018-03-05] MEDS: SENNOSIDES/DOCUSATE SODIUM TAB PO SCH ×2 (09:00→20:43)
[2018-03-05] MEDS: LIDOCAINE 4%/MENTHOL 1% PATCH TD SCH ×2 (09:01→14:10)
--- NOTE | 2018-03-05 12:18 | PCMIDPN ---
Assessment/Plan: Assessment: MSSA bacteremia with epidural abscess. Patient is status post epidural abscess debridement. She is changed from IV nafcillin to IV vancomycin secondary to a morbilliform rash. This rash is resolving presently. Most recent blood cultures are negative. Patient is feeling clinically much improved. Plan: 1. Continue IV vancomycin at present dose. 2. Check a random vancomycin level this afternoon. 3. Follow clinical course. 03/05/18 12:15 Subjective: Patient is resting in her chair in the hospital room. She states she feels much better. She states that her rash is resolving and she does not itchy more. Tolerating the vancomycin infusion without issue. Objective: Vancomycin drip # 1 Vital Signs Temp Pulse Resp BP Pulse Ox 36.3 C 65 15 134/63 H 96 03/05/18 07:23 03/05/18 07:23 03/05/18 07:23 03/05/18 07:23 03/05/18 07:23 Microbiology 02/27/18 14:15 Blood Culture - Final Blood 02/27/18 11:35 Blood Culture - Final Blood 02/23/18 08:16 Gram Stain - Final Other - Eswab 02/23/18 08:16 Gram Stain - Final Vertebral Disc Laboratory Results 03/03/18 05:20 03/03/18 05:20 03/04/18 03/05/18 03/06/18 05:59 05:59 05:59 Intake Total 461 3636 500 Output Total 250 Balance 461 3386 500 C-Reactive Protein 190.7 mg/L (<10.0) H 02/23/18 04:28 - Physical Exam General Appearance: WD/WN, alert, no apparent distress, non-toxic Respiratory: lungs clear, normal breath sounds, No respiratory distress Cardiac/Chest: regular rate, rhythm, No tachycardia Skin: normal color, warm/dry, No rash Neuro/Psych: alert, normal mood/affect, oriented x 3 ICD10 Worksheet Patient Problems: Problems Problem Status Onset CSF leak Acute Herniated intervertebral disc of lumbar spine Acute Low back pain Acute Lumbar radicular pain Acute
--- NOTE | 2018-03-05 12:23 | ASMTCMCOM ---
CM Note CM Note Notes: CM discussed case with Martine Sexton SALES ASSOCIATE KEY HOLDER, recommends SNF which OT recommends as well. CM met with patient, she states she feels she has shown great improvement in the past 48 hours and does not think SNF is necessary. She shares she does understand she and her medical team are waiting to see how the infection responds to the antibiotics. The patient states concern around insurance coverage through her employer, states she specifically has not talked with [employer] the insurer and called [facility] to discuss her concerns yesterday. She states if she is to go to a SNF, she is adamant [employer] should be the payer. She is open to [facility] if necessary, though would prefer [facility]. CM to send referral per patient request stating payer must be [employer] and also states understanding likely does not have any openings. D/C date TBD. CM to follow. Current Discharge Plan: TBD Date Signed: 03/05/2018 12:22 PM Electronically Signed By:Margi Harris
[2018-03-05] MEDS: oxyCODONE IR 5 MG TAB PO PRN ×2 (14:08→19:41)
[2018-03-05 19:03] LABS: PLATELET COUNT 422 10^3/uL (150-400)
[2018-03-05] MEDS: DIAZEPAM 5 MG TAB PO PRN (19:41)
[2018-03-05] MEDS: D5W IV SCH (19:41)
[2018-03-05] MEDS: VANCOMYCIN IV SCH (19:41)
[2018-03-05] MEDS: PATCH REMOVAL 1 EA PATCH TD SCH (20:36)
[2018-03-06] MEDS: ACETAMINOPHEN 500 MG TAB PO SCH ×3 (05:33→21:31)
[2018-03-06] MEDS: LEVOTHYROXINE 200 MCG TAB PO SCH (05:33)
[2018-03-06] MEDS: FAMOTIDINE 20 MG TAB PO SCH ×2 (09:02→21:32)
[2018-03-06] MEDS: CYCLOBENZAPRINE 10 MG TAB PO SCH ×3 (09:02→21:32)
[2018-03-06] MEDS: GABAPENTIN 400 MG CAP PO SCH ×3 (09:02→21:32)
[2018-03-06] MEDS: CETIRIZINE 10 MG TAB PO SCH (09:02)
[2018-03-06] MEDS: DULoxetine 60 MG CAP PO SCH (09:02)
[2018-03-06] MEDS: amLODIPine BESYLATE 5 MG TAB PO SCH (09:02)
[2018-03-06] MEDS: LIDOCAINE 4%/MENTHOL 1% PATCH TD SCH (09:07)
[2018-03-06] MEDS: SENNOSIDES/DOCUSATE SODIUM TAB PO SCH ×3 (09:07→21:32)
[2018-03-06] MEDS: lamoTRIgine 100 MG TAB PO SCH (09:07)
[2018-03-06] MEDS: LOPERAMIDE HCL 2 MG CAP PO PRN (09:19)
[2018-03-06] MEDS: ENOXAPARIN 40 MG/0.4 ML SYR SC SCH (11:10)
--- NOTE | 2018-03-06 11:19 | PCMIDPN ---
Assessment/Plan: 1. Epidural abscess with L4/5 diskitis secondary to MSSA with concomitant bacteremia. Status post L4-L5 right-sided laminotomy with drainage of abscess complicated by CSF leak/Staph aureus meningitis: Random vancomycin level on continuous infusion therapy is too low given FAMILY COACH involvement. Spoke to pharmacy; apparently there were problems drawing the level last night, and vancomycin was put on hold, and level may be erroneously low. Therefore, will repeat level tonight at 1700 and make changes accordingly. As per my prior note, will continue continuous infusion vancomycin to complete 14 days for Staph aureus meningitis (switch date March 14t h), then switch to cefazolin 2 g IV q.8 hours to complete 8 weeks of therapy for her epidural abscess and osteomyelitis, tentative stop date April 20. Of note, the PICC line has been changed. 2. Rash secondary to nafcillin: Markedly better. Serum creatinine stable, LFTs stable. Eosinophils slightly up which is not a surprise. 3. Right lower extremity/hip discomfort: If she has another bout of severe discomfort, would proceed with repeat MRI. Over 25 min spent with this patient today. 03/06/18 11:12 Subjective: Patient states she had a"horrible"day yesterday. She states she got up to walk with physical therapy, and when she returned she felt like a nail was going through her right groin. She states that the pain was quite severe, but not associated with any tingling, numbness or loss of strength. This morning, she feels much better and states that the pain is gone. She denies any headache, stiff neck or other. The rash is much better. Objective: Vancomycin via continuous infusion 3.5 g daily day 2. (Antibiotics day 10) Afebrile Vital Signs Temp Pulse Resp BP Pulse Ox 36.4 C 61 16 135/72 H 92 03/06/18 08:00 03/06/18 08:00 03/06/18 08:00 03/06/18 08:00 03/06/18 08:00 Microbiology 02/26/18 06:30 Gram Stain - Final Cerebral Spinal Fluid CSF Culture - Final Staphylococcus Aureus 02/27/18 14:15 Blood Culture - Final Blood 02/27/18 11:35 Blood Culture - Final Blood Laboratory Results 03/05/18 18:49 03/05/18 18:49 0703/06/18 03/07/18 05:59 05:59 05:59 Intake Total 3636 3520 100 Output Total 250 500 Balance 3386 3520 -400 C-Reactive Protein 190.7 mg/L (<10.0) H 02/23/18 04:28 Laboratory Tests 03/03/18 03/03/18 03/05/18 05:20 05:20 18:49 Absolute Eos (auto) Creatinine 0.7 AST 40 ALT 84 H 53 H Creatine Kinase < 20 Random Vancomycin 18.9 03/05/18 18:49 Absolute Eos (auto) 0.43 H Creatinine AST ALT Creatine Kinase Random Vancomycin - Physical Exam General Appearance: alert, no apparent distress EENT: pharynx normal, No thrush Respiratory: lungs clear Cardiac/Chest: regular rate, rhythm, No systolic murmur Extremities: other (PICC line right upper extremity with some bloody debris around the base, no active bleeding. Full strength right lower extremity with no sensory loss.) Abdomen: non-tender, soft Skin: other (Pinkish blanching erythema that is confluent on her back, and patches on her abdomen and right groin. Rash is markedly better overall, with decrease beet red erythema, and overall appears to be fading. No mucous membrane lesions.) ICD10 Worksheet Patient Problems: Problems Problem Status Onset CSF leak Acute Herniated intervertebral disc of lumbar spine Acute Low back pain Acute Lumbar radicular pain Acute
--- NOTE | 2018-03-06 14:12 | HOSPPROG ---
Hospitalist Progress Note Assessment/Plan: Patient is a 57-year-old female with history of depression, anxiety and recent eye surgery presenting with acute back pain and found to have csf leak, discitis /epidural abscess and MSSA bacteremia #MSSA bacteremia with epidural abscess with L4/5 discitis: suspect from skin- picking -s/p right sided laminotomy w drainage of abscess complicated by a CSF leak -blood cultures 02/27 clear. CSF drain likely colonization, sp I&D and drain out. Has been on nafcillin but today noted to have drug rash and changed to vancomycin. -PICC was changed on 03/04/18 -MILTON without clear vegetation but echodensity to mid atrial septal wall *Rash -secondary to nafcillin -improving, on Benadryl. #Right groin pain: gabapentin, Valium. Myositis/fascitis rectus femoris, no abscess. -patient became very anxious yesterday, reviewed w Dr Mario and if this occurs again will get an MRI #left toe pain -bumped her toe earlier during her admission, no redness, able to bend #Depression/anxiety: cont home meds #Constipation: had BM. Cont bowel regimen #Obesity #HTN: home meds #Leukocytosis: trending down #Diet: regular #DVT ppx: SCDs, LMWH (patient has been declining this) #plan: to stay in hospital through the weekend, may need SNF/ CM to talk w her about placement Subjective: Misti is feeling well today, no complaints. Objective: Vital Signs Temp Pulse Resp BP Pulse Ox 36.4 C 61 16 135/72 H 92 03/06/18 08:00 03/06/18 08:00 03/06/18 08:00 03/06/18 08:00 03/06/18 08:00 Microbiology 02/26/18 06:30 Gram Stain - Final Cerebral Spinal Fluid CSF Culture - Final Staphylococcus Aureus Laboratory Results 03/05/18 18:49 03/05/18 18:49 03/05/18 03/06/18 03/07/18 05:59 05:59 05:59 Intake Total 3636 3520 100 Output Total 250 500 Balance 3386 3520 -400 PT 13.6 SEC (12.0-15.0) 02/22/18 04:28 INR 1.02 (0.83-1.16) 02/22/18 04:28 - Physical Exam Constitutional: no apparent distress, not in pain, obese Eyes: PERRL Ears, Nose, Mouth, Throat: hearing normal Respiratory: no respiratory distress Gastrointestinal: normoactive bowel sounds Skin: warm Musculoskeletal: generalized weakness Neurologic: AAOx3 ICD10 Worksheet Patient Problems: Problems Problem Status Onset CSF leak Acute Herniated intervertebral disc of lumbar spine Acute Low back pain Acute Lumbar radicular pain Acute
[2018-03-06] MEDS: VANCOMYCIN IV SCH (18:26)
[2018-03-06] MEDS: D5W IV SCH (18:26)
[2018-03-06] MEDS: PATCH REMOVAL 1 EA PATCH TD SCH (21:32)
[2018-03-07] MEDS: LEVOTHYROXINE 200 MCG TAB PO SCH (05:50)
[2018-03-07] MEDS: ACETAMINOPHEN 500 MG TAB PO SCH ×3 (05:50→20:57)
--- NOTE | 2018-03-07 09:02 | HOSPPROG ---
Hospitalist Progress Note Assessment/Plan: Patient is a 57-year-old female with history of depression, anxiety and recent eye surgery presenting with acute back pain and found to have csf leak, discitis /epidural abscess and MSSA bacteremia #MSSA bacteremia with epidural abscess with L4/5 discitis: suspect from skin- picking -s/p right sided laminotomy w drainage of abscess complicated by a CSF leak -blood cultures 02/27 clear. CSF drain likely colonization, sp I&D and drain out. Has been on nafcillin but today noted to have drug rash and changed to vancomycin. -PICC was changed on 03/04/18 -MILTON without clear vegetation but echodensity to mid atrial septal wall *Rash -secondary to nafcillin -resolved #Right groin pain: gabapentin, Valium. Myositis/fascitis rectus femoris, no abscess. -patient is tearful that the pain was out of control Wednesday and worsened last night -get an MRI today #left toe pain -no further complaints #Depression/anxiety: cont home meds #Constipation: had BM. Cont bowel regimen #Obesity #HTN: home meds #Leukocytosis: trending down #Diet: regular #DVT ppx: SCDs, LMWH (patient has been declining this) #plan: MRI today, also patient is tearful about her dog, won't be going home for awhile, will be going to rehab. 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 Subjective: Misti is tearful about right hip and right groin pain, worried about her dog. Objective: Vital Signs Temp Pulse Resp BP Pulse Ox 36.8 C 73 14 137/85 H 92 03/07/18 08:00 03/07/18 08:00 03/07/18 08:00 03/07/18 08:00 03/07/18 08:00 Laboratory Results 03/05/18 18:49 03/05/18 18:49 03/06/18 03/07/18 03/08/18 05:59 05:59 05:59 Intake Total 3520 3173.6 300 Output Total 500 Balance 3520 2673.6 300 PT 13.6 SEC (12.0-15.0) 02/22/18 04:28 INR 1.02 (0.83-1.16) 02/22/18 04:28 - Physical Exam Constitutional: appears nourished, chronically ill appearing, No not in pain Eyes: PERRL Ears, Nose, Mouth, Throat: hearing normal Cardiovascular: regular rate and rhythym Respiratory: no respiratory distress Gastrointestinal: normoactive bowel sounds Skin: warm Musculoskeletal: generalized weakness Neurologic: AAOx3 Psychiatric: not encephalopathic, anxious ICD10 Worksheet Patient Problems: Problems Problem Status Onset CSF leak Acute Herniated intervertebral disc of lumbar spine Acute Low back pain Acute Lumbar radicular pain Acute
[2018-03-07] MEDS: GABAPENTIN 400 MG CAP PO SCH ×3 (09:22→20:57)
[2018-03-07] MEDS: lamoTRIgine 100 MG TAB PO SCH (09:22)
[2018-03-07] MEDS: ENOXAPARIN 40 MG/0.4 ML SYR SC SCH (09:22)
[2018-03-07] MEDS: FAMOTIDINE 20 MG TAB PO SCH ×2 (09:22→20:57)
[2018-03-07] MEDS: CETIRIZINE 10 MG TAB PO SCH (09:22)
[2018-03-07] MEDS: amLODIPine BESYLATE 5 MG TAB PO SCH (09:23)
[2018-03-07] MEDS: SENNOSIDES/DOCUSATE SODIUM TAB PO SCH ×2 (09:23→20:58)
[2018-03-07] MEDS: CYCLOBENZAPRINE 10 MG TAB PO SCH ×3 (09:23→20:57)
[2018-03-07] MEDS: DULoxetine 60 MG CAP PO SCH (09:23)
[2018-03-07] MEDS: LIDOCAINE 4%/MENTHOL 1% PATCH TD SCH (09:24)
--- NOTE | 2018-03-07 11:11 | PCMIDPN ---
Assessment/Plan: Assessment: MSSA bacteremia with epidural abscess. Patient is status post epidural abscess debridement. She is changed from IV nafcillin to IV vancomycin secondary to a morbilliform rash. This rash is resolved at this point. Most recent blood cultures remain negative. Patient is feeling clinically stable although she continues to have pain in her right hip which will be re-evaluated by an MRI today. She is tearful secondary to social issues. Plan: 1. Continue IV vancomycin at present dose. 2. Follow clinical course. 03/05/18 12:15 03/07/18 11:08 Subjective: From patient leg in her hospital bed. She continues to have some right hip pain but her physical symptoms are over shadows by issues surrounding her dog at home that she misses a great deal. Objective: Vancomycin # 3 (#11) Vital Signs Temp Pulse Resp BP Pulse Ox 36.8 C 73 14 137/85 H 92 03/07/18 08:00 03/07/18 08:00 03/07/18 08:00 03/07/18 09:23 03/07/18 08:00 Laboratory Results 03/05/18 18:49 03/05/18 18:49 03/06/18 03/07/18 03/08/18 05:59 05:59 05:59 Intake Total 3520 3173.6 300 Output Total 500 Balance 3520 2673.6 300 C-Reactive Protein 190.7 mg/L (<10.0) H 02/23/18 04:28 - Physical Exam General Appearance: WD/WN, alert, no apparent distress, non-toxic Respiratory: lungs clear, No respiratory distress Cardiac/Chest: regular rate, rhythm, No tachycardia Skin: normal color, No rash Neuro/Psych: alert, normal mood/affect, oriented x 3 ICD10 Worksheet Patient Problems: Problems Problem Status Onset CSF leak Acute Herniated intervertebral disc of lumbar spine Acute Low back pain Acute Lumbar radicular pain Acute
--- NOTE | 2018-03-07 13:54 | PDCONSULT ---
Drainlayer Note: contreras is a pleasant 57 female, being seen by orthopedics today for right hip pain. patient reports she came to the hospital some time around the 23 of february , "its been a journey" is how she describes it. She reports that originally she underwent a microdisectomy, was found to have had a "CSF fluid leak with staph aureus infection," had a drain placed for spinal abscess, and started on IV abx and sent to ICU. At that point, she reports no hip pain, but the hip pain started once she begin to get up out of bed, initially the right hip pain started out as a sore ache. the onset was quick as she reports wednesday she was "100% normal with no pain" but on wednesday she felt a flash of pain in her right hip randomly while seated, five minutes later it was a stabbing 10/10, overall she thinks the pain is better in the am and worse in the evening. currently awaiting mri right hip to rule out osteomyelitis right hip. denies fevers/chills/n/v/d/c/, denies numbness/tingling, denies cp/sob/ difficulty breathing Generic Name Dose Route Start Last Admin Trade Name Freq PRN Reason Stop Dose Admin Acetaminophen 1,000 mg 02/21/18 14:00 03/07/18 14:26 Tylenol PO 08/20/18 13:59 1,000 mg Q8 ARAVIND Administration Alteplase, Recombinant 2 mg 03/04/18 11:39 03/05/18 18:26 Cathflo Activase IVP 08/31/18 11:38 2 mg PRN PRN Administration Per PICC line policy Amlodipine Besylate 5 mg 02/24/18 09:00 03/07/18 09:23 Norvasc PO 08/23/18 08:59 5 mg DAILY ARAVIND Administration Bisacodyl 10 mg 02/23/18 10:06 Dulcolax Rectal NC 08/22/18 10:05 DAILY PRN Constipation Protocol Carboxymethylcellulose 1 drop 02/21/18 12:33 Refresh Celluvisc EACHEYE 08/20/18 12:32 PRN PRN DRY EYES Cetirizine HCl 10 mg 02/22/18 09:00 03/07/18 09:22 Zyrtec PO 08/21/18 08:59 10 mg DAILY ARAVIND Administration Cyclobenzaprine HCl 10 mg 02/21/18 16:00 03/07/18 14:26 Flexeril PO 08/20/18 15:59 10 mg TID ARAVIND Administration Diazepam 5 mg 02/21/18 12:49 03/07/18 16:12 Valium PO 08/20/18 12:48 5 mg Q6HRS PRN Administration Anxiety, Able to Take PO Diphenhydramine HCl 25 - 50 mg 02/23/18 10:06 03/05/18 08:52 Benadryl PO 08/22/18 10:05 25 mg Q6HRS PRN Administration Itching Diphenhydramine HCl 25 - 50 mg 02/23/18 10:06 Benadryl Injection IVP 08/22/18 10:05 Q6HRS PRN Itching Duloxetine HCl 60 mg 02/22/18 09:00 03/07/18 09:23 Cymbalta PO 08/21/18 08:59 60 mg DAILY ARAVIND Administration Enoxaparin Sodium 40 mg 02/26/18 10:45 03/07/18 09:22 Lovenox SC 08/25/18 10:44 Not Given DAILY ARAVIND Famotidine 20 mg 02/23/18 21:00 03/07/18 09:22 Pepcid PO 08/22/18 20:59 20 mg BID ARAVIND Administration Gabapentin 400 mg 02/26/18 09:00 03/07/18 16:12 Neurontin PO 08/25/18 08:59 400 mg TID ARAVIND Administration Hydromorphone HCl 0.4 mg 02/26/18 14:33 Dilaudid IVP 03/08/18 14:32 Q4HRS PRN Pain, Severe Unable to Take PO Vancomycin HCl 3.5 gm/ 500 mls @ 20.833 mls/hr 03/04/18 17:00 03/06/18 18:26 Dextrose IV 04/03/18 16:59 500 mls DAILY@1700 ARAVIND Administration Lactulose 20 gm 02/23/18 10:06 Cephulac PO 08/22/18 10:05 TID PRN Constipation Protocol Lamotrigine 200 mg 02/21/18 12:45 03/07/18 09:22 Lamictal PO 08/20/18 12:44 200 mg DAILY ARAVIND Administration Levothyroxine Sodium 200 mcg 02/22/18 06:00 03/07/18 05:50 Synthroid PO 08/21/18 05:59 200 mcg DAILY@06 ARAVIND Administration Loperamide HCl 2 mg 02/21/18 12:33 03/06/18 09:19 Imodium PO 08/20/18 12:32 2 mg PRN PRN Administration Diarrhea/Loose Stools Magnesium Hydroxide 30 ml 02/23/18 10:06 Milk Of Magnesia PO 08/22/18 10:05 DAILY PRN Constipation Protocol Miscellaneous Information 1 ea 02/28/18 21:00 03/06/18 21:32 Patch Removal TD 08/27/18 20:59 1 ea DAILY21 ARAVIND Administration Miscellaneous Medication 1 patch 02/28/18 17:15 03/07/18 09:24 Icy Hot Lidocaine/Menthol 4%/1% Patch TD 08/27/18 17:14 1 patch DAILY ARAVIND Administration Multi-Ingredient Cream 1 claude 02/23/18 12:40 Eucerin Cream TP 08/22/18 12:39 QID PRN Dry Skin Naloxone HCl 0 mg 02/23/18 10:06 Narcan IVP 08/22/18 10:05 PRN PRN Respiratory depression Protocol Ondansetron HCl 4 mg 02/21/18 12:49 Zofran IVP 08/20/18 12:48 Q4HRS PRN Nausea/Vomiting, Can't Take PO Ondansetron HCl 4 mg 02/21/18 12:49 Zofran Odt PO 08/20/18 12:48 Q4HRS PRN Nausea/Vomiting, Use 1st Oxycodone HCl 5 - 10 mg 03/03/18 16:02 03/07/18 14:24 Oxycodone Ir PO 03/13/18 16:01 5 mg Q4HRS PRN Administration Pain, Severe Able to Take PO Polyethylene Glycol 17 gm 02/23/18 10:06 02/25/18 22:17 Miralax PO 08/22/18 10:05 17 gm DAILY PRN Administration Constipation, patient prefers Protocol Senna/Docusate Sodium 1 - 2 tab 02/23/18 21:00 03/07/18 09:23 Senokot-S PO 08/22/18 20:59 Not Given BID ARAVIND Protocol Throat Lozenges 1 ea 02/28/18 09:57 Cepacol Lozenge PO 08/27/18 09:56 PRN PRN Sore Throat Zolpidem Tartrate 5 mg 02/23/18 10:06 Ambien PO 08/22/18 10:05 HS PRN Sleep/Insomnia Discontinued Medications Generic Name Dose Route Start Last Admin Trade Name Irvin PRN Reason Stop Dose Admin Hydrocodone Bitart/Acetaminophen 1 - 2 tab 02/23/18 10:06 [place] 5/325 PO 03/05/18 10:05 Q4HRS PRN Pain, Moderate Albuterol 3 ml 02/23/18 08:45 Proventil Neb IH 02/23/18 09:46 Q10M PRN PACU, Wheezing Alteplase, Recombinant 2 mg 02/24/18 14:13 Cathflo Activase IVP 08/23/18 14:12 PRN PRN Per PICC line policy Bacitracin Confirm 02/23/18 06:49 02/23/18 07:58 Bacitracin Syringe Administered 02/23/18 06:50 100,000 units Dose Administration 100,000 units IRR .STK-MED ONE Bupivacaine HCl Confirm 02/23/18 06:48 02/23/18 09:09 Sensorcaine 0.25% Sdv Administered 02/23/18 06:49 13 ml Dose Administration 60 ml .ROUTE .STK-MED ONE Cefazolin Sodium/Dextrose Confirm 02/23/18 06:44 Ancef 2 Gm Administered 02/23/18 06:45 Dose 2 gm IV .STK-MED ONE Chlorhexidine Gluconate Confirm 02/23/18 06:48 02/23/18 07:59 Hibiclens Administered 02/23/18 06:49 4 oz Dose Administration 1 btl TP .STK-MED ONE Cyclobenzaprine HCl 10 mg 02/23/18 09:00 02/23/18 10:18 Flexeril PO 02/23/18 09:01 10 mg ONCE ONE Administration Dexamethasone Confirm 02/23/18 07:03 Decadron Injection Administered 02/23/18 07:04 Dose 8 mg .ROUTE .STK-MED ONE Diazepam 2.5 mg 02/21/18 08:35 02/21/18 09:00 Valium IVP 02/21/18 08:36 2.5 mg EDNOW ONE Administration Enoxaparin Sodium 40 mg 03/01/18 11:15 03/01/18 11:31 Lovenox SC 03/01/18 11:16 Not Given ONCE ONE Epinephrine HCl Confirm 02/23/18 06:48 02/23/18 08:00 Epinephrine Administered 02/23/18 06:49 0.15 mg Dose Administration 1 mg .ROUTE .STK-MED ONE Fentanyl Confirm 02/23/18 07:03 Sublimaze Administered 02/23/18 07:04 Dose 250 mcg .ROUTE .STK-MED ONE Fentanyl 25 - 100 mcg 02/23/18 08:45 Sublimaze IVP 02/23/18 09:46 Q5M PRN PACU, IMMEDIATE Pain control Fentanyl Confirm 03/03/18 11:47 Sublimaze Administered 03/03/18 11:48 Dose 100 mcg .ROUTE .STK-MED ONE Gabapentin 300 mg 02/23/18 14:00 02/26/18 06:21 Neurontin PO 08/22/18 13:59 300 mg Q8HRS ARAVIND Administration Gadobutrol Confirm 02/26/18 15:09 Gadavist 1 Mmol/Ml Administered 02/26/18 15:10 Dose 10 ml IVP .STK-MED ONE Gadobutrol Confirm 02/28/18 11:39 Gadavist 1 Mmol/Ml Administered 02/28/18 11:40 Dose 10 ml IVP .STK-MED ONE Gadobutrol Confirm 03/07/18 15:20 Gadavist 1 Mmol/Ml Administered 03/07/18 15:21 Dose 10 ml IVP .STK-MED ONE Heparin Sodium (Porcine) Confirm 03/05/18 17:52 Heparin Lock Flush Administered 03/05/18 17:53 Dose 500 unit IVP .STK-MED ONE Hydromorphone HCl 0.5 mg 02/21/18 08:35 02/21/18 08:59 Dilaudid IVP 02/21/18 08:36 Not Given EDNOW ONE Hydromorphone HCl 0 mg 02/23/18 10:06 Dilaudid Outreach Clinician IV 03/05/18 10:05 PRN PRN Pain, Severe Unable to Take PO Protocol Hydromorphone HCl 0.2 - 0.4 mg 02/23/18 10:06 Dilaudid IVP 03/05/18 10:05 Q1HR PRN Pain, Breakthrough Sodium Chloride 1,000 mls @ 0 mls/hr 02/21/18 08:35 02/21/18 09:00 Ns IV 02/21/18 08:36 1,000 mls EDNOW ONE Administration Protocol Wide Open Sodium Chloride 1,000 mls @ 40 mls/hr 02/21/18 13:00 02/24/18 05:40 Ns IV 08/20/18 12:59 1,000 mls CONT ARAVIND Administration Cefazolin Sodium/Dextrose 100 mls @ 200 mls/hr 02/23/18 14:00 02/23/18 07:21 Ancef 2 Gm IV 02/23/18 14:29 100 mls ONCALL ONE Administration Protocol Lactated Ringer's 1,000 mls @ 125 mls/hr 02/23/18 06:43 02/23/18 09:42 Lr IV 02/23/18 14:42 Not Given ONCE ONE Lactated Ringer's 500 mls @ 0 mls/hr 02/23/18 08:45 Lr IV 02/23/18 09:46 PRN PRN PACU, Nausea/Vomiting Post-Op Wide Open Dexmedetomidine HCl 400 mcg/ 104 mls @ 0 mls/hr 02/23/18 10:30 Sodium Chloride IV 08/22/18 10:29 CONT ARAVIND Protocol Titrate Sodium Chloride 500 mls @ 0 mls/hr 02/23/18 10:06 Ns IV 08/22/18 10:05 PRN PRN Hypotension As Directed Vancomycin HCl 1.25 gm/ 250 mls @ 166.67 mls/hr 02/23/18 10:30 02/23/18 11:04 Dextrose IV 02/23/18 11:30 250 mls Q12H ARAVIND Administration Protocol Vancomycin HCl 3.5 gm/ 500 mls @ 20.833 mls/hr 02/23/18 12:00 02/24/18 11:55 Dextrose IV 03/25/18 11:59 500 mls DAILY@1200 ARAVIND Administration Nafcillin Sodium 2 gm/ 100 mls @ 100 mls/hr 02/24/18 18:00 03/01/18 14:10 Dextrose IV 03/01/18 16:00 100 mls Q4HRS ARAVIND Administration Protocol Dexmedetomidine HCl 400 mcg/ 104 mls @ 0 mls/hr 02/26/18 09:00 Sodium Chloride IV 08/25/18 08:59 CONT ARAVIND Protocol Titrate Dexmedetomidine/Sodium Chloride 100 mls @ 0 mls/hr 02/26/18 19:30 02/28/18 08 :09 Precedex 4 Mcg/Ml 100 Ml (Premix) IV 08/25/18 08:59 100 mls CONT ARAVIND Administration Protocol Titrate Dexmedetomidine/Sodium Chloride 50 mls @ 0 mls/hr 03/01/18 01:00 03/01/18 05: 26 Precedex 4 Mcg/Ml 50 Ml (Premix) IV 08/25/18 19:29 50 mls CONT ARAVIND Administration Protocol Titrate Nafcillin Sodium 2 gm/ Sodium 100 mls @ 100 mls/hr 03/01/18 18:00 03/04/18 10 :43 Chloride IV 03/26/18 17:59 100 mls Q4HRS ARAVIND Administration Protocol Sodium Chloride 1,000 mls @ 0 mls/hr 03/02/18 16:55 03/02/18 18:11 Ns IV 03/02/18 16:56 Not Given ONCALL ONE TKO Vancomycin HCl 1.25 gm/ 250 mls @ 166.67 mls/hr 03/04/18 15:00 03/04/18 15:25 Dextrose IV 03/04/18 16:29 250 mls ONCE ONE Administration Protocol Iopamidol Confirm 02/21/18 15:33 Isovue-M 300 Administered 02/21/18 15:34 Dose 15 ml .ROUTE .STK-MED ONE Lidocaine HCl Confirm 02/21/18 15:34 Lidocaine Hcl 1% Administered 02/21/18 15:35 Dose 300 mg .ROUTE .STK-MED ONE Lidocaine HCl Confirm 02/23/18 07:03 Xylocaine-Mpf 2% Vial Administered 02/23/18 07:04 Dose 5 ml .ROUTE .STK-MED ONE Methocarbamol 750 mg 02/23/18 10:06 02/26/18 02:15 Robaxin PO 08/22/18 10:05 750 mg QID PRN Administration Spasms Methylprednisolone Sodium Succinate 125 mg 02/21/18 08:36 02/21/18 08:59 Solu-Medrol IVP 02/21/18 08:37 125 mg EDNOW ONE Administration Methylprednisolone Sodium Succinate 60 mg 02/21/18 12:48 02/23/18 12:51 Solu-Medrol IVP 08/20/18 12:47 Not Given Q6HRS ARAVIND Midazolam HCl Confirm 03/03/18 11:46 Versed Administered 03/03/18 11:47 Dose 6 mg .ROUTE .STK-MED ONE Morphine Sulfate 4 mg 02/21/18 09:02 02/21/18 09:05 Morphine IVP 02/21/18 09:03 4 mg EDNOW ONE Administration Morphine Sulfate 2 - 4 mg 02/23/18 10:06 03/03/18 15:19 Morphine IVP 03/05/18 10:05 4 mg Q1HR PRN Administration Pain, breakthough Naloxone HCl 0.1 mg 02/23/18 08:45 Narcan IVP 02/23/18 09:45 Q2M PRN PACU Resp Rate <10/min Ondansetron HCl Confirm 02/23/18 08:42 Zofran Administered 02/23/18 08:43 Dose 4 mg .ROUTE .STK-MED ONE Oxycodone HCl 10 mg 02/21/18 12:49 03/01/18 07:42 Oxycodone Ir PO 03/03/18 12:48 10 mg Q4HRS PRN Administration Pain, Severe Able to Take PO Oxycodone HCl 5 - 10 mg 02/23/18 08:45 Oxycodone Ir PO 02/23/18 09:46 Q4HRS PRN PACU, Pain Severe Oxycodone HCl 0 mg 03/01/18 07:59 03/03/18 11:55 Oxycodone Ir PO 03/03/18 12:48 10 mg Q3 PRN Administration Pain, Severe Able to Take PO Promethazine HCl 6.25 - 12.5 mg 02/23/18 08:45 Phenergan IVP 02/23/18 09:46 Q5M PRN PACUNausea/Vomiting, Unable PO Propofol Confirm 02/23/18 07:03 Diprivan 10 Mg/Ml (Premix) Administered 02/23/18 07:04 Dose 500 mg IV .STK-MED ONE Propofol Confirm 02/23/18 08:05 Diprivan Administered 02/23/18 08:06 Dose 200 mg .ROUTE .STK-MED ONE Propofol Confirm 02/23/18 08:32 Diprivan 10 Mg/Ml (Premix) Administered 02/23/18 08:33 Dose 500 mg IV .STK-MED ONE Propofol Confirm 03/03/18 12:57 Diprivan Administered 03/03/18 12:58 Dose 200 mg .ROUTE .STK-MED ONE Rocuronium [place] Confirm 02/23/18 07:03 Zemuron Administered 02/23/18 07:04 Dose 50 mg .ROUTE .STK-MED ONE Thrombin Confirm 02/23/18 06:48 02/23/18 08:01 Thrombin-Jmi Administered 02/23/18 06:49 20,000 unit Dose Administration 20,000 unit TP .STK-MED ONE Triamcinolone Acetonide Confirm 02/21/18 15:33 Kenalog-40 Administered 02/21/18 15:34 Dose 200 mg IM .STK-MED ONE Allergy/AdvReac Type Severity Reaction Status Date / Time nafcillin Allergy Intermediate Rash Verified 03/04/18 11:57 NSAIDS (Non-Steroidal Allergy Intermediate Verified 03/04/18 11:57 Anti-Inflamma aspirin Allergy Verified 02/21/18 07:50 iodine Allergy SOB Verified 02/21/18 07:50 FOLLOWING AN MRI W/CONTRAST WBC 10.33 10^3/uL (3.80-9.50) H 03/05/18 18:49 RBC 4.40 10^6/uL (4.18-5.33) 03/05/18 18:49 Hgb 11.5 g/dL (12.6-16.3) L 03/05/18 18:49 Hct 35.6 % (38.0-47.0) L 03/05/18 18:49 MCV 80.9 fL (81.5-99.8) L 03/05/18 18:49 MCH 26.1 pg (27.9-34.1) L 03/05/18 18:49 MCHC 32.3 g/dL (32.4-36.7) L 03/05/18 18:49 RDW 16.7 % (11.5-15.2) H 03/05/18 18:49 Plt Count 422 10^3/uL (150-400) H 03/05/18 18:49 MPV 8.1 fL (8.7-11.7) L 03/05/18 18:49 Neut % (Auto) 68.8 % (39.3-74.2) 03/05/18 18:49 Lymph % (Auto) 20.4 % (15.0-45.0) 03/05/18 18:49 [place] % (Auto) 6.0 % (4.5-13.0) 03/05/18 18:49 Eos % (Auto) 4.2 % (0.6-7.6) 03/05/18 18:49 Baso % (Auto) 0.3 % (0.3-1.7) 03/05/18 18:49 Nucleat RBC Rel Count 0.0 % (0.0-0.2) 03/05/18 18:49 Absolute Neuts (auto) 7.11 10^3/uL (1.70-6.50) H 03/05/18 18:49 Absolute Lymphs (auto) 2.11 10^3/uL (1.00-3.00) 03/05/18 18:49 Absolute Monos (auto) 0.62 10^3/uL (0.30-0.80) 03/05/18 18:49 Absolute Eos (auto) 0.43 10^3/uL (0.03-0.40) H 03/05/18 18:49 Absolute Basos (auto) 0.03 10^3/uL (0.02-0.10) 03/05/18 18:49 Absolute Nucleated RBC 0.00 10^3/uL (0-0.01) 03/05/18 18:49 Immature Gran % 0.3 % (0.0-1.1) 03/05/18 18:49 Immature Gran # 0.03 10^3/uL (0.00-0.10) 03/05/18 18:49 PT 13.6 SEC (12.0-15.0) 02/22/18 04:28 INR 1.02 (0.83-1.16) 02/22/18 04:28 APTT 27.3 SEC (23.0-38.0) 02/22/18 04:28 Sodium 139 mEq/L (135-145) 03/05/18 18:49 Potassium 4.2 mEq/L (3.3-5.0) 03/05/18 18:49 Chloride 103 mEq/L (97-110) 03/05/18 18:49 Carbon Dioxide 29 mEq/l (22-31) 03/05/18 18:49 Anion Gap 7 mEq/L (8-16) L 03/05/18 18:49 BUN 9 mg/dL (7-23) 03/05/18 18:49 Creatinine 0.7 mg/dL (0.6-1.0) 03/07/18 14:47 Estimated GFR > 60 03/07/18 14:47 Glucose 96 mg/dL (70-100) 03/05/18 18:49 Calcium 9.2 mg/dL (8.5-10.4) 03/05/18 18:49 Total Bilirubin 0.4 mg/dL (0.1-1.4) 03/05/18 18:49 Conjugated Bilirubin 0.5 mg/dL (0.0-0.5) 03/01/18 04:50 Unconjugated Bilirubin 0.0 mg/dL (0.0-1.1) 03/01/18 04:50 AST 17 IU/L (14-46) 03/05/18 18:49 ALT 53 IU/L (9-52) H 03/05/18 18:49 Alkaline Phosphatase 76 IU/L (38-126) 03/05/18 18:49 Creatine Kinase < 20 IU/L (0-156) 03/03/18 05:20 C-Reactive Protein 190.7 mg/L (<10.0) H 02/23/18 04:28 Total Protein 6.0 g/dL (6.3-8.2) L 03/05/18 18:49 Albumin 3.0 g/dL (3.5-5.0) L 03/05/18 18:49 Beta HCG, Qual NEGATIVE 02/21/18 10:42 Fl Pathologist Review Bandar GRAY MD 02/28/18 07:30 CSF Tube Number 1 02/28/18 07:30 CSF Appearance SL. HAZY (CLEAR) H 02/28/18 07:30 CSF Color COLORLESS (COLORLESS) 02/28/18 07:30 CSF Supernatant Not Reported 02/28/18 07:30 CSF WBC 228 /mm3 (0-5) H 02/28/18 07:30 CSF RBC 314 /mm3 (0-0) H 02/28/18 07:30 CSF Neutrophils % 56 % (0-6) H 02/28/18 07:30 CSF Lymphocytes % 37 % (0-100) 02/28/18 07:30 CSF Monos/Macrophage % 7 % (0-45) 02/28/18 07:30 CSF Glucose 44 mg/dL (50-75) L 02/28/18 07:30 CSF Total Protein 126 mg/dL (12-60) H 02/28/18 07:30 Random Vancomycin 24.5 mcg/mL (0.0-40.0) 03/06/18 17:15 Problems Problem Status Onset CSF leak Acute Herniated intervertebral disc of lumbar spine Acute Low back pain Acute Lumbar radicular pain Acute Temp Pulse Resp BP Pulse Ox 36.8 C 78 16 114/58 L 94 03/07/18 16:00 03/07/18 16:00 03/07/18 16:00 03/07/18 16:00 03/07/18 16:00 O2 (L/minute) 2 FIO2 (%) 40 RLE: no erythema/edema/ecchymosis, nttp greater trocanter, nttp asis, psis, inguinal/groin region, no pain w/ hip internal/external rotation, no pain w/ hip flexion/extension, grossly nvid w/ brisk cap refill a/p 57 yo female, with unknown etiology of right hip pain, s/p spine abscess I&D, concern for possible involvement of right hip, pending right hip MRI r/o right hip osteo -awaiting MRI, order placed approx 930 am 03/07/18, still waiting for patient to have study performed as of time of consult at 1250. -cont pain & proph per primary -iv abx per ID -ortho will cont follow while in patient full orthopedic consult to follow
[2018-03-07] MEDS: oxyCODONE IR 5 MG TAB PO PRN ×2 (14:24→20:58)
[2018-03-07] MEDS ORDERED: GADOBUTROL 10 ML VIAL IVP ONE (15:20)
[2018-03-07] MEDS: DIAZEPAM 5 MG TAB PO PRN ×2 (16:12→22:58)
--- NOTE | 2018-03-07 17:10 | ASMTCMCOM ---
MONIKA Note CM Note Notes: Spent some time with pt as she had a difficult night last night worrying about everything, but especially about her dog. The dog is safe at the [facility] and they are willing to work with her financially. She will continue to reach out to [facility] to find out her status re workers comp. CM will continue to follow. Date Signed: 03/07/2018 05:10 PM Electronically Signed By:VALERIE Cornell
[2018-03-07] MEDS: VANCOMYCIN IV SCH (20:54)
[2018-03-07] MEDS: D5W IV SCH (20:54)
[2018-03-07] MEDS: PATCH REMOVAL 1 EA PATCH TD SCH (20:58)
[2018-03-08] MEDS: ACETAMINOPHEN 500 MG TAB PO SCH ×2 (05:44→14:54)
[2018-03-08] MEDS: LEVOTHYROXINE 200 MCG TAB PO SCH (05:44)
[2018-03-08 07:50] VITALS: BP 132/82
[2018-03-08] MEDS: FAMOTIDINE 20 MG TAB PO SCH (08:03)
[2018-03-08] MEDS: DULoxetine 60 MG CAP PO SCH (08:03)
[2018-03-08] MEDS: GABAPENTIN 400 MG CAP PO SCH ×2 (08:03→14:55)
[2018-03-08] MEDS: lamoTRIgine 100 MG TAB PO SCH (08:03)
[2018-03-08] MEDS: CETIRIZINE 10 MG TAB PO SCH (08:03)
[2018-03-08] MEDS: amLODIPine BESYLATE 5 MG TAB PO SCH (08:03)
[2018-03-08] MEDS: CYCLOBENZAPRINE 10 MG TAB PO SCH ×2 (08:03→14:55)
[2018-03-08] MEDS: ENOXAPARIN 40 MG/0.4 ML SYR SC SCH (08:04)
[2018-03-08] MEDS: LIDOCAINE 4%/MENTHOL 1% PATCH TD SCH (08:04)
[2018-03-08] MEDS: SENNOSIDES/DOCUSATE SODIUM TAB PO SCH (08:04)
--- NOTE | 2018-03-08 08:46 | SOAPPROG ---
SOCEFERINO Progress Note Assessment/Plan: Assessment: Plan: Subjective: MRI reviewed . No obvious source hip pain Xrays reviewed. No obvious source of hip pain discussed with ortho PA will sign off. Dr Hill Objective: Vital Signs Temp Pulse Resp BP Pulse Ox 36.3 C 68 15 132/82 H 92 03/08/18 07:49 03/08/18 07:49 03/08/18 07:49 03/08/18 08:03 03/08/18 07:49 Microbiology 02/23/18 08:16 Gram Stain - Final Other - Eswab 02/23/18 08:16 Gram Stain - Final Vertebral Disc Laboratory Results 03/05/18 18:49 03/07/18 14:47 03/07/18 03/08/18 03/09/18 05:59 05:59 05:59 Intake Total 3173.6 3745.6 Output Total 500 Balance 2673.6 3745.6 PT 13.6 SEC (12.0-15.0) 02/22/18 04:28 INR 1.02 (0.83-1.16) 02/22/18 04:28 ICD10 Worksheet Patient Problems: Problems Problem Status Onset CSF leak Acute Herniated intervertebral disc of lumbar spine Acute Low back pain Acute Lumbar radicular pain Acute
--- NOTE | 2018-03-08 09:30 | HOSPPROG ---
Hospitalist Progress Note Assessment/Plan: Patient is a 57-year-old female with history of depression, anxiety and recent eye surgery presenting with acute back pain and found to have csf leak, discitis /epidural abscess and MSSA bacteremia #MSSA bacteremia with epidural abscess with L4/5 discitis: suspect from skin- picking -s/p right sided laminotomy w drainage of abscess complicated by a CSF leak -blood cultures 02/27 clear. CSF drain likely colonization, sp I&D and drain out. Has been on nafcillin but today noted to have drug rash and changed to vancomycin. -PICC was changed on 03/04/18 -MILTON without clear vegetation but echodensity to mid atrial septal wall *Rash -secondary to nafcillin -resolved #Right groin pain: gabapentin, Valium. Myositis/fascitis rectus femoris, no abscess. -appreciate orthopedics -her MRI from yesterday looks improved with less edema, she has a small labral tear #left toe pain -no further complaints #Depression/anxiety: cont home meds #Constipation: had BM. Cont bowel regimen #Obesity #HTN: home meds #Leukocytosis: trending down #Diet: regular #DVT ppx: SCDs, LMWH (patient has been declining this) #plan: if ok with ID, will plan to dc later today to either [place] or [facility] Subjective: Misti is feeling better today, wants to know everything is fine with her hip. Reviewed MRI report w her. Objective: Vital Signs Temp Pulse Resp BP Pulse Ox 36.3 C 68 15 132/82 H 92 03/08/18 07:49 03/08/18 07:49 03/08/18 07:49 03/08/18 08:03 03/08/18 07:49 Microbiology 02/23/18 08:16 Gram Stain - Final Other - Eswab 02/23/18 08:16 Gram Stain - Final Vertebral Disc Laboratory Results 03/05/18 18:49 03/07/18 14:47 03/07/18 03/08/18 03/09/18 05:59 05:59 05:59 Intake Total 3173.6 3745.6 Output Total 500 Balance 2673.6 3745.6 PT 13.6 SEC (12.0-15.0) 02/22/18 04:28 INR 1.02 (0.83-1.16) 02/22/18 04:28 - Physical Exam Constitutional: obese, uncomfortable Eyes: PERRL Ears, Nose, Mouth, Throat: hearing normal Respiratory: no respiratory distress Gastrointestinal: normoactive bowel sounds Skin: warm, No normal color (pale) Musculoskeletal: generalized weakness Neurologic: AAOx3 Psychiatric: interacting appropriately ICD10 Worksheet Patient Problems: Problems Problem Status Onset CSF leak Acute Herniated intervertebral disc of lumbar spine Acute Low back pain Acute Lumbar radicular pain Acute
[2018-03-08] MEDS: oxyCODONE IR 5 MG TAB PO PRN ×2 (10:49→11:32)
--- NOTE | 2018-03-08 10:49 | PCMIDPN ---
Assessment/Plan: # MSSA bacteremia and epidural abscess and L4-5 discitis s/p right right-sided L4-L5 tika laminotomy with mesial facetectomy and epidural abscess evacuation s/ p LD. Source of infection of unclear, but suspect chr skin picking. CSF also positive for MSSA. Blood cx 02/27 showing clearance. --IV vancomycin to complete 14 days for Staph aureus meningitis (switch date ), then could switch to cefazolin 2 g IV q.8 hours to complete 8 weeks of therapy for her epidural abscess and OM, tentative stop date 04/16/18 --follow up ID clinic 03/15/18 at 9:30 --last vancomycin level 24, creatinine 0.7 # right hip pain, MRI shows small labral tear, muscle inflammation has resolved Meds Vancomycin 3.5 g IV continuous infusion Microbiology 02/23/18 08:16 Vertebral Disc MSSA 02/23/18 08:16 Other - Eswab of epidural space MSSA 02/23/18 blood cx (2/2) MSSA 02/24/18 08:17 Cerebral Spinal Fluid CSF Culture -MSSA 02/26/18 06:30 Cerebral Spinal Fluid Staphylococcus Aureus, Staphylococcus Aureus#2 02/25/18 16:12 Blood Cx 1/2 Staphylococcus Aureus 02/27/18 14:15 Blood Cx 2 sets: neg 02/28/18 07:30 Cerebral Spinal Fluid CSF gram stain neg; Cx MSSA Subjective: Patient still feels debilitated by right hip pain Objective: Vital Signs Temp Pulse Resp BP Pulse Ox 36.3 C 68 15 132/82 H 92 03/08/18 07:49 03/08/18 07:49 03/08/18 07:49 03/08/18 08:03 03/08/18 07:49 Microbiology 02/23/18 08:16 Gram Stain - Final Other - Eswab 02/23/18 08:16 Gram Stain - Final Vertebral Disc Laboratory Results 03/05/18 18:49 03/07/18 14:47 03/07/18 03/08/18 03/09/18 05:59 05:59 05:59 Intake Total 3173.6 3745.6 Output Total 500 Balance 2673.6 3745.6 C-Reactive Protein 190.7 mg/L (<10.0) H 02/23/18 04:28 - Physical Exam General Appearance: alert, no apparent distress, obese Respiratory: lungs clear, No accessory muscle use Neck: supple Cardiac/Chest: regular rate, rhythm Extremities: No pedal edema Back: other (Incision healing well, mild anam wound pinkness, no erythema) Skin: pallor, No rash Neuro/Psych: alert, normal mood/affect, oriented x 3 - Time Spent With Patient Time Spent with Patient: greater than 35 minutes (care coordinated with hospitalist) Time Spent with Patient: Greater than 35 minutes spent on this patients care, greater than 50% of time spent counseling, educating, and coordinating care regarding the above mentioned plan. ICD10 Worksheet Patient Problems: Problems Problem Status Onset CSF leak Acute Herniated intervertebral disc of lumbar spine Acute Low back pain Acute Lumbar radicular pain Acute
--- NOTE | 2018-03-08 10:54 | PDIAF ---
- Diagnosis Diagnosis: MSSA bacteremia, epidural abscess discitis Code Status: Full Code - Medication Management Discharge Medications: Medications to Continue on Transfer Cyclobenzaprine [Flexeril 10 MG (*)] 10 mg PO TID #10 tab 02/12/18 [Last Taken 02/20/18] Hydrocodone/APAP 5/325 [[place]ock 5/325 (RX)] 1 - 2 tab PO Q4 PRN #10 tab 02/12/18 [ Last Taken 02/21/18 04:00] Acetaminophen [Tylenol 325mg (*)] 325 mg PO Q6 PRN 02/21/18 [Last Taken 02/20/18 ] Carboxymethylcellulose 1% [Refresh Celluvisc (*)] 1 drop EACHEYE PRN PRN [Last Taken 02/20/18] Cetirizine [ZyrTEC 10 mg (*)] 10 mg PO DAILY 02/21/18 [Last Taken 02/20/18] Duloxetine HCl [Duloxetine HCl] 60 mg PO DAILY 02/21/18 [Last Taken 02/21/18] Herbals/Supplements -Info Only 1 ea PO DAILY 02/21/18 [Last Taken Unknown] Levothyroxine Sodium [Levothyroxine Sodium] 200 mcg PO DAILY@06 02/21/18 [Last Taken 02/21/18] Loperamide HCl [Imodium 2 mg (*)] 2 mg PO PRN PRN 02/21/18 [Last Taken 02/20/18] Triamterene/Hctz 75/50 [Maxzide 75-50 mg Tab (*)] 1 tab PO DAILY 02/21/18 [Last Taken 02/17/18] amLODIPine BESYLATE [Amlodipine Besylate] 5 mg PO DAILY 02/21/18 [Last Taken 12/31] lamoTRIgine [Lamotrigine] 200 mg PO DAILY 02/21/18 [Last Taken 02/21/18] Practice Lead Antibiotics: vancomycin 3.5 gm IV continuous infusion Practice Lead Antibiotic Stop Date: 03/15/18 (change to cefazolin 03/15 through 04/16) Discharge Medications: Refer to the Discharge Home Medication list for PRN reason. PICC Care - Routine: Yes - Orders Additional Instructions: No bending/lifting/twisting Keep incision clean and dry Follow up with Dr. Gusman for a 2 week post op visit, call with any issues @ Wound care orders Change dressing to left thigh pressure injury Q3D and PRN 1. Cleanse wound with NS 2. Apply wound gel to the de roofed blister on the medial portion of the wound. This area is the only portion of the wound that is open and has a pink/pale wound bed. 3. Cover entire pressure injury area (medial to lateral thigh) with non- bordered foam. 4. Secure with netting. Brittany Fuchs RN Wound care team no nsaid's for 6 months - Labs/Radiology BMP Date: 03/10/18 CBC w/diff Date: 03/14/18 (weekly wednesday) CMP Date: 03/14/18 (weekly wednesday) Vanco Random Date: 03/10/18 (every Wednesday and ) Call or Fax Lab and Imaging Results to: Dr. Edmond [phone] - Follow Up Care Current Providers and Referrals: Meeta Aponte MD [Primary Care Provider] - As per Instructions Petra Edmond MD [Medical Doctor] - 03/15/18 9:30 am Austin Gusman MD [Medical Doctor] -
--- NOTE | 2018-03-08 13:23 | PDIAF ---
- Diagnosis Diagnosis: MSSA bacteremia, epidural abscess discitis Code Status: Full Code - Medication Management Discharge Medications: Medications to Continue on Transfer Cyclobenzaprine [Flexeril 10 MG (*)] 10 mg PO TID #10 tab 02/12/18 [Last Taken 02/20/18] Carboxymethylcellulose 1% [Refresh Celluvisc (*)] 1 drop EACHEYE PRN PRN [Last Taken 02/20/18] Cetirizine [ZyrTEC 10 mg (*)] 10 mg PO DAILY 02/21/18 [Last Taken 02/20/18] Duloxetine HCl 60 mg PO DAILY 02/21/18 [Last Taken 02/21/18] Herbals/Supplements -Info Only 1 ea PO DAILY 02/21/18 [Last Taken Unknown] Levothyroxine Sodium 200 mcg PO DAILY@02/21/18 [Last Taken 02/21/18] Loperamide HCl [Imodium 2 mg (*)] 2 mg PO PRN PRN 02/21/18 [Last Taken 02/20/18] Triamterene/Hctz 75/50 [Maxzide 75-50 mg Tab (*)] 1 tab PO DAILY 02/21/18 [Last Taken 02/17/18] amLODIPine BESYLATE [Amlodipine Besylate] 5 mg PO DAILY 02/21/18 [Last Taken 12/31] lamoTRIgine [Lamotrigine] 200 mg PO DAILY 02/21/18 [Last Taken 02/21/18] Acetaminophen [Tylenol ES 500 mg (*)] 1,000 mg PO Q8 tab 03/08/18 [Last Taken Unknown] Benzocaine/Menthol 15/4 [Cepacol Lozenge] 1 ea PO PRN PRN lozenge 03/08/18 [ Last Taken Unknown] Diazepam [Valium 5 MG (*)] 5 mg PO Q6HRS PRN tab 03/08/18 [Last Taken Unknown] Famotidine [Pepcid 20 MG (*)] 20 mg PO BID tab 03/08/18 [Last Taken Unknown] Gabapentin [Neurontin 400 MG (*)] 400 mg PO TID cap 03/08/18 [Last Taken Unknown] Lidocaine 4%/Menthol 1% [Icy Hot Lidocaine/Menthol 4%/1% Patch (*)] 1 patch TD DAILY patch 03/08/18 [Last Taken Unknown] Patch Removal 1 ea TD DAILY21 patch 03/08/18 [Last Taken Unknown] Polyethylene Glycol 3350 [Miralax 17 gm (*)] 17 gm PO DAILY PRN pkt 03/08/18 [ Last Taken Unknown] Sennosides/Docusate Sodium [Senokot-S] 1 - 2 tab PO BID tab 03/08/18 [Last Taken Unknown] Zolpidem Tartrate [Ambien 5MG (*)] 5 mg PO HS PRN tab 03/08/18 [Last Taken Unknown] diphenhydrAMINE [Benadryl 25 MG (*)] 25 - 50 mg PO Q6HRS PRN cap 03/08/18 [ Last Taken Unknown] oxyCODONE IR [Oxycodone Ir (*)] 5 - 10 mg PO Q4HRS PRN tab 03/08/18 [Last Taken Unknown] Silviculture Professor Antibiotics: vancomycin 3.5 gm IV continuous infusion Silviculture Professor Antibiotic Stop Date: 03/15/18 (change to cefazolin 03/15 through 04/16) Discharge Medications: Refer to the Discharge Home Medication list for PRN reason. PICC Care - Routine: Yes - Orders Services needed: Physical Therapy, Occupational Therapy Diet Recommendation: no restrictions on diet Diet Texture: Regular Texture Diet Additional Instructions: No bending/lifting/twisting Keep incision clean and dry Follow up with Dr. Gusman for a 2 week post op visit, call with any issues @ Wound care orders Change dressing to left thigh pressure injury Q3D and PRN 1. Cleanse wound with NS 2. Apply wound gel to the de roofed blister on the medial portion of the wound. This area is the only portion of the wound that is open and has a pink/pale wound bed. 3. Cover entire pressure injury area (medial to lateral thigh) with non- bordered foam. 4. Secure with netting. Brittany Fuchs RN Wound care team no nsaid's for 6 months - Labs/Radiology BMP Date: 03/10/18 CBC w/diff Date: 03/14/18 (weekly wednesday) CMP Date: 03/14/18 (weekly wednesday) Call or Fax Lab and Imaging Results to: Dr. Edmond [phone] - Follow Up Care Current Providers and Referrals: Meeta Aponte MD [Primary Care Provider] - As per Instructions Petra Edmond MD [Medical Doctor] - 03/15/18 9:30 am Austin Gusman MD [Medical Doctor] -
--- NOTE | 2018-03-08 14:09 | GDS ---
[f rep st] DISCHARGE SUMMARY DISCHARGE DIAGNOSES: 1. Methicillin-sensitive Staphylococcus aureus bacteremia with epidural abscess with associated L4/5 diskitis. 2. Rash. 3. Right groin pain. 4. Left toe pain. 5. Depression, anxiety. 6. Constipation. 7. Obesity. 8. Hypertension. 9. Leukocytosis. CONSULTATIONS: 1. Dr. Gusmna. 2. Dr. Petra Edmond. 3. Dr. Andrea Vitale. 4. Dr. [place]. HISTORY OF PRESENT ILLNESS: Briefly, the patient is a 57-year-old woman who was admitted on February 21 who has a history of depression, anxiety, and recent eye surgery. She presented with a couple weeks of low back pain. 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 She had lower extremity pain and weakness since that time. It was noted that she had an L4-L5 disk care and was seen and evaluated by Neurosurgery. She had an L3-L4 epidural steroid injection on 02/21/2018 , and her symptoms did not improve. She was subsequently seen again by Neurosurgery who noted that sh e would likely need to have surgery. She went to the OR on 02/23, with Dr. Gusman and had right-sided L4-L5 hemilaminotomy with a mesial fasciectomy, microdiskectomy, and evacuation of epidural abscess. She was transferred to the ICU because there was concern of possible purulence at the site. Samples w ere sent from her epidural space and at L4-L5 disks, which were positive for GPCs. In addition, a lum bar drain was left in place due to an ongoing CSF leak. She had a long stay in the hospital and recei sandro treatment for diskitis. She had recurrent complaints of right groin and right hip pain. She had an MRI performed, which showe d abnormal edema and enhancement within the surrounding proximal rectus femoris muscle from the level of the lesser trochanter inferior suggesting mild myositis and fasciitis without discrete abscess. T here was no joint effusion to suggest septic arthritis bilaterally. She continued to complain of this pain and that came and went. She had a repeat MRI of the right lower extremity, which showed interva l resolution in the abnormal edema and enhancement in the proximal right rectus femoris muscle from p rior study. It did note that she had a small displaced tear of the anterior superior acetabular labru m in the right hip. She was seen and evaluated by Orthopedics who did not feel anything else was need ed at this time. The plan is for her to be discharged to the alf facility for rehab. She has multiple appointments to follow up with several doctors. HOSPITAL COURSE: 1. MSSA bacteremia with epidural abscess with L4/5 diskitis. She is status post a right-sided erin ctomy with drainage of abscess, complicated by cerebrospinal fluid leak. Her blood cultures are clear . She has been treated with nafcillin, but had a drug rash and this was changed to vancomycin. She al so has a new PICC that was placed on 03/04/2018. She had a MILTON performed that shows no clear vegetati on, but echodensity to the mid atrial septal wall. 2. Rash. This is secondary to nafcillin. This has since resolved. 3. Right groin pain. Her MRI shows much improved edema. 4. Left toe complaint. No further complaints. 5. Depression, anxiety. Resumed her home medications. 6. Constipation. Continued bowel regimen. 7. Obesity. She has a BMI of 36.9. 8. Hypertension. Resumed her home medications. 9. Leukocytosis. Trending down. DISCHARGE CONDITION: Stable. Blood pressure is 132/82, heart rate is 68, respiratory rate of 15, O2 sats on room air 92%, temperature 36.3 Celsius. DISCHARGE MEDICATIONS: Please see the EMR. DISCHARGE INSTRUCTIONS: No bending, lifting, or twisting. Follow up with Dr. Gusman in the next 2 we eks for postop followup. She also will get wound care orders that have been written out in detail and also no NSAIDs for 6 months. Greater than 30 minutes discharging and coordinating the patient's care. /[id number]/MODL
--- NOTE | 2018-03-08 14:41 | PDIAF ---
- Diagnosis Diagnosis: MSSA bacteremia, epidural abscess discitis Code Status: Full Code - Medication Management Discharge Medications: Medications to Continue on Transfer Cyclobenzaprine [Flexeril 10 MG (*)] 10 mg PO TID #10 tab 02/12/18 [Last Taken 02/20/18] Carboxymethylcellulose 1% [Refresh Celluvisc (*)] 1 drop EACHEYE PRN PRN [Last Taken 02/20/18] Cetirizine [ZyrTEC 10 mg (*)] 10 mg PO DAILY 02/21/18 [Last Taken 02/20/18] Duloxetine HCl 60 mg PO DAILY 02/21/18 [Last Taken 02/21/18] Herbals/Supplements -Info Only 1 ea PO DAILY 02/21/18 [Last Taken Unknown] Levothyroxine Sodium 200 mcg PO DAILY@02/21/18 [Last Taken 02/21/18] Loperamide HCl [Imodium 2 mg (*)] 2 mg PO PRN PRN 02/21/18 [Last Taken 02/20/18] Triamterene/Hctz 75/50 [Maxzide 75-50 mg Tab (*)] 1 tab PO DAILY 02/21/18 [Last Taken 02/17/18] amLODIPine BESYLATE [Amlodipine Besylate] 5 mg PO DAILY 02/21/18 [Last Taken 12/31] lamoTRIgine [Lamotrigine] 200 mg PO DAILY 02/21/18 [Last Taken 02/21/18] Acetaminophen [Tylenol ES 500 mg (*)] 1,000 mg PO Q8 tab 03/08/18 [Last Taken Unknown] Benzocaine/Menthol 15/4 [Cepacol Lozenge] 1 ea PO PRN PRN lozenge 03/08/18 [ Last Taken Unknown] Diazepam [Valium 5 MG (*)] 5 mg PO Q6HRS PRN tab 03/08/18 [Last Taken Unknown] Famotidine [Pepcid 20 MG (*)] 20 mg PO BID tab 03/08/18 [Last Taken Unknown] Gabapentin [Neurontin 400 MG (*)] 400 mg PO TID cap 03/08/18 [Last Taken Unknown] Lidocaine 4%/Menthol 1% [Icy Hot Lidocaine/Menthol 4%/1% Patch (*)] 1 patch TD DAILY patch 03/08/18 [Last Taken Unknown] Patch Removal 1 ea TD DAILY21 patch 03/08/18 [Last Taken Unknown] Polyethylene Glycol 3350 [Miralax 17 gm (*)] 17 gm PO DAILY PRN pkt 03/08/18 [ Last Taken Unknown] Sennosides/Docusate Sodium [Senokot-S] 1 - 2 tab PO BID tab 03/08/18 [Last Taken Unknown] Vancomycin [Vancomycin (*)] 3.5 gm IV DAILY@1700 vial 03/08/18 [Last Taken Unknown] Zolpidem Tartrate [Ambien 5MG (*)] 5 mg PO HS PRN tab 03/08/18 [Last Taken Unknown] diphenhydrAMINE [Benadryl 25 MG (*)] 25 - 50 mg PO Q6HRS PRN cap 03/08/18 [ Last Taken Unknown] oxyCODONE IR [Oxycodone Ir (*)] 5 - 10 mg PO Q4HRS PRN tab 03/08/18 [Last Taken Unknown] Skilled Nursing Antibiotics: vancomycin 3.5 gm IV continuous infusion Pharmacy Intake Coordinator Antibiotic Stop Date: 03/15/18 (change to cefazolin 03/15 through 04/16) Discharge Medications: Refer to the Discharge Home Medication list for PRN reason. PICC Care - Routine: Yes - Orders Services needed: Physical Therapy, Occupational Therapy Diet Recommendation: no restrictions on diet Diet Texture: Regular Texture Diet Additional Instructions: No bending/lifting/twisting Keep incision clean and dry Follow up with Dr. Gusman for a 2 week post op visit, call with any issues @ [phone] Wound care orders Change dressing to left thigh pressure injury Q3D and PRN 1. Cleanse wound with NS 2. Apply wound gel to the de roofed blister on the medial portion of the wound. This area is the only portion of the wound that is open and has a pink/pale wound bed. 3. Cover entire pressure injury area (medial to lateral thigh) with non- bordered foam. 4. Secure with netting. Brittany Fuchs RN Wound care team no nsaid's for 6 months needs to follow up with med dir this - Labs/Radiology BMP Date: 03/10/18 CBC w/diff Date: 03/14/18 (weekly wednesday) CMP Date: 03/14/18 (weekly wednesday) Call or Fax Lab and Imaging Results to: Dr. Edmond [phone] - Follow Up Care Current Providers and Referrals: Meeta Aponte MD [Primary Care Provider] - As per Instructions Petra Edmond MD [Medical Doctor] - 03/15/18 9:30 am Austin Gusman MD [Medical Doctor] -
[2018-03-08] MEDS: LOPERAMIDE HCL 2 MG CAP PO PRN (14:55)
--- NOTE | 2018-03-08 15:32 | ASMTLACE ---
DEYSI Length of stay for Answers: 14 days or more current admission Acuity / Level of Answers: Yes Care: Did the patient have an inpatient admission? Comorbidities - select Answers: Opioid dependence all that apply / Chronic pain Other Notes: HTN; hypothyroidism # of Emergency department Answers: 1-2 visits in the last 6 months Social determinants Answers: Mental health diagnosis (anxiety, depression, pers onality disorders, etc.) Score: 19 Date Signed: 03/08/2018 03:32 PM Electronically Signed By:Angelica Palumbo
--- NOTE | 2018-03-08 15:50 | ASDISCHSUM ---
Discharge Information Plan Status:SNF Medically Cleared to Leave: Discharge Date:03/08/2018 03:32 PM D/C Disposition:[facility] Facility ADT D/C Disposition:[facility] Facility Projected Discharge Date:03/04/2018 11:00 AM Transportation at D/C: Discharge Delay Reason: Follow-Up Date:03/04/2018 11:00 AM Discharge Slot: Final Diagnosis: Placement Information Referral Type:*Snf/SNF Referral ID:[id number] Provider Name:[facility] Address 1:[address] Address 2: City:[place] Selection Factors: State:[place] Patient Contact Information Contact Name:MYNOR Relationship:Friend Address: City:[place] Alternate Phone: State/Zip Code:[place] [address] Email: Financial Information Financial Class:Worker's Compensation Primary Plan Desc:[facility] Primary Plan Number:[id number] Secondary Plan Desc:[facility] Secondary Plan Number:[id number] Assessment Information LACE LACE Length of stay for Answers: 14 days or more current admission Acuity / Level of Answers: Yes Care: Did the patient have an inpatient admission? Comorbidities - select Answers: Opioid dependence all that apply / Chronic pain Other Notes: HTN; hypothyroidism # of Emergency department Answers: 1-2 visits in the last 6 months Social determinants Answers: Mental health diagnosis (anxiety, depression, pers onality disorders, etc.) Score: 19 Date Signed: 03/08/2018 03:32 PM Electronically Signed By:Angelica Palumbo [facility] CM Progress Note CM Note CM Note Notes: Reviewed patient's chart for d/c planning purposes. Patient admitted with Lower Back Pain. Discussed with RN, patient scheduled for surgery tomorrow. Patient's d/c plan to be determined at this time. CM will follow-up post surgery. Current Plan: TBD Date Signed: 02/22/2018 02:39 PM Electronically Signed By:Liv Honeycutt RN [facility] Progress Note CM Note CM Note Notes: Met with patient who is distressed about her circumstances. She states she has worked for [employer] for 16 years and they have not supported her getting treatment. Patient is worried about if her FMLA has been initiated and whether or not she will get the paid leave she is entitled to. Patient signed a release so CM can follow up with [employer]. Patient also expressed concerns about worker's comp paying for her medical bills, since the injury happened at work. CM will request financial services visit with patient tomorrow to answer her questions. Patient states she does not have any family here. Both of her parents are . Patient has 3 sisters but is estranged from 2 of them. She has created distance as a result of one sister being a drug addict and one sister taking all of her father's estate instead of distributing it according to his wishes. The remaining sister lives in [place] and is 16 years older than she is. They are not close but she may contact her in her current circumstances. Patient does need emotional support and assist with whatever we might be able to help with. Patient did say she thinks her cat will be ok until Wednesday when her friend returns. Becca will be able to feed and check on the cat at that time. Patient spoke to her vet about it and patient has left enough food and water out to last the pet until Wednesday. CM will follow. Date Signed: 02/24/2018 04:46 PM Electronically Signed By:Naomi Johnson LCSW [facility] CM Progress Note CM Note CM Note Notes: Met with patient and gave her the name and number of the worker's comp trim machine adjuster who can confirm payment for her medical bills. (Breanna [phone]) Awaiting a call back from [employer] regarding confirmation of patient's FMLA. Patient got a PICC line today. D/C plan TBD. CM will follow. Date Signed: 02/25/2018 03:58 PM Electronically Signed By:Naomi Johnson LCSW [facility] CM Progress Note CM Note CM Note Notes: Patient very upset. Feels that after working for [employer] for the past 16yrs they are treating her injuries with no compassion and it has been very difficult for her to get her supervisors assist in need for Workman's Comp. She does not want anyone at the local [employer] level to know anything about her condition, especially Riana Jonaskatelynn. She is interested in knowing if [employer] has authorized her stay at [facility]-message left with out Financial Couselor. She is also interested in if she is being paid through [place] and asked if Lorrie Morin could be contacted. This CM will continue to see what progress has been made on Wednesday. Date Signed: 02/28/2018 04:54 PM Electronically Signed By:Nae Torres LCSW [facility] CM Progress Note CM Note CM Note Notes: Patient wondered if [employer]ing Rivera [facility] for [facility] was gooing to pay for her hospitalization. [facility] financial reports that Ping is in the investigative stage and [facility] won't know this answer. Financial says that if Ping does not pay patient's [facility] leana be the payor. Gave that info to patient. Patient also interested in getting [facility] paperwork to complete. This CM left message x2 for Lorrie Patience in HR, to fax the paperwork to [facility]. Have not received as yet or heard from her. Patient may need rehab and might be interested in [facility]. Date Signed: 03/01/2018 03:47 PM Electronically Signed By:Nae Torres LCSW [facility] CM Progress Note CM Note CM Note Notes: Pt does not qualify for inpatient rehab, referral sent to [facility] in [facility]. CM to follow. Date Signed: 03/03/2018 04:09 PM Electronically Signed By:VALERIE Franco [facility] CM Progress Note CM Note CM Note Notes: Spoke with pt at length she is very distressed about current circumstances with employer/work comp. Pt reports she is not getting any communication from her employer [employer] and her work comp trim machine adjuster. [facility] is pt SNF choice, they are assessing if they can take pt. Annabelle with [facility] reports work comp is active and they would be the payer for SNF, Annabelle met with pt today. [facility] would not have been able to accept pt on Nafcillin IV antibiotic due to cost but today the Nafcillin was d/c as pt is allergic. Pt also considering going home. Today PT does rec home, OT still rec SNF. Pt will need 6-8 weeks of IV antibiotics. 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 Pt wants to see how she progresses over the next few days to see if she can go home. CM will continue to follow. D/c plan of care: [facility] vs. Home with IV infusion co and [facility] Date Signed: 03/04/2018 02:09 PM Electronically Signed By:VALERIE Franco [facility] CM Progress Note CM Note CM Note Notes: CM discussed case with Martine Sexton NP, recommends SNF which OT recommends as well. MONIKA met with patient, she states she feels she has shown great improvement in the past 48 hours and does not think SNF is necessary. She shares she does understand she and her medical team are waiting to see how the infection responds to the antibiotics. The patient states concern around insurance coverage through her employer, states she specifically has not talked with Ping Rivera the insurer and called [employer] to discuss her concerns yesterday. She states if she is to go to a SNF, she is adamant Ping Rivera should be the payer. She is open to [facility] if necessary, though would prefer [facility]. CM to send referral per patient request stating payer must be Ping Rivera and also states understanding likely does not have any openings. D/C date TBD. CM to follow. Current Discharge Plan: TBD Date Signed: 03/05/2018 12:22 PM Electronically Signed By:Margi Harris [facility] Progress Note CM Note CM Note Notes: Spent some time with pt as she had a difficult night last night worrying about everything, but especially about her dog. The dog is safe at the [facility] and they are willing to work with her financially. She will continue to reach out to [facility] to find out her status re workers comp. CM will continue to follow. Date Signed: 03/07/2018 05:10 PM Electronically Signed By:VALERIE Cornell [facility] Progress Note CM Note CM Note Notes: [facility] has no bed availability and do not work with pt insurance. Pt medically stable for d/c to [facility]. Pt [employer] is primary for SNF since work comp in under investigation. Annabelle with [facility] met with pt today to answer questions, primarily pt concern of getting to her eye appointment which Annabelle assures pt they can help with. Orders sent in [employer]. Annabelle scheduled [facility] transport. RN Ramona trying to call report, both numbers busy and [facility] may have to call her. Date Signed: 03/08/2018 03:49 PM Electronically Signed By:VALERIE Franco Intervention Information
--- NOTE | 2018-03-08 15:50 | ASMTCMCOM ---
CM Note CM Note Notes: Chirag Mccollum has no bed availability and do not work with pt insurance. Pt medically stable for d/c to [facility]. Pt [employer] is primary for SNF since work comp in under investigation. Annabelle with [facility] met with pt today to answer questions, primarily pt concern of getting to her eye appointment which Annabelle assures pt they can help with. Orders sent in [employer]. Annabelle scheduled [facility] transport. KRISTEN Greene trying to call report, both numbers busy and [facility] may have to call her. Date Signed: 03/08/2018 03:49 PM Electronically Signed By:VALERIE Franco
[2018-03-08] MEDS ORDERED: oxyCODONE IR 5 MG TAB PO ONE (16:00)
== END 2018-03-08 15:32 | DRG 518 ==
LOC: F3N 11:13 → F2N 02-23 09:13 → F3N 03-03 11:30
PROVIDERS: ADMIT Internal Medicine; ATTEND Internal Medicine
PROC: 3E0S33Z Introduction of Anti-inflammatory into Epidural Space, Percutaneous Approach (ICD-10-PCS; 2018-02-21)
PROC: 01NB0ZZ Release Lumbar Nerve, Open Approach (ICD-10-PCS; principal; 2018-02-23 07:15)
PROC: 4A1004G Monitoring of Central Nervous Electrical Activity, Intraoperative, Open Approach (ICD-10-PCS; principal; 2018-02-23 07:15)
PROC: 0S9000Z Drainage of Lumbar Vertebral Joint with Drainage Device, Open Approach (ICD-10-PCS; principal; 2018-02-23 07:15)
PROC: 00NY0ZZ Release Lumbar Spinal Cord, Open Approach (ICD-10-PCS; principal; 2018-02-23 07:15)
PROC: 02H633Z Insertion of Infusion Device into Right Atrium, Percutaneous Approach (ICD-10-PCS; 2018-02-25)
PROC: B245ZZ4 Ultrasonography of Left Heart, Transesophageal (ICD-10-PCS; 2018-03-03)
PROC: 02H633Z Insertion of Infusion Device into Right Atrium, Percutaneous Approach (ICD-10-PCS; 2018-03-04)
DX: S33.141A Dislocation of L4/L5 lumbar vertebra, initial encounter (principal); G06.2 Extradural and subdural abscess, unspecified; G96.0 Cerebrospinal fluid leak; S33.5XXA Sprain of ligaments of lumbar spine, initial encounter; X50.0XXA Overexertion from strenuous movement or load, initial encounter; E86.9 Volume depletion, unspecified; M46.46 Discitis, unspecified, lumbar region; B95.61 Methicillin susceptible Staphylococcus aureus infection as the cause of diseases classified elsewhere; L27.0 Generalized skin eruption due to drugs and medicaments taken internally; T36.0X5A Adverse effect of penicillins, initial encounter; L89.892 Pressure ulcer of other site, stage 2; M60.88 Other myositis, other site; M72.8 Other fibroblastic disorders; K59.00 Constipation, unspecified; E87.5 Hyperkalemia; E66.9 Obesity, unspecified; I10 Essential (primary) hypertension; M24.151 Other articular cartilage disorders, right hip; Z68.36 Body mass index [BMI] 36.0-36.9, adult; F41.8 Other specified anxiety disorders; E03.9 Hypothyroidism, unspecified
CPT/HCPCS: 96374; 97116-GP; 97161-GP; 97165-GO; 97530-GO; 97530-GP; 97535-GO; A9585; C1751; J0171; J0690; J1100; J1170; J1642; J1650; J2250; J2270; J2405; J2704; J2930; J2997; J3010; J3301; J3360; J3370; Q9967

== ENCOUNTER 2018-03-15 18:17 | Observation (INO) | payer OTHER ==
--- NOTE | 2018-03-15 19:03 | EDPHY ---
HPI/HX/ROS/PE/MDM Narrative: CHIEF COMPLAINT: Post-operative fever HISTORY OF PRESENT ILLNESS: This patient is a 57 y/o female with recent history of MSSA bacteremia with epidural abscess with associated L5-S1 discitis. She underwent L4-L5 hemilaminotomy with Dr. Gusman on 02/23/18, at which point the epidural abscess was discovered. A lumbar drain was placed due to ongoing CSF leak. The patient has been at [facility] in [place] for the past week since being discharged from the hospital on 03/08. Yesterday, she noted she was mildly febrile around 100.8. Today, she had a follow up with Dr. Edmond, infectious disease specialist, and switched her IV antibiotic treatment from Vancomycin to ceftriaxone. This afternoon when she returned to rehab, she was again noted to be febrile. She states "Dr. Gusman told me to come in because I was running a temperature in rehab". Additionally, the patient states she has not been sleeping well due to memory foam mattresses at the rehab center. She has been having night sweats. She denies cold, cough, rhinorrhea, or sore throat. Does report an occasional cough. No chest pain, shortness of breath, palpitations, vomiting, diarrhea, urinary complaints, headache, lightheadedness. REVIEW OF SYSTEMS: Aside from elements discussed in the HPI, a comprehensive 10-point review of systems was reviewed and is negative. PAST MEDICAL HISTORY: She is s/p lumbar spine surgery on 02/23/18, currently undergoing treatment for MSSA bacteremia, epidural abscess, L5-S1 discitis. Depression. Anxiety. Hypothyroid. Hypertension. Eye surgery. Cholecystectomy. Tonsillectomy. SOCIAL HISTORY: Single. Lives in [place]. Employed. Does not abuse tobacco, drugs, or alcohol VITAL SIGNS: Reviewed by me. Not hypoxic. O2 sat 95%. GENERAL: Uncomfortable-appearing secondary to back pain. Well-developed, well- nourished, no respiratory distress. Patient states is quite difficult he will from laying to sitting and standing, however, when she is up and walking she feels fine. HEENT: Atraumatic. Eyes: No icterus, no injection. Mouth: moist mucous membranes. No erythema or lesions. Neck: supple with no adenopathy. LUNGS: Clear to auscultation bilaterally, no wheezes, rhonchi or rales. CARDIAC: Regular rate and rhythm, no rubs, murmurs or gallops. ABDOMEN: Soft, nontender, nondistended, bowel sounds normal. BACK: Surgical incision over lower lumbar spine. Sutures in place. Mild erythema surrounding. Some drainage onto dressing. No CVA tenderness. EXTREMITIES: No trauma. No edema. Range of motion is normal throughout. NEURO: Alert and oriented, grossly nonfocal. SKIN: Warm and dry, no rash. PSYCHIATRIC: Normal mentation, no agitation. Portions of this note were transcribed by a medical scheduler. I personally performed a history, physical exam, medical decision making, and confirmed accuracy of information the transcribed note. ED Course: This patient is a 57 y/o female who is s/p lumbar spine surgery on 02/23/18, currently undergoing treatment for MSSA bacteremia, epidural abscess, L5-S1 discitis. She presents with post-operative fever. Surgical incision has mild surrounding erythema, some discharge on dressing. She has a PICC in place since 03/10/18. Temp 37 at triage. Temperature 37.4 during my exam. Plan for labs including CBC, chemistries, CRP, blood cultures, UA. 20:30 Reviewed chest x-ray. Cardiomegaly. Evidence of left lower lobe PNA versus atelectasis, bronchitis. Call placed to Dr. Gusman and message left on his cell phone. 21:[address] Edomnd, infectious disease specialist. Plan for admission for further observation of fever, evaluation of blood cultures, rule out PICC line infection. Of note, patient was not hypoxic initially but when she sleeps noted to have saturations down to 87%. 21:15 Consulted with hospitalist service. Dr. Perales accepts admission for fever , LLL atelectasis, r/o bacteremia. The patient has not had a dose of ceftriaxone today. She received 1 g IV. MDM: Differential diagnosis for fever in this postoperative patient was considered including but not limited to pneumonia, atelectasis, septicemia, surgical site infections, PICC line infection, urinary tract infection, viral syndrome, and influenza. - Data Points Imaging Results: Imaging Impressions Chest X-Ray 03/15/18 19:07 Impression: Left lower lobe atelectasis versus pneumonia superimposed on bronchitis. Imaging: I viewed and interpreted images myself Laboratory Results: Laboratory Results 03/15/18 19:50 03/15/18 19:50 03/15/18 03/15/18 19:50 19:50 WBC 5.01 10^3/uL 10^3/uL (3.80-9.50) RBC 3.93 10^6/uL L 10^6/uL (4.18-5.33) Hgb 10.3 g/dL L g/dL (12.6-16.3) Hct 31.5 % L % (38.0-47.0) MCV 80.2 fL L fL (81.5-99.8) MCH 26.2 pg L pg (27.9-34.1) MCHC 32.7 g/dL g/dL (32.4-36.7) RDW 16.8 % H % (11.5-15.2) Plt Count 432 10^3/uL H 10^3/uL (150-400) MPV 8.3 fL L fL (8.7-11.7) Neut % (Auto) 53.9 % % (39.3-74.2) Lymph % (Auto) 26.5 % % (15.0-45.0) [place] % (Auto) 13.4 % H % (4.5-13.0) Eos % (Auto) 5.2 % % (0.6-7.6) Baso % (Auto) 0.6 % % (0.3-1.7) Nucleat RBC Rel Count 0.0 % % (0.0-0.2) Absolute Neuts (auto) 2.70 10^3/uL 10^3/uL (1.70-6.50) Absolute Lymphs (auto) 1.33 10^3/uL 10^3/uL (1.00-3.00) Absolute Monos (auto) 0.67 10^3/uL 10^3/uL (0.30-0.80) Absolute Eos (auto) 0.26 10^3/uL 10^3/uL (0.03-0.40) Absolute Basos (auto) 0.03 10^3/uL 10^3/uL (0.02-0.10) Absolute Nucleated RBC 0.00 10^3/uL 10^3/uL (0-0.01) Immature Gran % 0.4 % % (0.0-1.1) Immature Gran # 0.02 10^3/uL 10^3/uL (0.00-0.10) ESR 99 MM/HR H MM/HR (0-30) Sodium 139 mEq/L mEq/L (135-145) Potassium 3.8 mEq/L mEq/L (3.3-5.0) Chloride 104 mEq/L mEq/L (97-110) Carbon Dioxide 25 mEq/l mEq/l (22-31) Anion Gap 10 mEq/L mEq/L (8-16) BUN 13 mg/dL mg/dL (7-23) Creatinine 0.9 mg/dL mg/dL (0.6-1.0) Estimated GFR > 60 Glucose 93 mg/dL mg/dL (70-100) Calcium 9.0 mg/dL mg/dL (8.5-10.4) C-Reactive Protein 65.4 mg/L H mg/L (<10.0) Medications Given: Discontinued Medications Alteplase, Recombinant (Cathflo Activase) 2 mg IVP EDNOW ONE Stop: 03/15/18 19:38 Last Admin: 03/15/18 19:58 Dose: 2 mg Sodium Chloride (Ns) 1,000 mls @ 0 mls/hr IV ONCE ONE; Wide Open PRN Reason: Protocol Stop: 03/15/18 19:07 Last Admin: 03/15/18 19:50 Dose: 1,000 mls General Time Seen by Provider: 03/15/18 18:32 Initial Vital Signs: Initial Vital Signs Temperature (C) 37.0 C 03/15/18 18:37 Heart Rate 84 03/15/18 18:37 Respiratory Rate 18 03/15/18 18:37 Blood Pressure 139/87 H 03/15/18 18:37 O2 Sat (%) 95 03/15/18 18:37 O2 Delivery Mode Room Air O2 (L/minute) 3 Allergies/Adverse Reactions: nafcillin Allergy (Intermediate, Verified 03/04/18 11:57) Rash NSAIDS (Non-Steroidal Anti-Inflamma Allergy (Intermediate, Verified 03/04/18 11: 57) aspirin Allergy (Verified 02/21/18 07:50) iodine Allergy (Verified 02/21/18 07:50) SOB FOLLOWING AN MRI W/CONTRAST Home Medications: Medication Instructions Recorded Carboxymethylcellulose 1% [Refresh 1 drop EACHEYE PRN PRN 02/21/18 Celluvisc (*)] Cetirizine [ZyrTEC 10 mg (*)] 10 mg PO DAILY 02/21/18 Duloxetine HCl 60 mg PO DAILY 02/21/18 Herbals/Supplements -Info Only 1 ea PO DAILY 02/21/18 Levothyroxine Sodium 200 mcg PO DAILY@06 02/21/18 Loperamide HCl [Imodium 2 mg (*)] 2 mg PO PRN PRN 02/21/18 Triamterene/Hctz 75/50 [Maxzide 1 tab PO DAILY 02/21/18 75-50 mg Tab (*)] amLODIPine BESYLATE [Amlodipine 5 mg PO DAILY 02/21/18 Besylate] lamoTRIgine [Lamotrigine] 200 mg PO DAILY 02/21/18 Diazepam [Valium 5 MG (*)] 5 mg PO Q6HRS PRN tab 03/08/18 Famotidine [Pepcid 20 MG (*)] 20 mg PO BID tab 03/08/18 oxyCODONE IR [Oxycodone Ir (*)] 5 - 10 mg PO Q4HRS PRN tab 03/08/18 Acetaminophen [Tylenol ES 500 mg 1,000 mg PO DAILY@,,03/15/18 (*)] Cyclobenzaprine [Flexeril 10 MG 10 mg PO TID@,,03/15/18 (*)] Gabapentin [Neurontin 400 MG (*)] 400 mg PO TID@,,03/15/18 Lidocaine 4%/Menthol 1% [Icy Hot 1 patch TD DAILY PRN 03/15/18 Lidocaine/Menthol 4%/1% Patch (*)] Vancomycin [Vancomycin (*)] 3.5 gm IV CONT 03/15/18 Departure - Departure Disposition: [facility] Acute Clinical Impression: Atelectasis of left lung, R/o bacteremia Fever Qualifiers: Fever type: unspecified Qualified Code(s): R50.9 - Fever, unspecified Condition: Fair Report Scribed for: Lisbet Lozada Report Scribed by: Preethi Hong Date of Report: 03/15/18 Time of Report: 20:44
[2018-03-15] MEDS ORDERED: NS 1,000 ML IV ONE (19:06)
[2018-03-15] MEDS ORDERED: ALTEPLASE 2 MG VIAL IVP ONE (19:37)
[2018-03-15 20:12] LABS: PLATELET COUNT 432 10^3/uL (150-400)
[2018-03-15] MEDS ORDERED: ACETAMINOPHEN 325 MG TAB PO PRN (22:15)
[2018-03-15] MEDS ORDERED: ONDANSETRON 4 MG/2 ML VIAL IVP PRN (22:15)
[2018-03-15] MEDS ORDERED: ONDANSETRON DISINTEGRATING 4 MG TAB PO PRN (22:15)
[2018-03-15] MEDS ORDERED: oxyCODONE IR 5 MG TAB PO PRN (23:15)
[2018-03-15] MEDS ORDERED: CARBOXYMETHYLCELLULOSE 1% 0.4 ML DROPERETTE EACHEYE PRN (23:45)
[2018-03-15] MEDS ORDERED: LIDOCAINE 4%/MENTHOL 1% PATCH TD PRN (23:45)
[2018-03-15] MEDS ORDERED: DIAZEPAM 5 MG TAB PO PRN (23:45)
[2018-03-15] MEDS ORDERED: LOPERAMIDE HCL 2 MG CAP PO PRN (23:45)
--- NOTE | 2018-03-15 23:53 | PDGENHP ---
History and Physical - Chief Complaint Fever - History of Present Illness 57 yo F who was hospitalized 02/21/18 until 03/08/18 for epidural abscess with associated L4-5 diskitis and MSSA bacteremia presents from SNF with report of a fever. Patient has been at a SNF for the last week recovering from a lengthy hospitalization. She tells me she has been overall doing well and working hard on rehab. She has, however, been having nightly drenching sweats since arriving at the SNF. Then, each of the last 2 days, a fever was noted at her facility. The patient denies any symptoms aside from chills and the aforementioned night sweats. She saw Dr. Edmond in clinic today who thought she was doing well. She did change her Vancomycin over to Ceftriaxone 2g IV q12h due to difficulty dosing Vancomycin at the SNF. In the ED work-up was notable for elevated ESR/CRP. She displays 0/4 SIRS criteria at this time. Case discussed with Dr. Perales; previous records reviewed. History Information - Allergies/Home Medication List Allergies/Adverse Reactions: nafcillin Allergy (Intermediate, Verified 03/04/18 11:57) Rash NSAIDS (Non-Steroidal Anti-Inflamma Allergy (Intermediate, Verified 03/04/18 11: 57) aspirin Allergy (Verified 02/21/18 07:50) iodine Allergy (Verified 02/21/18 07:50) SOB FOLLOWING AN MRI W/CONTRAST Home Medications: Carboxymethylcellulose 1% [Refresh Celluvisc (*)] 1 drop EACHEYE PRN PRN [Last Taken 02/20/18] Cetirizine [ZyrTEC 10 mg (*)] 10 mg PO DAILY 02/21/18 [Last Taken 03/15/18] Duloxetine HCl 60 mg PO DAILY 02/21/18 [Last Taken 03/15/18] Herbals/Supplements -Info Only 1 ea PO DAILY 02/21/18 [Last Taken 03/15/18] Levothyroxine Sodium 200 mcg PO DAILY@06 02/21/18 [Last Taken 03/15/18] Loperamide HCl [Imodium 2 mg (*)] 2 mg PO DAILY PRN 02/21/18 [Last Taken ] Triamterene/Hctz 75/50 [Maxzide 75-50 mg Tab (*)] 1 tab PO DAILY 02/21/18 [Last Taken 02/17/18] amLODIPine BESYLATE [Amlodipine Besylate] 5 mg PO DAILY 02/21/18 [Last Taken ] lamoTRIgine [Lamotrigine] 200 mg PO DAILY 02/21/18 [Last Taken 03/15/18] Acetaminophen [Tylenol ES 500 mg (*)] 1,000 mg PO DAILY@,03/15/18 [Last Taken 03/15/18] Cyclobenzaprine [Flexeril 10 MG (*)] 10 mg PO TID@,03/15/18 [Last Taken 03/15/18] Gabapentin [Neurontin 400 MG (*)] 400 mg PO TID@,03/15/18 [Last Taken ] Lidocaine 4%/Menthol 1% [Icy Hot Lidocaine/Menthol 4%/1% Patch (*)] 1 patch TD DAILY PRN 03/15/18 [Last Taken 03/15/18] Vancomycin [Vancomycin (*)] 3.5 gm IV CONT 03/15/18 [Last Taken 03/15/18 08:30] I have personally reviewed and updated: family history, medical history - Past Medical History hypertension Additional medical history: Epidural abscess s/p washout. L4-5 Diskitis. MSSA bacteremia - Surgical History Additional surgical history: I&D epidural abscess - Family History Positive for: cancer - Social History Smoking Status: Never smoked Review of Systems Review of Systems: ROS: 10pt was reviewed & negative except for what was stated in HPI & below Physical Exam Physical Exam: Temp Pulse Resp BP Pulse Ox 36.8 C 83 18 137/75 H 99 03/15/18 22:45 03/15/18 22:45 03/15/18 22:45 03/15/18 22:45 03/15/18 22:45 O2 (L/minute) 2 Constitutional: no apparent distress, not in pain, obese Eyes: PERRL, EOMI Ears, Nose, Mouth, Throat: moist mucous membranes, no oral mucosal ulcers Cardiovascular: regular rate and rhythym, systolic murmur Respiratory: no respiratory distress, clear to auscultation Gastrointestinal: normoactive bowel sounds, soft, non-tender abdomen Skin: warm, other (Lumbar incision with sutures in place, mild surround erythema and fibrinous exudate) Musculoskeletal: full muscle strength, no muscle tenderness Neurologic: AAOx3, CN II-XII Intact Psychiatric: interacting appropriately, not anxious Lab Data & Imaging Review 03/15/18 19:50 03/15/18 19:50 WBC 5.01 10^3/uL (3.80-9.50) 03/15/18 19:50 RBC 3.93 10^6/uL (4.18-5.33) L 03/15/18 19:50 Hgb 10.3 g/dL (12.6-16.3) L 03/15/18 19:50 Hct 31.5 % (38.0-47.0) L 03/15/18 19:50 MCV 80.2 fL (81.5-99.8) L 03/15/18 19:50 MCH 26.2 pg (27.9-34.1) L 03/15/18 19:50 MCHC 32.7 g/dL (32.4-36.7) 03/15/18 19:50 RDW 16.8 % (11.5-15.2) H 03/15/18 19:50 Plt Count 432 10^3/uL (150-400) H 03/15/18 19:50 MPV 8.3 fL (8.7-11.7) L 03/15/18 19:50 Neut % (Auto) 53.9 % (39.3-74.2) 03/15/18 19:50 Lymph % (Auto) 26.5 % (15.0-45.0) 03/15/18 19:50 [place] % (Auto) 13.4 % (4.5-13.0) H 03/15/18 19:50 Eos % (Auto) 5.2 % (0.6-7.6) 03/15/18 19:50 Baso % (Auto) 0.6 % (0.3-1.7) 03/15/18 19:50 Nucleat RBC Rel Count 0.0 % (0.0-0.2) 03/15/18 19:50 Absolute Neuts (auto) 2.70 10^3/uL (1.70-6.50) 03/15/18 19:50 Absolute Lymphs (auto) 1.33 10^3/uL (1.00-3.00) 03/15/18 19:50 Absolute Monos (auto) 0.67 10^3/uL (0.30-0.80) 03/15/18 19:50 Absolute Eos (auto) 0.26 10^3/uL (0.03-0.40) 03/15/18 19:50 Absolute Basos (auto) 0.03 10^3/uL (0.02-0.10) 03/15/18 19:50 Absolute Nucleated RBC 0.00 10^3/uL (0-0.01) 03/15/18 19:50 Immature Gran % 0.4 % (0.0-1.1) 03/15/18 19:50 Immature Gran # 0.02 10^3/uL (0.00-0.10) 03/15/18 19:50 ESR 99 MM/HR (0-30) H 03/15/18 19:50 Sodium 139 mEq/L (135-145) 03/15/18 19:50 Potassium 3.8 mEq/L (3.3-5.0) 03/15/18 19:50 Chloride 104 mEq/L (97-110) 03/15/18 19:50 Carbon Dioxide 25 mEq/l (22-31) 03/15/18 19:50 Anion Gap 10 mEq/L (8-16) 03/15/18 19:50 BUN 13 mg/dL (7-23) 03/15/18 19:50 Creatinine 0.9 mg/dL (0.6-1.0) 03/15/18 19:50 Estimated GFR > 60 03/15/18 19:50 Glucose 93 mg/dL (70-100) 03/15/18 19:50 Calcium 9.0 mg/dL (8.5-10.4) 03/15/18 19:50 C-Reactive Protein 65.4 mg/L (<10.0) H 03/15/18 19:50 Urine Color YELLOW 03/15/18 22:05 Urine Appearance CLEAR 03/15/18 22:05 Urine pH 5.0 (5.0-7.5) 03/15/18 22:05 Ur Specific [place] 1.011 (1.002-1.030) 03/15/18 22:05 Urine Protein NEGATIVE (NEGATIVE) 03/15/18 22:05 Urine Ketones NEGATIVE (NEGATIVE) 03/15/18 22:05 Urine Blood NEGATIVE (NEGATIVE) 03/15/18 22:05 Urine Nitrate NEGATIVE (NEGATIVE) 03/15/18 22:05 Urine Bilirubin NEGATIVE (NEGATIVE) 03/15/18 22:05 Urine Urobilinogen NEGATIVE EU (0.2-1.0) 03/15/18 22:05 Ur Leukocyte Esterase NEGATIVE (NEGATIVE) 03/15/18 22:05 Urine RBC 1-3 /hpf (0-3) 03/15/18 22:05 Urine WBC 1-3 /hpf (0-3) 03/15/18 22:05 Ur Epithelial Cells TRACE /lpf (NONE-1+) 03/15/18 22:05 Urine Mucus 1+ /lpf (NONE-1+) 03/15/18 22:05 Urine Glucose NEGATIVE (NEGATIVE) 03/15/18 22:05 Imaging Review: Imaging Impressions Chest X-Ray 03/15/18 19:07 Impression: Left lower lobe atelectasis versus pneumonia superimposed on bronchitis. Assessment & Plan Assessment: 57 yo F who was hospitalized 02/21/18 until 03/08/18 for epidural abscess with associated L4-5 diskitis and MSSA bacteremia presents from SNF with report of a fever. Plan: 1. Fever - Unclear if this represents any sort of treatment failure; ESR and CRP are elevated but CRP is decreased from prior check and patient otherwise displays 0/4 SIRS criteria currently. CXR and UA do not reveal any evidence of infection. Lumbar incision has mild erythema but does not appear overtly infected; LUE PICC also appears non-infected. Patient denies localizing symptoms but does report chills and night sweats. Antibiotics were changed from Vancomycin to Ceftriaxone today, but I doubt this is contributing since her fever started prior to this change. - Admit for observation - Blood cultures ordered, will also obtain procalcitonin - Wound care consulted for lumbar incision - Infectious disease consult placed 2. MSSA epidural abscess w/ L4-5 diskitis - Admitted from 02/21-03/08 for management of this. She follows with Dr. Edmond and has antibiotics planned until 04/16/18. Vancomycin was changed to Ceftriaxone 2 g IV q12h during clinic visit on 03/15. - Work-up of fever as above - Continue Ceftriaxone 2 g IV q12h - ID consulted - Continue home pain medications 3. Hypertension - Continue home medications 4. Normocytic anemia - Mildly decreased from previous values, will check ferritin. 5. GERD - Continue H2B 6. Hypothyroid - Continue LTX Diet - Regular Code - Full PPx - SCDs Dispo - Admit under observation status
[2018-03-16] MEDS: LEVOTHYROXINE 200 MCG TAB PO SCH (05:50)
[2018-03-16 06:12] LABS: PLATELET COUNT 400 10^3/uL (150-400)
[2018-03-16] MEDS: amLODIPine BESYLATE 5 MG TAB PO SCH (08:40)
[2018-03-16] MEDS: CYCLOBENZAPRINE 10 MG TAB PO SCH ×3 (08:40→16:48)
[2018-03-16] MEDS: FAMOTIDINE 20 MG TAB PO SCH ×2 (08:41→22:01)
[2018-03-16] MEDS: ACETAMINOPHEN 500 MG TAB PO SCH ×3 (08:41→16:48)
--- NOTE | 2018-03-16 08:41 | GCON ---
[f rep st] CONSULTATION BRIEF COURTESY NOTE CHIEF COMPLAINT: Fever. HISTORY OF PRESENT ILLNESS: The patient is a 57-year-old female who was hospitalized 02/21/2018 [facility] 03/08/2018 for epidural abscess with associated L4-5 diskitis and MSSA bacteremia who presented fro m SNF with reports of fever. The patient had been in the SNF for the last week, recovering. She sta gurinder that they lifted her last Wednesday with a gait belt and since then she has had some back pain. Per reports, she has been having some night sweats and fevers. The patient denies any other symptoms as puneet from chill and aforementioned night sweats. She saw Dr. Edmond who is an Infectious Disease doct or, did change her vancomycin over to ceftriaxone 2 g IV q.12 due to the difficulty with dosing of va ncomycin at the nursing facility. The patient was admitted to Internal Medicine with concerns of a p ossible pneumonia. We were asked to get involved as she had a recent surgery. ALLERGIES: Nafcillin, NSAID, aspirin, and iodine. HOME MEDICATIONS: Refresh eye drops, cetirizine, duloxetine, herbal supplements, levothyroxine, eric ramide, triamterene, hydrochlorothiazide, amlodipine, lamotrigine, Tylenol, Flexeril, Neurontin, lido bk patch. PAST MEDICAL HISTORY: Significant for: 1. Hypertension. 2. Epidural abscess, status post washout. 3. L4-5 diskitis. 4. MSSA bacteremia. PAST SURGICAL HISTORY: I and D of epidural abscess as aforementioned. FAMILY HISTORY: Positive for cancer. SOCIAL HISTORY: The patient has never smoked. She is single and lives in the [facility]. REVIEW OF SYSTEMS: Complete 10-point review of systems reviewed and negative except for aforemention ed in HPI. PHYSICAL EXAM: VITAL SIGNS: Most recent vital signs, blood pressure 130/70, 84 MAP, 72 heart rate, 18 respirations, 95% on room air, and temperature 36.7. HEENT: Head is normocephalic, atraumatic. P upils are equal, round, reactive to light. EOMI is intact. Full visual salgado by confrontation. Ear s are patent. Nose is patent. NECK: Soft and supple. No midline tenderness. Full range of motion in flexion, extension, lateral bending, rotation. No nuchal rigidity. RESPIRATORY/CARDIAC: Deferr ed. ABDOMEN: Deferred. /RECTAL: Deferred. NEURO: The patient is awake, alert, oriented to nam e, place, location, date, time, and situation. Memory is intact to immediate, past, and current even ts. Speech, no aphasia, dysarthria, dysphonia. Cranial nerves 2-12 grossly intact. Motor, patient has 5/5 strength in all muscle groups of bilateral upper and lower extremities to include deltoids, b iceps, triceps, brachioradialis, wrist flexion extensors, resource development director intrinsic fingers, iliopsoas, quadrice ps, hamstring, plantar flexion, dorsiflexion, EHL testing. Sensation is grossly intact to light touc h throughout all dermatome distributions upper and lower extremities. Negative straight leg raise. Negative CLARITZA test. Reflexes of biceps, triceps, brachioradialis, knee jerk and ankle jerk are 2+ o ut of 4. Toes are downgoing bilaterally. Forman's negative. Babinski negative. No evidence of nalini nus. SKIN: Incision was evaluated. There is some localized erythema just around the incision that appears to be inflammatory. I did not express any discharge from the incision itself. There was kyle e fibrous tissue of the incision itself. MEDICAL DECISION MAKING/DIAGNOSTIC STUDIES/LABORATORY DATA: 03/16/2018, shows a normal white count o f 4.19 with an H and H of 10.1 and 31.0 with a platelet count of 400. The patient had a sedimentatio n rate of 99 on 03/15/2018. No prior sedimentation rate in the computer noted. Chemistry on 018, shows sodium 144, potassium 3.6, chloride 109, CO2 25, BUN 10, creatinine of 0.8, and glucose of 96. C-reactive protein was done on March 15, which was 65.4. Prior sedimentation rate was ordered a nd done on 02/23/2018 and was 190.7, so this is a decrease from 190 to 65.4. IMAGING: Chest x-ray was reviewed. Report on 03/15/2018 shows a left lower lobe atelectasis versus pneumonia. We will defer to Internal Medicine for further evaluation and treatment. ASSESSMENT: 1. Fevers. 2. History of wound washout with Methicillin-sensitive Staphylococcus aureus infection, treated with Infectious Disease. 3. Possible pneumonia. 4. Back pain without radicular symptoms. No numbness, tingling, weakness or pain in the extremities x4. PLAN/DISCUSSION: Lorena is a 57-year-old female who was admitted to internal medicine service. We were asked to evaluate her. Her incision was seen today, both by myself and Dr. Vallecillo. I did send a picture of this to Dr. Gusman as well. There appears to be more fibrous tissue around the incisio n itself. I did not express any discharge. Wound Care will be seeing the patient as well. We will get an evaluation from Infectious Disease as well. We will continue to follow her. Her C-reactive p rotein has dropped from 190 to 65.4. She does not have a white count at this time. We will continue to follow her. I answered all her questions and concerns. She understands and agrees. /[id number]/MODL
[2018-03-16] MEDS: DULoxetine 60 MG CAP PO SCH (08:42)
[2018-03-16] MEDS: lamoTRIgine 100 MG TAB PO SCH (08:42)
[2018-03-16] MEDS: GABAPENTIN 400 MG CAP PO SCH ×3 (08:42→16:48)
[2018-03-16] MEDS ORDERED: TRIAMTERENE/HCTZ 75/50 1 EACH TAB PO SCH (09:00)
[2018-03-16] MEDS ORDERED: Herbals/Supplements -Info Only PO SCH (09:00)
[2018-03-16] MEDS ORDERED: CETIRIZINE 10 MG TAB PO SCH (09:00)
[2018-03-16] MEDS ORDERED: MAGNESIUM SULF 2 GM/WATER 50 ML IV ONE (09:17)
--- NOTE | 2018-03-16 12:24 | ASMTCMCOM ---
CM Note CM Note Notes: 03/16/2018 Case Management Note Met w/pt. Pt admitted from [facility] for treatment of fever, r/o bacteremia, and atelectasis. Pt was admitted to [facility] from 02/21-03/08 with L4-5 diskitis with MSSA. Pt d/c from [facility] on 03/08 to [facility]. Pt is willing to return to [facility] if discharging MD writes specific orders for wound care and PICC line. Discussed with Annabelle from [facility]. [facility] agreeable to pt returning upon discharge. Faxed updates via [employer]. Pt had multiple requests for case management focused largely on wanting assistance to complete paperwork for [employer]. Encouraged pt to rely on local friend and family supports or assistance provided by [employer] to assist with completing paperwork. Case Management will assist if necessary tomorrow. Case Management d/c poc: return to [facility] Case Management to follow. Date Signed: 03/16/2018 12:23 PM Electronically Signed By:Meeta Woody RN
--- NOTE | 2018-03-16 14:04 | WOCRNPDOC ---
WOCRN Advanced Assessment Note - Skin Integrity Problem, Advanced Assess Lower Back Surgical Wound/Incision Dressing Type: Open to Air Closure Description: Sutures, Not Approximated Exudate Amount: None Annie Wound Tissue: Erythema, Swollen Annie Wound Swelling: Mild Wound Edges: Thick Site Measurement - Head-to-Toe Length X Width X Depth (cm): 3.8x0.9x0.2 Skin Integrity Problem Comment: Hard dry slough/fibrinous tissue between wound edges. Spoke with Donte MCLEAN regarding this patient. Sutures are to stay in for one more week at least. Please don't moisten the wound bed. Wound may need debridement after sutures are removed. Cover with leukomed. Wound care will sign off. Please reconsult per Neurosurgery. Informed Homa PETERSON.
--- NOTE | 2018-03-16 15:38 | PCMIDPN ---
Assessment/Plan: Assessment/Plan: * Fever: No further fever since patient was admitted overnight. Patient feels at her typical baseline other than persistent back pain. Wound does not show signs of infection. Possible that patient's fever may be related to drug fever from vancomycin which has now been transition to ceftriaxone. Drug fever can take several days to resolve. Other consideration would be recurrent back infection although given overall improvement and decreasing inflammatory markers suspect this is less likely. If fever were to be persistent after stopping vancomycin, then could consider reimaging of spine to ensure no recurrent process. PICC associated bacteremia or fungemia would be additional consideration. Continue ceftriaxone 2 g IV q.12 hours given previous CSF involvement. Follow up blood cultures as available. Given clinical stability and overall appearance, think reasonable to transition back to assisted rehabilitation. * MSSA bacteremia/epidural abscess: Continue ceftriaxone with plans for 8 weeks total antibiotic therapy. Care coordinated with hospitalist and discharge planning today. 03/16/18 17:12 03/16/18 17:16 03/16/18 17:16 Subjective: Pt states that when she got home from her appointment at [facility], she was tired and went down for an afternoon nap with 3 blankets, as she is normally cold prior to going to bed. At 16:00 the physical therapist woke her from the nap, noticing that she looked flushed. Although she notes that she felt fine, her temperature was taken a few times and measured at 100-103. Subsequently she was sent to the ED. When asked how she is doing today she states, Im feeling fine. Denies associated chills, nausea, diarrhea, or loss in appetite. Pt is requesting specific instructions for PICC and wound care to be given to [facility] if she is to return. She also c/o of intolerable dry mouth. She takes oxycodone infrequently and Tylenol T.I.D. Patient notes some increase in back pain after she was helped back into bed with use of a belt after she had stooped down to sweet pickle maker her phone. Patient was changed from vancomycin to ceftriaxone yesterday based on difficulty with vancomycin administration. Please see note in [place] by Dr. Edmond dated 03/15/18 for full details which has been reviewed by me today. IYanely, am scribing for, and in the presence of, Dr. Juan Miller. I, Dr. Juan Miller, personally performed the services described in this documentation, as scribed by Yanely Gallegos in my presence, and it is both accurate and complete. Objective: Vital Signs Temp Pulse Resp BP Pulse Ox 36.7 C 76 18 116/67 96 03/16/18 15:24 03/16/18 15:24 03/16/18 15:24 03/16/18 15:24 03/16/18 15:24 Laboratory Results 03/16/18 05:50 03/16/18 05:50 03/15/18 03/16/18 03/17/18 05:59 05:59 05:59 Intake Total 1650 Output Total 450 Balance 1200 ESR 99 MM/HR (0-30) H 03/15/18 19:50 C-Reactive Protein 65.4 mg/L (<10.0) H 03/15/18 19:50 Ceftriaxone # 1 Blood cultures x2 pending - Physical Exam General Appearance: alert, no apparent distress EENT: other (moist mucous membranes), No scleral icterus, No conjunctival petechiae Respiratory: lungs clear, normal breath sounds Cardiac/Chest: regular rate, rhythm, No systolic murmur Abdomen: non-tender, soft, No distended Back: other (Lumbar incision with surrounding erythema to margins, wound bed with brownish fibrinous slough, mild warmth, non-tender.), No spine tenderness Skin: warm/dry, No rash Neuro/Psych: alert - Line/s LUE PICC Lines: No drainage, No erythema - Time Spent With Patient Time Spent with Patient: greater than 35 minutes Time Spent with Patient: Greater than 35 minutes spent on this patients care, greater than 50% of time spent counseling, educating, and coordinating care regarding the above mentioned plan. ICD10 Worksheet Patient Problems: Problems Problem Status Onset Atelectasis of left lung Acute Fever Acute CSF leak Acute Herniated intervertebral disc of lumbar spine Acute Low back pain Acute Lumbar radicular pain Acute
--- NOTE | 2018-03-16 16:16 | HOSPPROG ---
Hospitalist Progress Note Assessment/Plan: 57 yo F who was hospitalized 02/21/18 until 03/08/18 for epidural abscess with associated L4-5 diskitis and MSSA bacteremia presents from SNF with report of a fever. 1. Fever: Infectious work up unrevealing. Surgical site and PICC without active infection. Query drug fever from vancomycin. ID consulted. Continue ceftriaxone and follow up blood cultures. 2. MSSA epidural abscess w/ L4-5 diskitis: Admitted from 02/21-03/08 for management of this. She follows with Dr. Edmond and has antibiotics planned until 04/16/18. Vancomycin was changed to Ceftriaxone 2 g IV q12h during clinic visit on 03/15. Wound care was consulted. Continue home pain medications. 3. Hypertension: BP controlled. Continue home medications 4. Normocytic anemia: Mildly decreased from previous values. Ferritin not <100. No e/o bleeding. Suspect due to inflammation. 5. GERD: Continue H2B 6. Hypothyroid: Continue LTX Diet - Regular Code - Full PPx - SCDs Dispo - Continue admission as unable to facilitate discharge back to SNF this afternoon. Plan to discharge in AM. Subjective: No fevers or chills. Having aching pain in back from when provider at SNF tried to pick patient up from floor with gait belt. Otherwise pain is controlled when not moving around. No cough, sob, urinary sxs, n/v/d. Objective: Vital Signs Temp Pulse Resp BP Pulse Ox 36.7 C 76 18 116/67 96 03/16/18 15:24 03/16/18 15:24 03/16/18 15:24 03/16/18 15:24 03/16/18 15:24 Laboratory Results 03/16/18 05:50 03/16/18 05:50 03/15/18 03/16/18 03/17/18 05:59 05:59 05:59 Intake Total 1650 Output Total 450 Balance 1200 - Physical Exam Constitutional: no apparent distress, appears nourished, not in pain, obese Eyes: PERRL, anicteric sclera, EOMI Ears, Nose, Mouth, Throat: moist mucous membranes, hearing normal, ears appear normal, no oral mucosal ulcers Cardiovascular: regular rate and rhythym, no murmur, rub, or gallop Respiratory: no respiratory distress, no rales or rhonchi, clear to auscultation Gastrointestinal: normoactive bowel sounds, soft, non-tender abdomen, no palpable masses Genitourinary: no bladder fullness, no bladder tenderness, no renal bruits Skin: other (healing 2 inch vertical incision in lower back with granulation tissue, no induration or fluctuance) Musculoskeletal: full muscle strength, no muscle tenderness, normal joint ROM Neurologic: AAOx3, sensation intact bilaterally Psychiatric: interacting appropriately, not anxious, not encephalopathic, thought process linear ICD10 Worksheet Patient Problems: Problems Problem Status Onset Atelectasis of left lung Acute Fever Acute CSF leak Acute Herniated intervertebral disc of lumbar spine Acute Low back pain Acute Lumbar radicular pain Acute
--- NOTE | 2018-03-16 17:36 | PDIAF ---
- Diagnosis Diagnosis: MSSA bacteremia/epidural abscess Code Status: Full Code - Medication Management Discharge Medications: Medications to Continue on Transfer Carboxymethylcellulose 1% [Refresh Celluvisc (*)] 1 drop EACHEYE PRN PRN [Last Taken 02/20/18] Cetirizine [ZyrTEC 10 mg (*)] 10 mg PO DAILY 02/21/18 [Last Taken 03/15/18] Duloxetine HCl 60 mg PO DAILY 02/21/18 [Last Taken 03/15/18] Herbals/Supplements -Info Only 1 ea PO DAILY 02/21/18 [Last Taken 03/15/18] Levothyroxine Sodium 200 mcg PO DAILY@02/21/18 [Last Taken 03/15/18] Loperamide HCl [Imodium 2 mg (*)] 2 mg PO DAILY PRN 02/21/18 [Last Taken ] Triamterene/Hctz 75/50 [Maxzide 75-50 mg Tab (*)] 1 tab PO DAILY 02/21/18 [Last Taken 02/17/18] amLODIPine BESYLATE [Amlodipine Besylate] 5 mg PO DAILY 02/21/18 [Last Taken ] lamoTRIgine [Lamotrigine] 200 mg PO DAILY 02/21/18 [Last Taken 03/15/18] Diazepam [Valium 5 MG (*)] 5 mg PO Q6HRS PRN tab 03/08/18 [Last Taken Unknown] Famotidine [Pepcid 20 MG (*)] 20 mg PO BID tab 03/08/18 [Last Taken 03/15/18 am dose only] oxyCODONE IR [Oxycodone Ir (*)] 5 - 10 mg PO Q4HRS PRN tab 03/08/18 [Last Taken 03/15/18] Acetaminophen [Tylenol ES 500 mg (*)] 1,000 mg PO DAILY@,,03/15/18 [Last Taken 03/15/18] Cyclobenzaprine [Flexeril 10 MG (*)] 10 mg PO TID@,,03/15/18 [Last Taken 03/15/18] Gabapentin [Neurontin 400 MG (*)] 400 mg PO TID@,03/15/18 [Last Taken ] Lidocaine 4%/Menthol 1% [Icy Hot Lidocaine/Menthol 4%/1% Patch (*)] 1 patch TD DAILY PRN 03/15/18 [Last Taken 03/15/18] Vancomycin [Vancomycin (*)] 3.5 gm IV CONT 03/15/18 [Last Taken 03/15/18 08:30] Shelter Antibiotics: Ceftriaxone 2 g IV q.12 hours Shelter Antibiotic Stop Date: 04/16/18 Discharge Medications: Refer to the Discharge Home Medication list for PRN reason. PICC Care - Routine: Yes - Labs/Radiology CBC w/diff Date: 03/21/18 (Weekly Q Wednesday) CMP Date: 03/21/18 (Weekly Q Wednesday) CRP Date: 03/21/18 (Weekly Q Wednesday) Call or Fax Lab and Imaging Results to: Dr. Edmond, - Follow Up Care Current Providers and Referrals: Meeta Aponte MD [Primary Care Provider] - As per Instructions
[2018-03-16] MEDS: CIPROFLOXACIN HCL/DEXAMETH 7.5 ML OTIC DROPS RTEAR SCH (22:01)
[2018-03-17] MEDS: GABAPENTIN 400 MG CAP PO SCH ×2 (00:02→09:04)
[2018-03-17] MEDS: ACETAMINOPHEN 500 MG TAB PO SCH ×2 (00:02→09:02)
[2018-03-17] MEDS: CYCLOBENZAPRINE 10 MG TAB PO SCH ×2 (00:02→09:04)
[2018-03-17] MEDS: LEVOTHYROXINE 200 MCG TAB PO SCH (05:28)
[2018-03-17 07:37] VITALS: BP 148/97
[2018-03-17] MEDS ORDERED: CETIRIZINE 10 MG TAB PO SCH (09:00)
[2018-03-17] MEDS: CIPROFLOXACIN HCL/DEXAMETH 7.5 ML OTIC DROPS RTEAR SCH (09:04)
[2018-03-17] MEDS: FAMOTIDINE 20 MG TAB PO SCH (09:04)
[2018-03-17] MEDS: amLODIPine BESYLATE 5 MG TAB PO SCH (09:04)
[2018-03-17] MEDS: lamoTRIgine 100 MG TAB PO SCH (09:04)
[2018-03-17] MEDS: DULoxetine 60 MG CAP PO SCH (09:04)
--- NOTE | 2018-03-17 09:05 | PDIAF ---
- Diagnosis Diagnosis: MSSA bacteremia/epidural abscess Code Status: Full Code - Medication Management Discharge Medications: Medications to Continue on Transfer Carboxymethylcellulose 1% [Refresh Celluvisc (*)] 1 drop EACHEYE PRN PRN [Last Taken 02/20/18] Cetirizine [ZyrTEC 10 mg (*)] 10 mg PO DAILY 02/21/18 [Last Taken 03/15/18] Duloxetine HCl 60 mg PO DAILY 02/21/18 [Last Taken 03/15/18] Herbals/Supplements -Info Only 1 ea PO DAILY 02/21/18 [Last Taken 03/15/18] Levothyroxine Sodium 200 mcg PO DAILY@02/21/18 [Last Taken 03/15/18] Loperamide HCl [Imodium 2 mg (*)] 2 mg PO DAILY PRN 02/21/18 [Last Taken ] amLODIPine BESYLATE [Amlodipine Besylate] 5 mg PO DAILY 02/21/18 [Last Taken ] lamoTRIgine [Lamotrigine] 200 mg PO DAILY 02/21/18 [Last Taken 03/15/18] Diazepam [Valium 5 MG (*)] 5 mg PO Q6HRS PRN tab 03/08/18 [Last Taken Unknown] Famotidine [Pepcid 20 MG (*)] 20 mg PO BID tab 03/08/18 [Last Taken 03/15/18 am dose only] oxyCODONE IR [Oxycodone Ir (*)] 5 - 10 mg PO Q4HRS PRN tab 03/08/18 [Last Taken 03/15/18] Acetaminophen [Tylenol ES 500 mg (*)] 1,000 mg PO DAILY@,,03/15/18 [Last Taken 03/15/18] Cyclobenzaprine [Flexeril 10 MG (*)] 10 mg PO TID@,,03/15/18 [Last Taken 03/15/18] Gabapentin [Neurontin 400 MG (*)] 400 mg PO TID@,,03/15/18 [Last Taken ] Lidocaine 4%/Menthol 1% [Icy Hot Lidocaine/Menthol 4%/1% Patch (*)] 1 patch TD DAILY PRN 03/15/18 [Last Taken 03/15/18] Ciprofloxacin/Dexamethasone [Ciprodex] 4 drops RTEAR BID otic.btl 03/17/18 [ Last Taken Unknown] cefTRIAXone [Rocephin] 2 gm IV Q12H vial 03/17/18 [Last Taken Unknown] Pbx Inspector Antibiotics: Ceftriaxone 2 g IV q.12 hours Mcfp Antibiotic Stop Date: 04/16/18 Discharge Medications: Refer to the Discharge Home Medication list for PRN reason. PICC Care - Routine: Yes - Orders Wound Care Instructions: Lower Back Surgical Wound/Incision. Dressing Type: Open to Air. Closure Description: Sutures, Not Approximated. Exudate Amount: None. Annie Wound Tissue: Erythema, Swollen. Annie Wound Swelling: Mild. Wound Edges: Thick. Site Measurement - Head-to-Toe Length X Width X Depth (cm): 3.8x0.9x0.2. Skin Integrity Problem Comment: Hard dry slough/fibrinous tissue between wound edges. Spoke with Donte MCLEAN regarding this patient. Sutures are to stay in for one more week at least. Please don't moisten the wound bed. Wound may need debridement after sutures are removed. Cover with leukomed. Additional Instructions: 1. We did not find a clear cause of your fever. This may have been due to vancomycin, the antibiotic that you were previously on. 2. We have started you on an ear drop for your right ear pain. You should continue this for 5 days. - Labs/Radiology CBC w/diff Date: 03/21/18 (Weekly Q Wednesday) CMP Date: 03/21/18 (Weekly Q Wednesday) CRP Date: 03/21/18 (Weekly Q Wednesday) Call or Fax Lab and Imaging Results to: Dr. Edmond, - Follow Up Care Current Providers and Referrals: Meeta Aponte MD [Primary Care Provider] - As per Instructions
--- NOTE | 2018-03-17 09:18 | NEUSURGPN ---
Assessment/Plan: 57y/o female 2wks s/p I&D of episudral abscess. Appreciate ID, medicine and wound care recommendations. Patient has follow up tomorrow in our office to continue to closely monitor incision Patient needs twice daily dressing changes with dry gauze Okay to d/c Please notify NS with any change in neuro/motor exam Subjective: leg pain and zingers still present but improving. Denies any fevers or chills Objective: NAD A&Ox3 MAEX4 5/5 and equal in BUE and BLE Incision with some stable fibrinous tissue. No erythema or malodor - Physician Discussed Patient with Dr.: Naseem Neurosurgery Physical Exam - Vitals, I&O, Labs I and O 03/16/18 03/17/18 03/18/18 05:59 05:59 05:59 Intake Total 1650 2540 Output Total 450 Balance 1200 2540 Weight 95.708 kg Intake: Oral (ml) 550 2350 IV Infused (ml) 1100 190 Magnesium Sulf 2 gm/Water 60 50 ml @ 50 mls/hr IV ONCE ONE Rx#:[id number] cefTRIAXone 2 gm In Ns 50 130 ml @ 100 mls/hr IV Q12H ARAVIND Rx#:[id number] Output: Urine (ml) 450 Other: Intake Quantity Yes Sufficient Number of Voids 1 Toilet 1 1 Number of Stools Toilet 1 Vital Signs Temp Pulse Resp BP Pulse Ox 36.7 C 74 15 148/97 H 94 03/17/18 07:34 03/17/18 07:34 03/17/18 07:34 03/17/18 07:34 03/17/18 07:34 Laboratory Results 03/16/18 05:50 03/16/18 05:50 ICD10 Worksheet Patient Problems: Problems Problem Status Onset Atelectasis of left lung Acute Fever Acute CSF leak Acute Herniated intervertebral disc of lumbar spine Acute Low back pain Acute Lumbar radicular pain Acute
--- NOTE | 2018-03-17 09:23 | ASMTLACE ---
MAHIE Length of stay for Answers: 1 day current admission Acuity / Level of Answers: No Care: Did the patient have an inpatient admission? Comorbidities - select Answers: Other Notes: Hypothyroid; HTN, bacte rem all that apply ia # of Emergency department Answers: 3-4 visits in the last 6 months Social determinants Answers: Mental health diagnosis (anxiety, depression, pers onality disorders, etc.) Score: 8 Date Signed: 03/17/2018 09:23 AM Electronically Signed By:Meeta Woody RN
--- NOTE | 2018-03-17 11:41 | PDIAF ---
- Diagnosis Diagnosis: MSSA bacteremia/epidural abscess Code Status: Full Code - Medication Management Discharge Medications: Medications to Continue on Transfer Carboxymethylcellulose 1% [Refresh Celluvisc (*)] 1 drop EACHEYE PRN PRN [Last Taken 02/20/18] Cetirizine [ZyrTEC 10 mg (*)] 10 mg PO DAILY 02/21/18 [Last Taken 03/15/18] Duloxetine HCl 60 mg PO DAILY 02/21/18 [Last Taken 03/15/18] Herbals/Supplements -Info Only 1 ea PO DAILY 02/21/18 [Last Taken 03/15/18] Levothyroxine Sodium 200 mcg PO DAILY@02/21/18 [Last Taken 03/15/18] amLODIPine BESYLATE [Amlodipine Besylate] 5 mg PO DAILY 02/21/18 [Last Taken ] lamoTRIgine [Lamotrigine] 200 mg PO DAILY 02/21/18 [Last Taken 03/15/18] Diazepam [Valium 5 MG (*)] 5 mg PO Q6HRS PRN tab 03/08/18 [Last Taken Unknown] Famotidine [Pepcid 20 MG (*)] 20 mg PO BID tab 03/08/18 [Last Taken 03/15/18 am dose only] oxyCODONE IR [Oxycodone Ir (*)] 5 - 10 mg PO Q4HRS PRN tab 03/08/18 [Last Taken 03/15/18] Acetaminophen [Tylenol ES 500 mg (*)] 1,000 mg PO DAILY@,,03/15/18 [Last Taken 03/15/18] Cyclobenzaprine [Flexeril 10 MG (*)] 10 mg PO TID@,,03/15/18 [Last Taken 03/15/18] Gabapentin [Neurontin 400 MG (*)] 400 mg PO TID@,,03/15/18 [Last Taken ] Lidocaine 4%/Menthol 1% [Icy Hot Lidocaine/Menthol 4%/1% Patch (*)] 1 patch TD DAILY PRN 03/15/18 [Last Taken 03/15/18] Ciprofloxacin/Dexamethasone [Ciprodex] 4 drops RTEAR BID otic.btl 03/17/18 [ Last Taken Unknown] Loperamide HCl [Imodium 2 mg (*)] 2 mg PO DAILY #0 03/17/18 [Last Taken 03/15/18 ] Loperamide HCl [Imodium 2 mg (*)] 2 mg PO DAILY PRN cap 03/17/18 [Last Taken Unknown] cefTRIAXone [Rocephin] 2 gm IV Q12H vial 03/17/18 [Last Taken Unknown] Longterm Antibiotics: Ceftriaxone 2 g IV q.12 hours Switch Cleaner Antibiotic Stop Date: 04/16/18 Discharge Medications: Refer to the Discharge Home Medication list for PRN reason. PICC Care - Routine: Yes (Please perform regular PICC care.) - Orders Wound Care Instructions: Lower Back Surgical Wound/Incision. Dressing Type: Open to Air. Closure Description: Sutures, Not Approximated. Exudate Amount: None. Annie Wound Tissue: Erythema, Swollen. Annie Wound Swelling: Mild. Wound Edges: Thick. Site Measurement - Head-to-Toe Length X Width X Depth (cm): 3.8x0.9x0.2. Skin Integrity Problem Comment: Hard dry slough/fibrinous tissue between wound edges. Spoke with Donte MCLEAN regarding this patient. Sutures are to stay in for one more week at least (through 03/23). Please don't moisten the wound bed. Wound may need debridement after sutures are removed. Cover with leukomed. Patient needs twice daily dressing changes with dry gauze Additional Instructions: 1. We did not find a clear cause of your fever. This may have been due to vancomycin, the antibiotic that you were previously on. 2. We have started you on an ear drop for your right ear pain. You should continue this for 5 days. - Labs/Radiology CBC w/diff Date: 03/21/18 (Weekly Q Wednesday) CMP Date: 03/21/18 (Weekly Q Wednesday) CRP Date: 03/21/18 (Weekly Q Wednesday) Call or Fax Lab and Imaging Results to: Dr. Edmond, - Follow Up Care Current Providers and Referrals: Meeta Aponte MD [Primary Care Provider] - As per Instructions
--- NOTE | 2018-03-17 14:43 | ASMTDCNOTE ---
Case Management Discharge Discharge Order Complete? Answers: Yes Patient to Obtain Answers: Other Notes: [facility] Medications Transportation Arranged Answers: Other Notes: transport arranged by [facility] Faxed Final Orders Answers: Yes Notes: [facility] Agency/Facility Transfer Answers: Yes Notes: [facility] rehab Report Printed & Faxed to Receiving Agency Discharge Comments Notes: 03/17/2018 Case Management Note Pt to discharge back to [facility]. Faxed final orders. [facility]. RN to call report. Date Signed: 03/17/2018 09:58 AM Electronically Signed By:Meeta Woody RN
--- NOTE | 2018-03-17 14:44 | ASDISCHSUM ---
Discharge Information Plan Status:SNF Medically Cleared to Leave:03/17/2018 Discharge Date:03/17/2018 12:45 PM CM D/C Disposition:[facility] Facility ADT D/C Disposition:[facility] Facility Projected Discharge Date:03/16/2018 11:00 AM Transportation at D/C:Wheelchair Van Discharge Delay Reason: Follow-Up Date:03/16/2018 11:00 AM Discharge Slot: Final Diagnosis: Placement Information Referral Type:*Fpc/SNF Referral ID:[facility]-[id number] Provider Name:[facility] Address 1:[address] Address 2: City:[place] Selection Factors: State:[place] Patient Contact Information Contact Name:ANGELINA Relationship:Friend Address: City:[place] Alternate Phone: State/Zip Code:[place] [address] Email: Financial Information Financial Class:Worker's Compensation Primary Plan Desc:[employer]GIN Primary Plan Number:[id number] Secondary Plan Desc:[employer] Secondary Plan Number:[id number] Assessment Information LACE LACE Length of stay for Answers: 1 day current admission Acuity / Level of Answers: No Care: Did the patient have an inpatient admission? Comorbidities - select Answers: Other Notes: Hypothyroid; HTN, bacte rem all that apply ia # of Emergency department Answers: 3-4 visits in the last 6 months Social determinants Answers: Mental health diagnosis (anxiety, depression, pers onality disorders, etc.) Score: 8 Date Signed: 03/17/2018 09:23 AM Electronically Signed By:Meeta Woody RN [facility] CM Progress Note CM Note CM Note Notes: 03/16/2018 Case Management Note Met w/pt. Pt admitted from [facility] for treatment of fever, r/o bacteremia, and atelectasis. Pt was admitted to [facility] from 02/21-03/08 with L4-5 diskitis with MSSA. Pt d/c from [facility] on 03/08 to [facility]. Pt is willing to return to [facility] if discharging MD writes specific orders for wound care and PICC line. Discussed with Annabelle from [facility]. [facility] agreeable to pt returning upon discharge. Faxed updates via [employer]. Pt had multiple requests for case management focused largely on wanting assistance to complete paperwork for [employer]. Encouraged pt to rely on local friend and family supports or assistance provided by [employer] insurance to assist with completing paperwork. Case Management will assist if necessary tomorrow. Case Management d/c poc: return to [facility] Case Management to follow. Date Signed: 03/16/2018 12:23 PM Electronically Signed By:Meeta Woody RN Case Management Discharge Plan Note Case Management Discharge Discharge Order Complete? Answers: Yes Patient to Obtain Answers: Other Notes: [facility] Medications Transportation Arranged Answers: Other Notes: transport arranged by [facility] Faxed Final Orders Answers: Yes Notes: [facility] Agency/Facility Transfer Answers: Yes Notes: [facility] Report Printed & Faxed to Receiving Agency Discharge Comments Notes: 03/17/2018 Case Management Note Pt to discharge back to [facility]. Faxed final orders. [facility] arranged transport. RN to call report. Date Signed: 03/17/2018 09:58 AM Electronically Signed By:Meeta Woody RN Intervention Information
--- NOTE | 2018-03-17 16:04 | PDDCSUM ---
Discharge Summary Discharge Summary: Date of Admission: 03/15/2018 Date of Discharge: 03/17/2018 Consultants: infectious disease, neurosurgery Procedures/Studies: none Brief Hospital Course by Diagnosis: 57 yo F who was hospitalized 02/21/18 until 03/08/18 for epidural abscess with associated L4-5 diskitis and MSSA bacteremia presents from [facility] with report of a fever. She was discharged back to SNF. 1. Fever: Afebrile while inpatient. Infectious work up unrevealing. Blood cultures without growth. Surgical site and PICC without active infection. Query drug fever from vancomycin. ID consulted. Continued ceftriaxone at discharge. 2. MSSA epidural abscess w/ L4-5 diskitis: Admitted from 02/21-03/08 for management of this. She follows with Dr. Edmond and has antibiotics planned until 04/16/18. Vancomycin was changed to Ceftriaxone 2 g IV q12h during clinic visit on 03/15. Wound care was consulted. Continued home pain medications. 3. Hypertension: BP controlled. Continued home medications. 4. Normocytic anemia: Mildly decreased from previous values. Ferritin not indicative of iron deficiency and suspect this is due to inflammation. No e/o bleeding. 5. Right ear pain: Exam consistent with otitis externa. Prescribed 5 days of ciprofloxacin ear drops. 6. GERD: Continued H2B 7. Hypothyroid: Continued LTX Follow Up Plan/Items for Follow Up: 1. Continue abx per ID with routine wound and PICC care. Tests Pending at Discharge: finalized blood cultures Medications at Discharge: Please refer to EMR for complete list. Added ciprofloxacin/dexamethasone ear drops. Physical Exam: Vitals reviewed and patient examined on day of discharge. She is alert with normal cardiac, pulmonary and abdominal exams.
== END 2018-03-17 12:45 ==
LOC: EDUNIT# → F2W 22:37
PROVIDERS: ADMIT Family Medicine; ATTEND Family Medicine
DX: R50.82 Postprocedural fever (principal); A49.01 Methicillin susceptible Staphylococcus aureus infection, unspecified site; I10 Essential (primary) hypertension; D64.9 Anemia, unspecified; H60.91 Unspecified otitis externa, right ear; F41.9 Anxiety disorder, unspecified; E03.9 Hypothyroidism, unspecified; K21.9 Gastro-esophageal reflux disease without esophagitis; Z90.49 Acquired absence of other specified parts of digestive tract
CPT/HCPCS: 71046; 97161; G0378; G8978; G8979; 96374; J0696; J2997; J3475

== ENCOUNTER → 2018-06-21 | Outpatient (CLI) | payer OTHER | LOC: CIMAGING 14:28 | PROVIDERS: ATTEND Internal Medicine | DX: Z12.31 Encounter for screening mammogram for malignant neoplasm of breast (principal) ==

== ENCOUNTER → 2018-07-14 | Outpatient (CLI) | payer OTHER | LOC: FIMAGING 09:49 | PROVIDERS: ATTEND Surgery | DX: Z00.00 Encounter for general adult medical examination without abnormal findings (principal) ==

== ENCOUNTER 2018-09-19 11:24 | Emergency (ER) | payer OTHER ==
[2018-09-19 11:36] VITALS: BP 136/98
--- NOTE | 2018-09-19 13:09 | EDPHY ---
H & P Stated Complaint: pt states she is passing out from pain r/t back surgery in february Time Seen by Provider: 09/19/18 11:55 HPI/ROS: CHIEF COMPLAINT: Left upper back pain HISTORY OF PRESENT ILLNESS: 57-year-old female presents with left upper back pain. 7 months ago she developed in the lumbar epidural abscess and received IV antibiotics. Since that admission, she has had ongoing weakness in the right lower extremity. The weakness causes the leg to sometimes go out on her and she has had multiple falls. This is an ongoing problem without recent change. She walks approximately 5 miles a day outside and never has fallen or hurt herself. The episodes always happen when she is inside her house. 3 days ago she was standing in the kitchen, her right leg went out from under her and she grabbed onto the counter top. She developed a twinge in the left upper back after grabbing the counter top. She did not think much of it until the next morning when the pain increased. The pain is now moderate and increases with left arm movement. She took Robaxin today with some relief. In regards to the right leg weakness, she has seen her primary care physician, Dr. Meeta Aponte, and Dr. Gusman for this problem. REVIEW OF SYSTEMS: complete 10 point ROS reviewed and is negative except for the noted elements in the HPI - Personal History Current Tetanus Diphtheria and Acellular Pertussis (TDAP): Yes - Medical/Surgical History Hx Asthma: No Hx Chronic Respiratory Disease: No Hx Diabetes: No Hx Cardiac Disease: No Hx Renal Disease: No Hx Cirrhosis: No Hx Alcoholism: No Hx HIV/AIDS: No Hx Splenectomy or Spleen Trauma: No Other PMH: Med hx-thyroid,htn,environmental allergies, depression, anxiety, eye surgery,. Surg-len and tonsils, spinal abcess surgery 03/02 - Social History Smoking Status: Never smoked - Physical Exam Exam: General Appearance: Sleeping as I enter the room, easily aroused and pleasant Eyes: Pupils equal and round, no conjunctival pallor or injection ENT, Mouth: Mucous membranes moist Neck: Normal inspection Respiratory: Lungs are clear to auscultation Cardiovascular: Regular rate and rhythm Gastrointestinal: Abdomen is soft and nontender Back: Normal inspection, Left periscapular tenderness Neurological: A&O, CN II-XII intact, motor 5/5, sensory intact to light touch Skin: Warm and dry, multiple areas of skin breakdown on distal forearms, with adjacent erythema and no warmth, no areas of ecchymosis or signs of recent trauma Extremities: Nontender, no pedal edema Psychiatric: Mood and affect normal Constitutional: Initial Vital Signs Temperature (C) 36.4 C 09/19/18 11:33 Heart Rate 94 09/19/18 11:33 Respiratory Rate 18 09/19/18 11:33 Blood Pressure 136/98 H 09/19/18 11:33 O2 Sat (%) 99 09/19/18 11:33 O2 Delivery Mode Room Air Allergies/Adverse Reactions: nafcillin Allergy (Intermediate, Verified 09/19/18 11:30) Rash NSAIDS (Non-Steroidal Anti-Inflamma [NSAIDS (Non-Steroidal Anti-Inflammatory Drug)] Allergy (Unknown, Verified 09/19/18 11:30) aspirin Allergy (Verified 09/19/18 11:30) iodine Allergy (Verified 09/19/18 11:31) SOB FOLLOWING AN MRI W/CONTRAST Home Medications: Medication Instructions Recorded Carboxymethylcellulose 1% [Refresh 1 drop EACHEYE PRN PRN 02/21/18 Celluvisc (*)] Cetirizine [ZyrTEC 10 mg (*)] 10 mg PO DAILY 02/21/18 Duloxetine HCl 60 mg PO DAILY 02/21/18 Herbals/Supplements -Info Only 1 ea PO DAILY 02/21/18 Levothyroxine Sodium 200 mcg PO DAILY@06 02/21/18 amLODIPine BESYLATE [Amlodipine 5 mg PO DAILY 02/21/18 Besylate] lamoTRIgine [Lamotrigine] 200 mg PO DAILY 02/21/18 Famotidine [Pepcid 20 MG (*)] 20 mg PO BID tab 03/08/18 Acetaminophen [Tylenol ES 500 mg 1,000 mg PO DAILY@,,03/15/18 (*)] Cyclobenzaprine [Flexeril 10 MG 10 mg PO TID@,,03/15/18 (*)] Gabapentin [Neurontin 400 MG (*)] 400 mg PO TID@,,03/15/18 Lidocaine 4%/Menthol 1% [Icy Hot 1 patch TD DAILY PRN 03/15/18 Lidocaine/Menthol 4%/1% Patch (*)] Loperamide HCl [Imodium 2 mg (*)] 2 mg PO DAILY #0 03/17/18 Loperamide HCl [Imodium 2 mg (*)] 2 mg PO DAILY PRN cap 03/17/18 Medical Decision Making - Diagnostics EKG Interpretation: EKG interpreted by me reveals normal sinus rhythm, rate 72, LAD, poor R-wave progression. Interpretation: Abnormal EKG Imaging Results: Imaging Impressions Chest X-Ray 09/19/18 13:03 Impression: No acute findings in the chest. Imaging: I viewed and interpreted images myself ED Course/Re-evaluation: This pt presents with upper back pain, musculoskeletal in etiology. CXR obtained and reveals no rib fx/PTX. Pt also c/o multiple falls with resultant contusions over the past several months. I carefully examined her and there are no contusions or areas of tenderness. I asked her about the multiple falls, and apparently these only happen in her home and not on her prolonged walks outside. I think that this is unusual and given that her neuro exam is normal and that no contusions are present, I have to question the validity of her c/o. When I d/w pt normal CXR, she became quite animated and upset, stating that she needed pain medication. I offered multiple types of pain medication, but told her that narcotics were not an option. She became quite angry and her behavior escalated to a dramatic and loud level. During this outbreak, remarkably, she did not appear in pain and was moving easily on gurney. I tried to calm her down so that we could have a conversation, but was unsuccessful. The transition program manager was involved and called the pt's PCP to help arrange f/u. Differential Diagnosis: includes though not limited to spinal fx, rib fx, epidural abscess, PTX - Data Points Laboratory Results: Laboratory Results 09/19/18 12:15 09/19/18 12:15 09/19/18 09/19/18 12:15 12:15 WBC 8.51 10^3/uL 10^3/uL (3.80-9.50) RBC 5.18 10^6/uL 10^6/uL (4.18-5.33) Hgb 14.1 g/dL g/dL (12.6-16.3) Hct 42.2 % % (38.0-47.0) MCV 81.5 fL fL (81.5-99.8) MCH 27.2 pg L pg (27.9-34.1) MCHC 33.4 g/dL g/dL (32.4-36.7) RDW 18.1 % H % (11.5-15.2) Plt Count 357 10^3/uL 10^3/uL (150-400) MPV 8.9 fL fL (8.7-11.7) Neut % (Auto) 72.6 % % (39.3-74.2) Lymph % (Auto) 19.6 % % (15.0-45.0) [place] % (Auto) 5.8 % % (4.5-13.0) Eos % (Auto) 1.3 % % (0.6-7.6) Baso % (Auto) 0.5 % % (0.3-1.7) Nucleat RBC Rel Count 0.0 % % (0.0-0.2) Absolute Neuts (auto) 6.18 10^3/uL 10^3/uL (1.70-6.50) Absolute Lymphs (auto) 1.67 10^3/uL 10^3/uL (1.00-3.00) Absolute Monos (auto) 0.49 10^3/uL 10^3/uL (0.30-0.80) Absolute Eos (auto) 0.11 10^3/uL 10^3/uL (0.03-0.40) Absolute Basos (auto) 0.04 10^3/uL 10^3/uL (0.02-0.10) Absolute Nucleated RBC 0.00 10^3/uL 10^3/uL (0-0.01) Immature Gran % 0.2 % % (0.0-1.1) Immature Gran # 0.02 10^3/uL 10^3/uL (0.00-0.10) Sodium 140 mEq/L mEq/L (135-145) Potassium 4.2 mEq/L mEq/L (3.5-5.2) Chloride 111 mEq/L H mEq/L (97-110) Carbon Dioxide 20 mEq/l L mEq/l (22-31) Anion Gap 9 mEq/L mEq/L (6-14) BUN 18 mg/dL mg/dL (7-23) Creatinine 0.8 mg/dL mg/dL (0.6-1.0) Estimated GFR > 60 Glucose 93 mg/dL mg/dL (70-100) Calcium 10.4 mg/dL mg/dL (8.5-10.4) Departure - Departure Disposition: Home, Routine, Self-Care Clinical Impression: Muscle strain of left upper back Qualifiers: Encounter type: initial encounter Qualified Code(s): S29.012A - Strain of muscle and tendon of back wall of thorax, initial encounter Condition: Good Instructions: Thoracic Back Strain (ED) Referrals: Meeta Aponte MD [Primary Care Provider] - 2-3 days, if not improved
[2018-09-19 13:20] LABS: PLATELET COUNT 357 10^3/uL (150-400)
--- NOTE | 2018-09-19 15:24 | CPEKG ---
Test Reason : OPEN Blood Pressure : / mmHG Vent. Rate : 072 BPM Atrial Rate : 072 BPM P-R Int : 145 ms QRS Dur : 093 ms QT Int : 396 ms P-R-T Axes : 032 -32 013 degrees QTc Int : 434 ms Sinus rhythm LAD erior infarct, old Confirmed by Usha Jones ([id number]) on 09/19/2018 3:24:13 PM Referred By: Usha Jones Confirmed By:Usha Jones
--- NOTE | 2018-09-19 16:43 | ASMTCMCOM ---
CM Note CM Note Notes: Pt presented to the ED for syncopal events and falls the past few days. Pt assessed (labs, chest xray and EKG are WNL) and was ready for discharge when she became upset with the ED MD because she was not providing her with stronger pain medications other than the Robaxin she already takes. Pt was yelling at the ED MD stating "You aren't helping me. Give me an alternative to the Robaxin and Tylenol. This place sucks. My life sucks. Nobody f*#ernestina cares about me." Pt eventually left the ED AMA. See ED RN Note. CM contacted pt's PCP Dr. Beulah Aponte's RN Dress Draper (it is currently either Deepa Carrizales or Cassie Woody ([phone]) who are covering [facility] (main clinic [phone]) at this time) and relayed pt's ED visit and concerns re:pt's behavior and pain management issues. Spoke w/Cassie and she states pt was last seen by Dr Aponte on 09/15/18 and has been seen by their Behavioral Health Specialist multiple times in the past as well. Pt is also seen at [facility] and has an appt with a psychiatrist in November. Cassie states an RN [employer] Draper will reach out to the patient for followup and assist as needed. CM available for further assistance if needed. Date Signed: 09/19/2018 04:43 PM Electronically Signed By:Coleen Dixon RN
== END 2018-09-19 13:54 | disposition home or self-care (01) ==
DX: S29.012A Strain of muscle and tendon of back wall of thorax, initial encounter (principal)